=== PATIENT | female | born 1965 | race Hispanic/Latino ===

== ENCOUNTER 2018-03-26 11:58 | Emergency (ER) | payer MEDICARE, SELFPAY ==
[2018-03-26 11:59] VITALS: BP 129/84; PULSE 89; RESP 16; TEMP 36.3; BMI 30.1
[2018-03-26 12:04] VITALS: PULSE 87; RESP 16; O2SAT 97
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
[2018-03-26] MEDS: Ibuprofen 400 MG Tablet 800 MG PO (12:34)
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
[2018-03-26 13:32] VITALS: BP 108/78; PULSE 84; RESP 16; O2SAT 98
== END 2018-03-26 13:34 | disposition home or self-care (01) ==
PROVIDERS: Emergency Provider Emergency Medicine; Family Provider Family Medicine; PCP Family Medicine
DX: S16.1XXA Strain of muscle, fascia and tendon at neck level, initial encounter (principal); V53 Occupant of pick-up truck or van injured in collision with car, pick-up truck or van; Y93.9 Activity, unspecified; Y92.481 Parking lot as the place of occurrence of the external cause; Y99.9 Unspecified external cause status
CPT/HCPCS: 72040; 99282

== ENCOUNTER 2018-08-19 16:34 | Emergency (ER) | payer MEDICARE, SELFPAY ==
[2018-08-19 16:35] VITALS: BP 143/84; PULSE 91; RESP 16; TEMP 36.4; O2SAT 98; BMI 29.6
--- NOTE | 2018-08-19 19:27 | CT_ITS ---
STUDY: CT BRAIN WITHOUT CONTRAST REASON FOR EXAM: Female, 52 years old. Headache, dizziness RADIATION DOSAGE (If Supplied By Facility): CTDIvol = ( 44.99 ) mGy, DLP = ( 796.11 ) mGycm TECHNIQUE: Transaxial CT imaging of the brain was performed without administration of intravenous contrast material. Individualized dose optimization techniques were used for this CT. COMPARISON: None. FINDINGS: Normal soft tissue structures. Normal calvarium. Normal size ventricles and extra-axial spaces for the patient's age. Normal white matter tracts of the cerebral hemispheres. Normal basal ganglia and thalami. Normal brainstem. Normal cerebellum. There is no intracranial hemorrhage. There are no findings of an acute ischemic infarction. Normal visualized paranasal sinuses. CT/Brain/Head without Contrast IMPRESSION: Normal unenhanced CT scan of the brain. Electronically Signed: Jac Larose DO at 20:29 EDT Tel [phone], Service support ,
[2018-08-19] MEDS: Ondansetron ODT 4 MG Tablet PO (19:45)
[2018-08-19 21:01] VITALS: BP 136/78; PULSE 88; RESP 16; O2SAT 98
--- NOTE | 2018-08-19 21:02 | ED.VISSUMM ---
- ER Visit Summary Date of Service: 08/19/18 Chief Complaint: Headache History of Present Illness: The patient is a 52 F presenting with headache. She states this headache has been ongoing for several months. 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 She did not follow up following this diagnosis. She has had no recent trauma. She has nausea associated with vomiting. Denies numbness or weakness. Denies fever. Denies new complaints. Physical Examination: Vitals are stable. Patient is afebrile. Alert no acute distress. HEENT exam is unremarkable. Neck is supple. No meningismus Lungs are clear and equal bilaterally. Heart is regular rate and rhythm. Abdomen is soft nontender nondistended. Extremities are unremarkable. Skin is warm and dry. No focal neurologic deficit. Normal strength and sensation Remainder of exam is unremarkable. Emergency Department Course and Treatment: Patient drove herself to the emergency department. She was given Zofran p.o. with improvement of her nausea. CT head shows no acute process. Patient is resting comfortably on reevaluation. She is given Dr. Roldan for neurology follow-up. She is advised to return to ED for any worsening complaints. Disposition: Discharge home Impression: Chronic headaches This note was generated with [employer] dictation software. It may contain incorrect words, spelling, and punctuation that were not noted in review of the chart prior to signing ED Disposition - Plan for ED Patient: Chief Complaint: Headache Referrals: Daniel Stapleton MD [Primary Care Provider] -
--- NOTE | 2018-08-19 21:04 | ED.DEP ---
ED Disposition - Plan for ED Patient: Chief Complaint: Headache Instructions: ED Cephalgia Unspecified Referrals: Daniel Stapleton MD [Primary Care Provider] - Jeff Roldan MD [STAFF PHYSICIAN] -
== END 2018-08-19 21:10 | disposition home or self-care (01) ==
LOC: ED 19:09
PROVIDERS: Emergency Provider Emergency Medicine; Family Provider Family Medicine; PCP Family Medicine
DX: R51 Headache (principal); R11.2 Nausea with vomiting, unspecified; Z72.0 Tobacco use; M85.2 Hyperostosis of skull
CPT/HCPCS: 70450; 99282

== ENCOUNTER → 2018-08-20 10:21 | Outpatient (CLI) | payer MEDICARE, SELFPAY | PROVIDERS: Family Provider Family Medicine; PCP Family Medicine; Visit Provider Family Medicine | DX: Z00.00 Encounter for general adult medical examination without abnormal findings (principal) | CPT/HCPCS: 36415 ==

== ENCOUNTER 2018-09-10 13:43 | Emergency (ER) | payer MEDICARE, SELFPAY ==
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
[2018-09-10 13:45] VITALS: BP 112/64; PULSE 94; RESP 16; TEMP 36.7; O2SAT 97; BMI 27.5
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
--- NOTE | 2018-09-10 14:10 | CM.ED ---
Call placed to social sciences professor, Francine Carver. No response at this time. Will attempt to reach other available social workers.
[2018-09-10 14:52] VITALS: BP 135/108; PULSE 96; RESP 15; O2SAT 100
--- NOTE | 2018-09-10 14:58 | EKG12_ITS ---
Test Reason : DYSRHYTHMIA Blood Pressure : / mmHG Vent. Rate : 070 BPM Atrial Rate : 070 BPM P-R Int : 138 ms QRS Dur : 076 ms QT Int : 432 ms P-R-T Axes : 059 046 048 degrees QTc Int : 466 ms Normal sinus rhythm Normal ECG Confirmed by TOI SEN, SOPHIA ([id number]), web editor GOLD HARPER ([id number]) on 09/14/2018 3:22:19 PM Referred By: MARY ANNE Confirmed By:SOPHIA CM MD
--- NOTE | 2018-09-10 15:10 | NURSING ---
NO OLD EKGS
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
[2018-09-10] MEDS: Acetaminophen 500 MG Tablet 1000 MG PO (15:23)
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
[2018-09-10 16:09] LABS: Absolute Lymphocyte Count 2.33 X10^3/ul (0.83-4.51); Absolute Neutrophil Count 4.1 X10^3/uL (2.0-7.7); Basophil# 0.01 X10^3/uL; Basophil% 0.1 % (0-1); Eosinophil# 0.09 X10^3/uL; Eosinophils% 1.3 % (0-5); Hematocrit 41.3 % (37-47); Hemoglobin 13.6 g/dl (12.0-15.0); Lymphocyte # 2.33 X10^3/ul (4.0); Lymphocyte % 34.1 % (19-41); Mean Corp Hgb Conc 32.9 g/gl (32-36); Mean Corpuscular Hgb 29.9 pg (27.0-32.0); Mean Corpuscular Volume 90.8 fL (81-99); Mean Platelet Vol. 10.4 fl (6.2-12.0); Monocyte# 0.33 X10^3/uL; Monocyte% 4.8 % (0-10); Neutrophil # 4.06 X10^3/uL (2.7-7.7); Neutrophil % 59.6 % (47-70); Platelet Count 268 K/mm3 (150-450); RBC Distribution Width CV 15.6 % (11.6-14.6); RBC Distribution Width SD 51.8 fl (35.1-43.9); Red Blood Count 4.55 M/mm3 (4.2-5.4); White Blood Count 6.8 K/mm3 (4.4-11.0)
[2018-09-10 16:10] LABS: POSITIVE COUNT NO; POSITIVE DIFFERENTIAL NO; POSITIVE MORPHOLOGY NO
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
[2018-09-10 16:27] LABS: Anion Gap 8 (5-15); BUN 11 mg/dL (7-18); BUN/Creat Ratio 11.5 RATIO (10-20); Calcium,Total 8.7 mg/dL (8.5-10.1); Chloride 111 mmol/L (98-107); Creatinine, Serum 0.95 mg/dL (0.55-1.02); EST Glomerular Filtration Rate 66 mL/min (>60); Est Glom Filt Rate - Afr Amer 79 mL/min (>60); Estimated Creatinine Clearance 70.67 ml/min; Glucose 94 mg/dL (74-106); Potassium 3.2 mmol/L (3.5-5.1); Sodium Level 144 mmol/L (136-145)
[2018-09-10 16:29] LABS: Acetaminophen (Tylenol) Level < 2.0 ug/mL (10.0-30.0); Salicylate 2.7 mg/dL (2.8-20.0)
[2018-09-10 16:34] LABS: Pregnancy, Serum, hCG Quali. NEGATIVE Negative (0-9 Nonpreg)
[2018-09-10 16:42] VITALS: BP 120/99; PULSE 87; RESP 16; O2SAT 97
--- NOTE | 2018-09-10 16:54 | ED.RN ---
PRESCRIPTION BOTTLES GIVEN BACK TO SPOUSE.
[2018-09-10 18:08] VITALS: BP 136/80; PULSE 77; RESP 16; O2SAT 97
[2018-09-10 18:21] LABS: Mucous, Urine 0 SEEN /hpf (<or=2+); Red Blood Cells-Urine 0 SEEN /hpf (0-5); White Blood Cells 0 SEEN /hpf (0-5)
[2018-09-10 18:33] LABS: Color, Urine Yellow (Yellow); Glucose, Dipstick Normal (Normal); Ketone-Dipstick Negative (Negative); Leukocyte Esterase-Dipstick Negative /ul (Negative); Nitrite-Dipstick Negative (Negative); Occult Blood-Urine 10 /ul (Negative); Protein-Dipstick Negative (Negative); Urine Bilirubin Dipstick Negative (Negative); Urine Clarity Sl. Cloudy (Clear); Urine Urobilinogen 1 mg/dl (Normal)
[2018-09-10 18:52] LABS: Squamous Epithelial Cells - UA 0-5 SEEN /hpf (5-10)
[2018-09-10 18:53] LABS: Amorphous Sediment 1+; Bacteria RARE /hpf (None Seen)
[2018-09-10 19:01] LABS: Amphetamine Urine VISTA NEGATIVE (<1000 ng/mL); Barbiturate Urine VISTA NEGATIVE (< 200 ng/mL); Benzodiazepine Urine VISTA NEGATIVE (< 200 ng/mL); Cocaine Urine VISTA NEGATIVE (< 300 ng/mL); Ecstacy Urine VISTA NEGATIVE (< 500 ng/mL); Methadone Urine VISTA NEGATIVE (< 300 ng/mL); PCP Urine VISTA NEGATIVE (< 25 ng/mL); THC Urine VISTA NEGATIVE (< 50 ng/mL); Vista UDS pH Range 7
[2018-09-10 20:07] VITALS: PULSE 86; RESP 16; O2SAT 97
[2018-09-10 22:00] VITALS: RESP 16
[2018-09-11] VITALS (8 sets, daily range): BP systolic 110–128; BP diastolic 68–76; PULSE 70–85; RESP 13–20; O2SAT 95–99
[2018-09-11] MEDS: Gabapentin 600 MG Tablet PO (08:56)
[2018-09-11] MEDS: Divalproex Sodium 125 MG Tablet PO (08:56)
[2018-09-11] MEDS: FLUoxetine 20 MG Capsule 60 MG PO (08:57)
[2018-09-11] MEDS: Furosemide 40 MG Tablet PO (08:57)
[2018-09-11] MEDS: Topiramate 50 MG Tablet PO (08:57)
--- NOTE | 2018-09-11 10:43 | ED.RN ---
CALLED [facility] AT [phone] AND DISPATCHER STATED THAT THE SQUAD SHOULD BE HERE IN 30-45 MINUTES.
== END 2018-09-11 11:13 ==
LOC: ED 15:00
PROVIDERS: Emergency Provider Emergency Medicine; Family Provider Family Medicine; PCP Family Medicine
DX: T14.91XA Suicide attempt, initial encounter (principal); T43.592A Poisoning by other antipsychotics and neuroleptics, intentional self-harm, initial encounter; F41.9 Anxiety disorder, unspecified; Z72.0 Tobacco use; F31.9 Bipolar disorder, unspecified; Y92.9 Unspecified place or not applicable; Y93.9 Activity, unspecified; Y99.9 Unspecified external cause status
CPT/HCPCS: 70450; 80048; 80307; 80320; 80329; 81001; 84703; 85025; 93005; 99285; G0480

== ENCOUNTER → 2018-10-09 16:07 | Outpatient (CLI) | payer MEDICARE, SELFPAY ==
[2018-10-09 17:56] LABS: ALB/GLOB Ratio 0.9 RATIO (0.9-2.4); AST(SGOT) 17 U/L (15-37); Alanine Aminotransfer ALT/SGPT 27 U/L (13-56); Albumin, Serum 3.2 g/dL (3.2-5.0); Alkaline Phosphatase 101 U/L (45-117); Anion Gap 6 (5-15); BUN 7 mg/dL (7-18); BUN/Creat Ratio 8.3 RATIO (10-20); Calcium,Total 8.5 mg/dL (8.5-10.1); Chloride 108 mmol/L (98-107); Creatinine, Serum 0.84 mg/dL (0.55-1.02); EST Glomerular Filtration Rate 76 mL/min (>60); Est Glom Filt Rate - Afr Amer 92 mL/min (>60); Globulin 3.5 g/dL (2.2-4.2); Glucose 79 mg/dL (74-106); Potassium 3.3 mmol/L (3.5-5.1); Protein, Total 6.7 g/dL (6.4-8.2); Sodium Level 140 mmol/L (136-145)
[2018-10-09 18:42] LABS: HIV - WCH Non-Reactive (Nonreactive)
== END ==
PROVIDERS: Family Provider Family Medicine; PCP Family Medicine; Visit Provider Family Medicine
DX: Z20.6 Contact with and (suspected) exposure to human immunodeficiency virus [HIV] (principal)
CPT/HCPCS: 36415; 80053; 86703

== ENCOUNTER → 2018-12-08 16:10 | Outpatient (CLI) | payer MEDICARE, SELFPAY ==
[2018-12-11 12:45] LABS: HPV Reflexed? NOT INDICATED
== END ==
PROVIDERS: Family Provider Family Medicine; PCP Family Medicine; Referring Provider Nurse Practitioner Adult Health; Visit Provider Nurse Practitioner Adult Health
DX: Z01.419 Encounter for gynecological examination (general) (routine) without abnormal findings (principal)
CPT/HCPCS: 88175; G0145

== ENCOUNTER → 2018-12-14 13:16 | Outpatient (CLI) | payer MEDICARE, SELFPAY ==
--- NOTE | 2018-12-14 13:19 | BI_ITS ---
MAMMOGRAPHY - BILATERAL DIAGNOSTIC REASON FOR EXAM: Female, 53 years old. Left breast thickening/lump with pain and redness. PERTINENT HISTORY: Patient has a history of prior bilateral breast reduction surgery. TECHNIQUE: Digital bilateral breast dalila (3D mammographic acquisition) in the CC and MLO projections. 2-D mediolateral oblique (MLO) and craniocaudad (CC) views of both breasts were obtained. CAD: Full Field Digital Mammography with Computer Added Detection was performed. COMPARISON: No comparison mammograms available at this time. If any prior films become available, an addendum to this report can be generated. FINDINGS: Breast Composition: The breasts are heterogeneously dense, which may obscure small masses. Well-defined nodular density is seen in the upper outer quadrant of the right breast. This measures 2.3 cm x 1.3 cm. Asymmetrical nodular density seen in the upper slightly lateral aspect of the left breast. This corresponds to the palpable abnormality. This measures 3 cm x 4.4 cm. Correlation with ultrasound is recommended bilaterally. Small bilateral axillary lymph nodes. No other significant abnormalities are identified. BI/DIAG MAMM W/CAD, BILAT IMPRESSION: Nodular density in the upper outer quadrant of the right breast as well as asymmetrical density in the left breast corresponding to the palpable abnormality. Correlation with ultrasound of both breasts is recommended. ASSESSMENT CATEGORY: BIRADS Category 0: Incomplete. Need additional imaging evaluation. A letter regarding these results will be sent to the patient by the facility within 30 days. Approximately 10% of breast cancers are not detected by mammography. A normal mammogram should not delay biopsy of a clinically suspicious abnormality. Electronically Signed: Edilberto Farah MD at 8:42 EST Tel [phone], Service support ,
--- NOTE | 2018-12-14 13:19 | US_ITS ---
STUDY: ULTRASOUND BREAST - RIGHT REASON FOR EXAM: Female, 53 years old. TECHNIQUE: Axial and longitudinal images of the RIGHT breast were performed with a high resolution ultrasound transducer. COMPARISON: Comparison is made with prior mammogram done earlier in the day. FINDINGS: RIGHT Breast: There is a 3 mm x 4 mm x 2 mm benign appearing lymph node at the 9:00 position of the breast at 1 cm from the nipple. There is also evidence of a 1.5 cm x 1.4 cm x 0.6 cm hypoechoic irregular nodular density seen at the 10:00 position of the breast at 8 cm from the nipple. A biopsy is recommended for further evaluation. IMPRESSION: 1.5 cm x 1.4 cm x 0.6 cm hypoechoic slightly irregular nodule at the 10:00 position in the breast M is from nipple. A biopsy recommended for further evaluation. ASSESSMENT CATEGORY: BIRADS Category 4: Suspicious - Biopsy Should Be Considered. A letter regarding these results will be sent to the patient by the facility within 30 days. Electronically Signed: Edilberto Farah MD at 8:43 EST Tel [phone], Service support , STUDY: ULTRASOUND BREAST - LEFT REASON FOR EXAM: Female, 53 years old. Palpable lump left breast. TECHNIQUE: Axial and longitudinal images of the LEFT breast were performed with a high resolution ultrasound transducer. COMPARISON: Comparison is made with prior mammogram done earlier today. FINDINGS: LEFT Breast: The upper outer quadrant of the left breast was examined by ultrasound. The palpable abnormality corresponds to a focal area of dense fibroglandular tissue. Incidental note is made of a 6 mm x 6 mm x 4 mm cyst at the 1:00 position of the breast at 8 cm from the nipple. US/Breast Limited Unilateral IMPRESSION: The palpable abnormality corresponds to dense fibroglandular tissue. 6 mm x 6 mm x 4 mm cyst at the 1:00 position of the breast at 8 cm some the nipple. ASSESSMENT CATEGORY: BIRADS Category 2: Benign. A letter regarding these results will be sent to the patient by the facility within 30 days. Electronically Signed: Edilberto Farah MD at 8:45 EST Tel [phone], Service support ,
== END ==
PROVIDERS: Family Provider Family Medicine; PCP Family Medicine; Referring Provider Nurse Practitioner Adult Health; Visit Provider Nurse Practitioner Adult Health
DX: N63.23 Unspecified lump in the left breast, lower outer quadrant (principal)
CPT/HCPCS: 76642; 77062; 77066; G0279

== ENCOUNTER → 2018-12-22 08:07 | Outpatient (CLI) | payer MEDICARE, SELFPAY ==
[2018-12-16 13:20] VITALS: BMI 26.7
--- NOTE | 2018-12-22 08:23 | MRI_ITS ---
STUDY: BILATERAL BREAST MR WITHOUT AND WITH CONTRAST REASON FOR EXAM: Female, 53 years old. Left breast pain. Right breast mass. History of bilateral breast reduction surgery. TECHNIQUE: Multi-sequence multi-echo imaging of both breasts was performed with a dedicated breast coil. T1-weighted and T2-weighted images were performed before the administration of contrast. T1-weighted images were also performed after the administration of 9 mL of Gadavist contrast intravenously without complications. COMPARISON: Bilateral mammogram dated December 14, 2018 and right and left breast ultrasound examinations dated December 14, 2018. FINDINGS: RIGHT BREAST: The breast tissue is scattered fibroglandular densities with no background enhancement. There are no abnormal enhancing masses or areas of non-mass enhancement in the right breast. The hypoechoic mass at the 10:00 position of the right breast 8 cm from the nipple seen on the ultrasound shows no enhancement on the breast MRI study. However, it is still recommended that ultrasound-guided biopsy/excision of this mass be performed because of its ultrasonographic characteristics. LEFT BREAST: The breast tissue is scattered fibroglandular densities with no background enhancement. There are no abnormal enhancing masses or areas of non-mass enhancement in the left breast. There are no enlarged or abnormal lymph nodes. There is no abnormality in the visualized regions of the chest or liver. MRI/Breast Bilateral W/O and W IMPRESSION: No significant abnormality on the breast MRI study with contrast. Ultrasound-guided biopsy/excision of the right breast mass seen on ultrasound is recommended for histologic confirmation, as outlined above. CATEGORY: BIRADS Category 4: Suspicious - Biopsy Should Be Considered. A letter regarding these results will be sent to the patient by the facility within 30 days. Electronically Signed: Navneet Yoon MD at 14:25 EST , Service support ,
--- OUTSIDE RECORDS SUMMARY | 2019-02-23 08:47 | XMS RPT_ITS ---
:1965 Author Organization OHIP Support Name Relationship Address Phone PREETI BRYANT Unavailable [address] + [address] [place] [address] D Unavailable Unavailable Unavailable SIXTO HERRERA Unavailable Unavailable + [place] [address] PREETI BRYANT Unavailable [address] + [address] [place] [address] D Unavailable Unavailable Unavailable PREETI BRYANT Unavailable [address] [place] [address] D Unavailable Unavailable Unavailable PREETI BRYANT Unavailable [address] [place] [address] D Unavailable Unavailable Unavailable PREETI BRYANT Unavailable [address] + [address] [place] [address] D Unavailable Unavailable Unavailable PREETI BRYANT Unavailable [address] [place] [address] D Unavailable Unavailable Unavailable PREETI BRYANT Unavailable [address] [place] [address] D Unavailable Unavailable Unavailable PREETI BRYANT Unavailable [address] [place] [address] D Unavailable Unavailable Unavailable PREETI BRYANT Unavailable [address] + [place] [address] UNE Unavailable Unavailable Unavailable PREETI BRYANT Unavailable [address] [place] [address] D Unavailable Unavailable Unavailable Care Team Providers Name Role Phone Jen Mcdermott Attending Unavailable Jen Mcdermott Referring Unavailable Daniel Stapleton Primary Care Unavailable Jen Mcdermott Attending Unavailable Jen Mcdermott Referring Unavailable Stapleton, Daniel Primary Care Unavailable Stapleton, Daniel Primary Care Unavailable Clint Wells Attending Unavailable Stapleton, Daniel Primary Care Unavailable Mehreen Harvey Attending Unavailable Stapleton, Daniel Attending Unavailable Stapleton, Daniel Primary Care Unavailable Stapleton, Daniel Primary Care Unavailable Ciro John Attending Unavailable Stapleton, Daniel Attending Unavailable Stapleton, Daniel Primary Care Unavailable Robotham, Evita Attending Unavailable Tickton, Jen Referring Unavailable Robotham, Evita Attending Unavailable Robotham, Evita Referring Unavailable Stapleton, Daniel Primary Care Unavailable Leila Katz Attending Unavailable Stapleton, Daniel R Primary Care Unavailable JHONNY LENTZ Referring Unavailable AUSTIN, JODI Attending Unavailable AUSTIN, JODI Attending Unavailable QUANG PORTER Attending Unavailable QUANG PORTER Attending Unavailable ALICE UNDERWOOD, DR. DANIEL Keen Attending Unavailable ALICE UNDERWOOD, DR. DANIEL Keen Attending Unavailable PROBLEMS PROBLEMS DATE TYPE CONDITION / CODE ATTENDING STATUS SOURCE 12/16/2018 Unknown N64.4 - Robotham, Active [place] Mastodynia [facility] N64.4(ICD-10) Hospital Repository 12/16/2018 Unknown N63.10 - [place], Active [place] Unspecified lump [facility] in the right Hospital breast, Repository unspecified quadrant / N63.10(ICD-10) 12/14/2018 Unknown N63.23 - Tickton, Active [place] Unspecified lump [facility] in the left Hospital breast, lower Repository outer quadrant / N63.23(ICD-10) 08/31/2018 Unknown Z00.00 - Daniel Stapleton Active [place] Encounter for [facility] medical Repository examination without abnormal findings / Z00.00(ICD-10) 07/09/2018 Active Unknown / NA Active [facility] UNK(Unknown) Main [place] Repository 07/09/2018 Unknown M54.2 - Clint Wells Active [place] Cervicalgia / [facility] M54.2(ICD-10) Hospital Repository PROCEDURES PROCEDURES No Procedure Records FoundRESULTS RESULTS BREAST BILATERAL W/O Observed: 12/22/2018 Status: F Source: [place] 8:24 AM [facility] [place] REPOSITORY [facility] Imaging Services [address] [place] [address] Breast Bilateral W/O and W MR#: [id number] Acct: [id number] Name: SHIREEN BRYANT Rep #: [id number] : 1965 F 53 From: Navneet Yoon MD PCP: Daniel Stapleton MD Status: REG CLI Study: Breast Bilateral W/O and W Date of Exam: 12/22/18 Exam# [id number] Ordering Dr: Evita Davies MD STUDY: BILATERAL BREAST MR WITHOUT AND WITH CONTRAST REASON FOR EXAM: Female, 53 years old. Left breast pain. Right breast mass. History of bilateral breast reduction surgery. TECHNIQUE: Multi-sequence multi-echo imaging of both breasts was performed with a dedicated breast coil. T1-weighted and T2- weighted images were performed before the administration of contrast. T1- weighted images were also performed after the administration of 9 mL of Gadavist contrast intravenously without complications. COMPARISON: Bilateral mammogram dated December 14, 2018 and right and left breast ultrasound examinations dated December 14, 2018. FINDINGS: RIGHT BREAST: The breast tissue is scattered fibroglandular densities with no background enhancement. There are no abnormal enhancing masses or areas of non-mass enhancement in the right breast. The hypoechoic mass at the 10:00 position of the right breast 8 cm from the nipple seen on the ultrasound shows no enhancement on the breast MRI study. However, it is still recommended that ultrasound-guided biopsy/excision of this mass be performed because of its ultrasonographic characteristics. LEFT BREAST: The breast tissue is scattered fibroglandular densities with no background enhancement. There are no abnormal enhancing masses or areas of non-mass enhancement in the left breast. There are no enlarged or abnormal lymph nodes. There is no abnormality in the visualized regions of the chest or liver. MRI/Breast Bilateral W/O and W IMPRESSION: No significant abnormality on the breast MRI study with contrast. Ultrasound-guided biopsy/excision of the right breast mass seen on ultrasound is recommended for histologic confirmation, as outlined above. CATEGORY: BIRADS Category 4: Suspicious - Biopsy Should Be Considered. A letter regarding these results will be sent to the patient by the facility within 30 days. Electronically Signed: Navneet Yoon MD at 14:25 EST , Service support , CC: Daniel Stapleton MD; Evita Davies MD Shipboard Intelligence Analyst: Signed SURGERY VISIT REPORT Observed: 12/18/2018 Status: F Source: [place] 8:30 AM [facility] [place] REPOSITORY [facility] [address] [place] [address] OFFICE VISIT Date of Service: 12/16/18 MR#: [id number] Acct: [id number] Name: SHIREEN BRYANT Rep #: [id number] : 1965 Provider: Evita Davies MD Age/Sex: 53/F Location: [facility] Status: Signed Intake Vital Signs12/16/18 Height 5 ft 8 in 12/16/18 Weight: 176 lb Intake Visit Reasons: L Breast Birads 4 Stallion Manager Required: No Is patient in pain?: No Allergies No Known Allergies Allergy (Verified 12/16/18 13:21) Medications Fluoxetine HCl [Prozac] 60 mg PO DAILY 09/10/18 [History Confirmed 12/16/18] Gabapentin [Neurontin] 600 mg PO DAILY 09/10/18 [History Confirmed 12/16/18] Meclizine HCl [Travel Sickness] 25 mg PO 09/10/18 [History Confirmed 12/16/18] buspirone 5 mg tablet 5 mg PO .prn tab 12/16/18 [History Confirmed 12/16/18] lurasidone 20 mg tablet 20 mg PO DAILY 12/16/18 [History Confirmed 12/16/18] [facility] Medical History Abnormal mammogram (Acute) Arthritis (Acute) Back problem (Acute) Depression with anxiety (Acute) Occipital neuralgia (Acute) Seizures (Acute) Surgical History History of bilateral breast reduction surgery (Acute) History of shoulder surgery (Acute) Family History Mother Asthma Arthritis Diabetes Hypertension High cholesterol Uncle Colon cancer CVA (cerebral vascular accident) Aunt Cancer leukemia Heart disease Social History Smoking Status: Current every day smoker alcohol intake: never substance use type: does not use HPI HPI HPI: SHIREEN BRYANT, is a 53 F who presents to the office today for abnormal breast imaging. Patient states that back in the beginning of December she did have the flu with body aches chills but she also began having left-sided breast pain that started about at the 3:00 area of the left breast and could radiate up towards her chest or towards the axilla and then down the upper part of the arm. Patient states she did recover from her flulike symptoms. But since then she still had some nausea and vomiting x3 and she did still feel chills like this morning at 5 AM she had left pain in her lateral breast even just after she was putting out a cigarette. Patient states she gets the shooting sharp pains multiple times a day and they can last for seconds or occasionally they can last around 20 minutes and usually settling in the lateral aspect of the left breast. Prior to December she states she has had some burning sensation along her reduction scars but it was nothing like this current pain. Patient does admit to a lot of caffeine intake. Patient does have past medical history of bilateral breast reduction done in 2008 in [place]. She denies any trauma to her breast or any nipple discharge or changes to overlying skin. Patient did have a bilateral diagnostic mammogram and bilateral ultrasounds. The diagnostic mammogram on the right did see a well-defined nodular density in the upper outer quadrant and on the left side area that of asymmetrical nodular density in the upper slightly lateral aspect of the left breast. Given a BI-RADS 0. The ultrasound of the right breast did show a 1.5 cm x 1.4 cm x 0.6 cm hypoechoic slightly irregular nodule at 10:00 8 cm from the nipple. Given a BI-RADS 4. Patient's left breast ultrasound only showed focal area of dense fibroglandular tissue and a simple cyst at 1:00 8 cm from the nipple given a BI-RADS 2. Nellie model Age: 53 Age of menses: 13 Age at time of first child: 33 Family history of breast cancer: None Number of past breast biopsies: None Number breast biopsy showing atypical hyperplasia: N/A Race/ethnicity: 5 year risk 1.5 % (average of 1.2 %) Lifetime risk 10.6 % (average 8.7 %) ROS General General: Yes fatigue; no weight change, appetite, colon cancer, breast cancer or weakness HEENT HEENT: No difficulty swallowing, eye injury, eye surgery, swollen glands or hoarseness Endo Endocrine: No thyroid disease, diabetes mellitus, thyroid cancer, Hair loss, heat intolerance or cold intolerance Skin Skin: No rash or changing moles Breast Breast: Yes abnormal mammogram; no left breast lump, right breast lump, nipple discharge, breast pain, abnormal US or breast enlargement Musc Musculoskeletal: Yes back problems and arthritis; no rheumatoid arthritis, gout or joint pain Cardio Cardiovascular: No murmur, pacemaker, heart disease, atrial fibrillation, high blood pressure, heart attack, heart stent, palpitations, shortness of breat with exertion or chest pain Psych Psychiatric: Yes depression and anxiety; no hearing voices Resp Respiratory: No shortness of breath, Yes sleep apnea, Yes cough, No COPD, No asthma, No emphysema, No wheezing Gastro Gastrointestinal: No abdominal pain, Yes nausea or vomiting, No diarrhea, No constipation, No blood in stool, No acid reflux, No hemorrhoids, No ulcers, No gallbladder problem, No black,tarry stools Jack Hematologic: No blood thinners, No blood disorders, No bleeding, No anemia, No blood clots Neuro Neurologic: No system reviewed and no additional complaints, except as docu, No as per HPI, No abnormal walking, No abnormal hearing, No abnormal movements, No abnormal speech, No behavioral changes, No burning sensations, No confusion, No seizure-like activity, No unsteadiness, No dizziness, No localized weakness, No frequent falls, No headache(s), No lack of coordination, No loss of vision, No memory loss, Yes numbness, No other visual disturbances, No radiating pain, No restless legs, No sensory deficit, No fainting, Yes tingling, No tremor(s), No weakness, No other Exam Const General: cooperative, comfortable, no acute distress Chest Breast inspection: normal inspection of the breasts Breast Palpation: No nipple discharge Other: Inspection: Symmetric bilaterally, right breast: no masses or lumps appreciated, fibroglandular, no nipple discharge. Left breast: No lumps or masses appreciated, tenderness palpation about 9:00, fibroglandular, no nipple discharge, no supraclavicular or axillary adenopathy bilaterally Cardio Heart Sounds: no murmurs Assessment AND Plan Problems 1. Breast pain, left N64.4 2. Mass of right breast on mammogram N63.10 Plan Patient's main complaint is her left breast pain which does radiate to her chest as well as axilla but imaging does not show any obvious lesions at the site. Also on exam she does have fibroglandular breast tissue unable to feel any discrete masses on either breast. Ultrasound did show a hypoechoic lesion on her right breast at 10:00 8 cm from the nipple. Will plan to get breast MRI to better evaluate for the breast pain and prior to doing the breast biopsy. I have discussed above with the patient. I have recommended RIGHT ultrasound guided needle core breast biopsy with vacuum assistance. I have described the procedure to the patient. A marker clip will be placed to identify the location. Patient has been counseled to the risks/benefits of the procedure. I have explained the risks of the surgery, including but not limited to: infection, bleeding, injury to any blood vessels/nerves, scar tissue, missing the lesion, further surgery, etc. - the patient understands and agrees to proceed. I have answered all of the patient's questions to her satisfaction and she has no further questions. Evita Davies M.D. Pager: [phone] [facility] [address] [place] [address], [address] [place] [address] Office: [phone] Orders Orders: Plan Detail Follow Up schedule MRI then us guided bx of right Coding Level of Care Code Off vis,new,level 4 Diagnoses Breast pain, left N64.4 Mass of right breast on mammogram N63.10 Time Spent (min) 45 12/18/18 0830 <Electronically signed by Evita Davies MD> Date Evita Davies MD Cosigner Signature: Date (if applicable) CC: JESSICA Mcdermott; Daniel Stapleton MD DIAG MAMM W/CAD, Observed: 12/14/2018 Status: F Source: [place] 1:23 PM [facility] REPOSITORY [facility] Imaging Services [address] [place] [address] DIAG MAMM W/CAD, BILAT MR#: [id number] Acct: [id number] Name: SHIREEN BRYANT Rep #: [id number] : 1965 F 53 From: Edilberto Farah MD PCP: Daniel Stapleton MD Status: REG CLI Study: DIAG MAMM W/CAD, BILAT Date of Exam: 12/14/18 Exam# [id number] Ordering Dr: Jen Mcdermott CORPORATE BANKING OFFICER-C MAMMOGRAPHY - BILATERAL DIAGNOSTIC REASON FOR EXAM: Female, 53 years old. Left breast thickening/lump with pain and redness. PERTINENT HISTORY: Patient has a history of prior bilateral breast reduction surgery. TECHNIQUE: Digital bilateral breast dalila (3D mammographic acquisition) in the CC and MLO projections. 2-D mediolateral oblique (MLO) and craniocaudad (CC) views of both breasts were obtained. CAD: Full Field Digital Mammography with Computer Added Detection was performed. COMPARISON: No comparison mammograms available at this time. If any prior films become available, an addendum to this report can be generated. FINDINGS: Breast Composition: The breasts are heterogeneously dense, which may obscure small masses. Well-defined nodular density is seen in the upper outer quadrant of the right breast. This measures 2.3 cm x 1.3 cm. Asymmetrical nodular density seen in the upper slightly lateral aspect of the left breast. This corresponds to the palpable abnormality. This measures 3 cm x 4.4 cm. Correlation with ultrasound is recommended bilaterally. Small bilateral axillary lymph nodes. No other significant abnormalities are identified. BI/DIAG MAMM W/CAD, BILAT IMPRESSION: Nodular density in the upper outer quadrant of the right breast as well as asymmetrical density in the left breast corresponding to the palpable abnormality. Correlation with ultrasound of both breasts is recommended. ASSESSMENT CATEGORY: BIRADS Category 0: Incomplete. Need additional imaging evaluation. A letter regarding these results will be sent to the patient by the facility within 30 days. Approximately 10% of breast cancers are not detected by mammography. A normal mammogram should not delay biopsy of a clinically suspicious abnormality. Electronically Signed: Edilberto Farah MD at 8:42 EST Tel [phone], Service support , CC: JESSICA Mcdermott; Daniel Stapleton MD Shipboard Intelligence Analyst: Signed BREAST LIMITED Observed: 12/14/2018 Status: F Source: [place] UNILATERAL 1:23 PM [facility] [place] REPOSITORY [facility] Imaging Services [address] [place] [address] Breast Limited Unilateral MR#: [id number] Acct: [id number] Name: SHIREEN BRYATN Rep #: [id number] : 1965 F 53 From: Edilberto Farah MD PCP: Daniel Stapleton MD Status: REG CLI Study: Breast Limited Unilateral Date of Exam: 12/14/18 Exam# [id number] Ordering Dr: Jen Mcdermott CORPORATE BANKING OFFICER-C STUDY: ULTRASOUND BREAST - RIGHT REASON FOR EXAM: Female, 53 years old. TECHNIQUE: Axial and longitudinal images of the RIGHT breast were performed with a high resolution ultrasound transducer. COMPARISON: Comparison is made with prior mammogram done earlier in the day. FINDINGS: RIGHT Breast: There is a 3 mm x 4 mm x 2 mm benign appearing lymph node at the 9:00 position of the breast at 1 cm from the nipple. There is also evidence of a 1.5 cm x 1.4 cm x 0.6 cm hypoechoic irregular nodular density seen at the 10:00 position of the breast at 8 cm from the nipple. A biopsy is recommended for further evaluation. IMPRESSION: 1.5 cm x 1.4 cm x 0.6 cm hypoechoic slightly irregular nodule at the 10:00 position in the breast M is from nipple. A biopsy recommended for further evaluation. ASSESSMENT CATEGORY: BIRADS Category 4: Suspicious - Biopsy Should Be Considered. A letter regarding these results will be sent to the patient by the facility within 30 days. Electronically Signed: Edilberto Farah MD at 8:43 EST Tel [phone], Service support , STUDY: ULTRASOUND BREAST - LEFT REASON FOR EXAM: Female, 53 years old. Palpable lump left breast. TECHNIQUE: Axial and longitudinal images of the LEFT breast were performed with a high resolution ultrasound transducer. COMPARISON: Comparison is made with prior mammogram done earlier today. FINDINGS: LEFT Breast: The upper outer quadrant of the left breast was examined by ultrasound. The palpable abnormality corresponds to a focal area of dense fibroglandular tissue. Incidental note is made of a 6 mm x 6 mm x 4 mm cyst at the 1:00 position of the breast at 8 cm from the nipple. US/Breast Limited Unilateral IMPRESSION: The palpable abnormality corresponds to dense fibroglandular tissue. 6 mm x 6 mm x 4 mm cyst at the 1:00 position of the breast at 8 cm some the nipple. ASSESSMENT CATEGORY: BIRADS Category 2: Benign. A letter regarding these results will be sent to the patient by the facility within 30 days. Electronically Signed: Edilberto Farah MD at 8:45 EST Tel [phone], Service support , CC: JESSICA Mcdermott; Daniel Stapleton MD Shipboard Intelligence Analyst: Signed PAP I-G W/RFX HRHPV Collected: 12/08/2018 Status: F Source: [place] 4:10 PM [facility] REPOSITORY Order Comment: CYTOLOGY INFORMATION: - CLINICAL INFORMATION: - DATE LMP/MENOPAUSE: 11-16-18 LMP - COLLECTION VIAL: Thin Prep Vial - NETWORK INTELLIGENCE ANALYST SOURCE: CERVICAL/ENDOCERVICAL - COLLECTION TECHNIQUE: BRUSH/SPATULA Specimen Comment: [id number] Specimen Comment: Source.............Cervix;Endocervix Specimen Comment: LMP / Prev Treat...[id number] Specimen Comment: No. of containers..01 ThinPrep Vial TYPE CODE TESTS RESULT OUT OF RANGE REFERENCE UNITS LAB L7400.0800 . Normal DIAGN Comment Result Comment: NEGATIVE FOR INTRAEPITHELIAL LESION AND MALIGNANCY. FUNGAL ORGANISMS MORPHOLOGICALLY CONSISTENT WITH MARITZA SPECIES ARE PRESENT. LAB L7400.0900 . Normal ADEQ Comment Result Comment: Satisfactory for evaluation. No endocervical component is identified. LAB L7400.1400 . Normal PERFORM Comment Result Comment: Minoo Man, Pcb Designer (ASCP) LAB L7400.2575 . Normal TEST METHOD Comment Result Comment: This liquid based ThinPrep(R) pap test was screened with the use of an image guided system. LAB L7400.2600 . Normal . COMM LAB L7400.2700 . Normal PAPSMR Comment Result Comment: The Pap smear is a screening test designed to aid in the detection of premalignant and malignant conditions of the uterine cervix. It is not a diagnostic procedure and should not be used as the sole means of detecting cervical cancer. Both false-positive and false-negative reports do occur. LAB L7400.2800 . Normal HPV RFLX Comment Result Comment: The HPV DNA reflex criteria were not met with this specimen result therefore, no HPV testing was performed. Performed at: [address] [place] [id number] [employer] Facility Operator: Nisha Kramer MD, Phone: [phone] Performed By: #### L7400.0350 #### [facility] (refer to report for specific site) refer to report for address and phone number COMPREHENSIVE METABOLIC Collected: 10/09/2018 Status: F Source: [place] 4:08 PM [facility] REPOSITORY TYPE CODE TESTS RESULT OUT OF RANGE REFERENCE UNITS LAB L501.0100 74-106 mg/dL Normal GLU 79 Result Comment: Please note revised GLUCOSE reference range effective 2018. LAB L501.1000 7-18 mg/dL Normal BUN 7 LAB L501.1100 0.55-1.02 mg/dL Normal CREAT,SERUM 0.84 Result Comment: The validity of the calculated GFR AND GFRAA in patients over 70 years has not been determined. Clinical correlation is essential. LAB L501.1110 >60 mL/min Normal EST GFR 76 Result Comment: Non- GFR Calc LAB L501.1115 >60 mL/min Normal EST GFR - AA 92 Result Comment: GFR Calc LAB L501.1300 10-20 RATIO Low BUN/CRE 8.3 LAB L501.1500 6.4-8.2 g/dL Normal T PROT 6.7 LAB L501.1800 3.2-5.0 g/dL Normal ALB 3.2 LAB L501.1950 2.2-4.2 g/dL Normal GLOB 3.5 LAB L501.2000 0.9-2.4 RATIO Normal A/G 0.9 LAB L501.2200 8.5-10.1 mg/dL Normal CA 8.5 LAB L501.4100 15-37 U/L Normal AST 17 LAB L501.4305 45-117 U/L Normal ALK P 101 LAB L501.4405 13-56 U/L Normal ALT 27 LAB L501.4600 0.20-1.00 mg/dL Normal T BILI 0.20 LAB L501.5300 136-145 mmol/L Normal NA 140 LAB L501.5600 3.5-5.1 mmol/L Low K 3.3 LAB L501.5900 98-107 mmol/L High CL 108 LAB L501.6100 21.0-32.0 mmol/L Normal CO2 26.0 LAB L501.6200 5-15 Normal GAP 6 Performed By: #### L500.4050 #### [facility] [address] [place], [address] HIV - [facility] Collected: 10/09/2018 Status: F Source: [place] 4:08 PM [facility] REPOSITORY TYPE CODE TESTS RESULT OUT OF RANGE REFERENCE UNITS LAB L3890.6005 Nonreactive Normal HIV - [facility] Non-Reactive Performed By: #### L3890.6005 #### [facility] [address] [place], [address] PROGRESS Observed: 10/02/2018 Status: COMPLETED Source: [place] 6:08 PM [facility] REPOSITORY HNO ID: [id number] Author: Jessica Savage) Jakob Service: (none) Author Type: Nurse Practitioner Type: Progress Notes Filed: 10/02/2018 6:22 PM Note Text: Subjective Shireen Bryant is a 53 year old female who presents with a request to have a pimple in her right ear drained. She saw her PCP for this and he put her on Bactrim which she has been taking. She had an appointment yesterday to have the area drained but overslept and missed the appointment. Review of Systems Constitutional: Negative. Negative for fever. HENT: Positive for ear pain (right, external ). Skin: Negative. Negative for rash. BP 118/74 Pulse 89 Temp 37.1 ?C (98.7 ?F) (Left Tympanic) Resp 16 Wt 82.6 kg (182 lb) SpO2 99% No past medical history on file. No past surgical history on file. ALLERGIES Patient has no known allergies. MEDICATIONS lurasidone HCl (LATUDA ORAL) Take by mouth. meclizine HCl (MECLIZINE ORAL) Take by mouth. mupirocin (BACTROBAN) 2 % ointment Apply 1 application to affected area three times daily. Location: right ear naproxen (NAPROSYN) 250 mg tablet melatonin 5 mg/15 mL liqd busPIRone (BUSPAR) 10 mg tablet FLUoxetine (PROZAC) 20 mg capsule gabapentin (NEURONTIN) 300 mg capsule topiramate (TOPAMAX) 50 mg tablet No family history on file. Social History Substance Use Topics - Smoking status: Current Every Day Smoker - Smokeless tobacco: Never Used - Alcohol use Not on file Objective Physical Exam Constitutional: She is well-developed, well-nourished, and in no distress. HENT: Right Ear: There is tenderness. No drainage or swelling. Left Ear: External ear normal. Neurological: She is alert. Skin: Skin is warm and dry. No erythema. Nursing note and vitals reviewed. ASSESSMENT/PLAN: 1. Skin infection - ICD9: 686.9, ICD10: L08.9 - No fluctuant area to be drained. - Continue taking prescribed antibiotic. - warm compresses TID - MUPIROCIN 2 % TOPICAL OINTMENT - Follow-up with your PCP in 3-5 days if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
== END ==
PROVIDERS: Family Provider Family Medicine; PCP Family Medicine; Referring Provider Surgery; Visit Provider Surgery
DX: N64.4 Mastodynia (principal); N63.10 Unspecified lump in the right breast, unspecified quadrant
CPT/HCPCS: 77049; A9585; C8908

== ENCOUNTER → 2018-12-31 07:42 | Outpatient (CLI) | payer MEDICARE, SELFPAY ==
[2018-12-16 13:20] VITALS: BMI 26.7
--- NOTE | 2018-12-31 07:46 | US_ITS ---
STUDY: ULTRASOUND BREAST - RIGHT REASON FOR EXAM: Female, 53 years old. Ultrasound guided right breast biopsy. TECHNIQUE: Axial and longitudinal images of the RIGHT breast were performed with a high resolution ultrasound transducer. COMPARISON: None. FINDINGS: RIGHT Breast: Under direct sonographic guidance, the surgeon performed core biopsies of the 1.5 cm x 1.4 cm x 0.6 cm hypoechoic irregular nodular density at the 10:00 position of breast at 8 cm from nipple. US/US Breast Biopsy 1st Lesion IMPRESSION: Ultrasound guided breast biopsy. ASSESSMENT CATEGORY: BIRADS Category 4: Suspicious - Biopsy Should Be Considered. A letter regarding these results will be sent to the patient by the facility within 30 days. Electronically Signed: Edilberto Farah MD at 10:20 EST , Service support ,
--- NOTE | 2018-12-31 08:15 | BRBX_PTH ---
PATIENT: SHIREEN EDGAR LOC: U#:[id number] AGE/SX: 60/F ROOM: RE12/31/[address]: Dr. Evita Davies MD : 1965 BED: DIS: SPEC #: [id number] RECD: 12/31/18 09:22 STATUS: DONNA CHEN #: [id number] ELINA: 12/31/18 08:[address]: Evita Davies DEPT: SURGICAL PATHOLOGY RECD BY: Darrell Gates ENTERED: 12/31/18 10:06 SP TYPE: BREAST BX OTHR DR: Dr. Daniel Stapleton MD Tissues: Right breast, NOS Procedures: Surgery Specimen Level IV HEADER OPERATION: Right breast biopsy PRE-OP DIAGNOSIS: Right breast mass 10 o'clock TISSUE SUBMITTED: Right breast core tissue ISCHEMIC TIME: 1 minute FIXATION TIME: 11.5 hours MICROSCOPIC DIAGNOSIS Right breast at 10 o'clock, core biopsy: Benign breast tissue. AM:coby 01/01/19 MICROSCOPIC DESCRIPTION Slides are reviewed. GROSS DESCRIPTION Received in fixative is one container labeled with the patient's name and designated right breast. The specimen consists of multiple irregular and elongated fragments of yellow fatty tissue measuring 1 x 0.5 x 0.1 cm. The specimen is totally submitted in one cassette. / AM:coby 12/31/18 TC:5 CPT: 48491
--- NOTE | 2018-12-31 08:41 | PCM.OP.BLANK ---
Operative Report Date of Procedure: 12/31/18 Procedure: RIGHT ultrasound-guided core biopsy Indications: 53 year-old female with hypoechoic nodule at 10:00 in the right breast 8 centimeters from the nipple. Risk benefits were discussed the patient and she elected to proceed with ultrasound guided core biopsy with clip placement Description of procedure: Patient was brought into the ultrasound room in the right breast was marked. A timeout was completed verifying correct patient, procedure, site, specially, prior to beginning procedure. The right breast was prepped and draped in usual sterile fashion and using local anesthesia was obtained with 1% lidocaine with epi. The lesion was located with the ultrasound. Small incision was made with 11 blade to introduced the mammotome through the skin. Under ultrasound guidance multiple core samples were obtained using then 13-gauge mammotome and sent in formalin for pathology. The mammotome mammostar clip was then deployed into the biopsy cavity under ultrasound guidance and a picture was taken. Upon completion procedure hemostasis was obtained and a Steri-Strip and OpSite were placed. Patient was then taken to the mammography suite for clip verification. The clip was verified. The patient tolerated the procedure well and was discharged from the breast imaging department good condition. complications: none
== END ==
PROVIDERS: Family Provider Family Medicine; PCP Family Medicine; Referring Provider Surgery; Visit Provider Surgery
DX: N63.10 Unspecified lump in the right breast, unspecified quadrant (principal); N64.4 Mastodynia
CPT/HCPCS: 19083; 88305

== ENCOUNTER → 2019-01-06 08:22 | Outpatient (CLI) | payer MEDICARE, SELFPAY ==
[2018-12-16 13:20] VITALS: BMI 26.7
--- NOTE | 2019-01-06 08:25 | US_ITS ---
STUDY: ULTRASOUND BREAST - RIGHT REASON FOR EXAM: Female, 53 years old. Ultrasound guided right breast biopsy. TECHNIQUE: Axial and longitudinal images of the RIGHT breast were performed with a high resolution ultrasound transducer. COMPARISON: Comparison is made with prior examination dated June 30, 2019. FINDINGS: RIGHT Breast: Under direct sonographic guidance, the surgeon performed 3 core biopsies of the 1.6 cm x 1.6 cm x 0.7 cm mixed echogenic nodule at the 10:00 position breast at 8 cm from the nipple. US/US Breast Biopsy 1st Lesion IMPRESSION: Ultrasound guided breast biopsy. ASSESSMENT CATEGORY: BIRADS Category 4: Suspicious - Biopsy Should Be Considered. A letter regarding these results will be sent to the patient by the facility within 30 days. Electronically Signed: Edilberto Farah MD at 14:25 EST , Service support ,
--- NOTE | 2019-01-06 09:20 | BRBX_PTH ---
PATIENT: SHIREEN EDGAR LOC: OPUS U#:[id number] AGE/SX: 60/F ROOM: RE01/06/[address]: Dr. Evita Davies MD : 1965 BED: DIS: SPEC #: [id number] RECD: 01/06/19 09:34 STATUS: DONNA CHEN #: [id number] ELINA: 01/06/19 09:[address]: Evita Davies DEPT: SURGICAL PATHOLOGY RECD BY: Darrell Gates ENTERED: 01/06/19 11:15 SP TYPE: BREAST BX OTHR DR: Dr. Daniel Stapleton MD Tissues: Right breast, NOS Procedures: Surgery Specimen Level IV HEADER OPERATION: Ultrasound-guided right breast biopsy PRE-OP DIAGNOSIS: Right breast lesion TISSUE SUBMITTED: Right breast 10 o'clock, 8 cm from nipple, breast nodule ISCHEMIC TIME: 1 minute FIXATION TIME: 10 hours MICROSCOPIC DIAGNOSIS Right breast nodule, 10 o'clock, 8 cm from nipple, ultrasound-guided core biopsy: Fragments of benign breast tissue with focal fat necrosis, acute and chronic inflammation. Negative for atypia or malignancy. LILIANE:coby 01/07/19 COMMENT Correlation with clinical, radiologic findings and appropriate follow up are necessary. Please make reference to previous specimen ([id number]) right breast at 10 o'clock, core biopsy, with diagnosis of benign breast tissue. Case has been reviewed in consultation with Dr. Griffiths who concurs with the above diagnosis. IDC:AM MICROSCOPIC DESCRIPTION Slides are reviewed. GROSS DESCRIPTION Received in fixative is one container labeled with the patient's name and designated right breast. The specimen consists of multiple elongated fragments of garcia-yellow fibroadipose tissue that in aggregate measure 1.5 x 0.3 x 0.1 cm. The entire specimen is submitted in one cassette. / LILIANE:coby 01/06/19 TC:5 CPT: 49749
--- NOTE | 2019-01-06 10:10 | OP.PCM_ITS ---
Operative Report Date of Procedure: 01/06/19 Procedure: Right ultrasound-guided core biopsy Indications: 53 year-old female with hypoechoic nodule at 10:00 in the right breast 8 centimeters from the nipple. Patient's initial biopsy of the site only showed normal breast tissue discussed with patient need for repeat biopsy. Risk benefits were discussed the patient and she elected to proceed with ultrasound guided core biopsy. Description of procedure: Patient was brought into the ultrasound room in the right breast was marked. A timeout was completed verifying correct patient, procedure, site, specially, prior to beginning procedure. The right breast was prepped and draped in usual sterile fashion and using local anesthesia was obta ined with 1% lidocaine with epi. The lesion was located with the ultrasound. Previous incision was re-incised with 11 blade to introduced the 14-gauge BARD MaxCore through the skin. Under ultrasound guidance multiple core samples were obtained using then 14-gauge BARD MaxCore and sent in formalin for pathology. Upon completion procedure hemostasis was obtained and a Steri-Strip and OpSite were placed. The patient tolerated the procedure well and was discharged from the breast imaging department good condition. complications: none
== END ==
PROVIDERS: Family Provider Family Medicine; PCP Family Medicine; Referring Provider Surgery; Visit Provider Surgery
DX: N63.10 Unspecified lump in the right breast, unspecified quadrant (principal); N64.4 Mastodynia; N64.1 Fat necrosis of breast
CPT/HCPCS: 19083; 88305

== ENCOUNTER 2019-05-04 07:52 | Emergency (ER) | payer MEDICARE, SELFPAY ==
[2018-12-16 13:20] VITALS: BMI 26.7
[2019-05-04 07:55] VITALS: BP 154/94; PULSE 90; RESP 16; TEMP 36.6; O2SAT 100; BMI 28.8
--- NOTE | 2019-05-04 08:11 | ED.VIS.BACK ---
History of Present Illness Chief Complaint: Back Informant: Patient Onset: Month(s) Injury: - - No history of injury Timing: Continuous Quality: Dull, Aching Location: Lumbar, Buttock, Right Leg - At times to the popliteal fossa Current Severity: Moderate Maximum Severity: Severe Worsened by: improves with: Movement, Ambulation, Bending. worse with: Night time pain Relieved by: Nothing Associated Symptoms: - - Only associated symptom is radiation to the buttocks and posterior thigh and at times popliteal fossa. Please read narrative Narrative: Patient is a 53-year-old woman who apparently has multiple herniated lumbar disks on MRI at outside facility. She recently had an epidural injection by Dr. Laird. She reports no improvement. She denies bowel or bladder dysfunction. She denies saddle paresthesia or anesthesia. She states her knee driss occasionally going down steps. This is been a issue for months. She denies foot drop. She prefers to sit versus standing. She denies fever, chills night sweats. She denies urologic symptoms. She denies nausea or vomiting. Prior similar symptoms: Yes Recent Illness/Hospitalization: Yes - Recent epidural injection - Past Medical History (1) Chronic back pain greater than 3 months duration Status: Chronic (2) Herniated intervertebral disc of lumbar spine Status: Acute Past Medical History - Allergies and Home Meds Allergies/Adverse Reactions: Allergies haloperidol [From Haldol] Allergy (Verified 05/04/19 07:52) Angioedema Primary Care Physician: Daniel Stapleton MD [Primary Care Provider] - Prior records reviewed: Yes Lives: Spouse/ Significant Other Smoking Status: Current every day smoker Alcohol: Rare Review of Systems General: Denies: Chills, Fever, Malaise, Sweats, Weight loss Cardiovascular: Denies: Chest pain, Palpitations Respiratory: Denies: Dyspnea, Cough, Dyspnea on exertion Gastrointestinal: Denies: Abdominal pain, Nausea, Vomiting, Diarrhea, Melena, Hematochezia Genitourinary: Denies: Dysuria, Hematuria, Frequency Musculoskeletal: Reports: Back pain, Extremity Pain. Denies: Myalgias, Arthralgias, Neck pain, Swelling, -, - Skin: Denies: Rash, Wounds Neurological: Denies: Headache, Weakness, Parasthesia, Numbness Hematologic: Denies: Easy bruising, Easy bleeding Allergy: Reports: Swelling of the mouth, Swelling of the tongue, - - Secondary to Haldol. Denies: Uticaria Physical Exam Vital Signs/Narrative: Vital Signs Temp Pulse Resp BP Pulse Ox 05/04/19 07:55 97.9 F 90 16 154/94 H 100 Inital Vital Signs reviewed: Yes General: Well nourished, Well developed Head: Normocephalic, Atraumatic Eyes: Perrl, EOMI. Negative for: Pale conjunctiva, Scleral icterus, - ENT: Moist mucous membranes, No rhinorrhea Neck: Supple, Nontender Cardiovascular: Regular rate, Regular rhythm, No murmurs, Normal S1, Normal S2 Respiratory: No distress, CTA bilaterally, Chest nontender Abdomen: Soft, Nontender, Nondistended, Normal bowel sounds, No masses. Negative for: Hepatomegaly, Splenomegaly, Mass, Pulsatile mass Rectal: Deferred Back: Normal Inspection, Nontender, Paraspinal Tenderness - Right side, Negative SLR - Right, Negative SLR - Left, - - Bowstring sign negative.. Negative for: Surgical Scar, Spinal tenderness, CVA tenderness, Positive SLR - Right, Positive SLR - Left Extremeties: Nontender, No edema Skin: Normal color, No rash, No Trauma. Negative for: Cyanosis, Diaphoresis, Jaundice Neuro: Alert, Oriented, Normal Strength, Normal Sensation, Normal DTR, Normal Reflexes - Patella and ankle reflex are 2+ and symmetric., - - Is able to perform 1 legged squat right and left side.. Negative for: Normal Gait - Slight limp with walking. She is able to walk on her heels and toes. Reflexes: Right Patellar, Right Achilles, Left Patellar, Left Achilles, - - DTR 2+ as previously documented. Negative for: Right Clonus, Right Babinski, Left Clonus, Left Babinski Psychological: Normal affect Diagnostic/Tx/Re-eval - Medical Decision Making Patient with history of herniated disc multiple levels lumbar spine. Symptoms are consistent with muscular pain. She does not have radicular pain. She has no neurovascular findings. With negative straight leg test normal neuro exam will treat with IV Zofran, Toradol and morphine and reassess. Imaging is not indicated at this time. Patient was reassessed at 0845. Pain has improved markedly. She is sitting upright smiling using her smart phone. Dr. Laird was paged. They asked if they should go to his office after being discharged in the emergency department. I informed her that I would contact him and discuss short course of opiate analgesia. I did speak with Dr. Kumar at 0195. Will discharge with prescription for 3 days supply of [place]. ED Disposition - Plan for ED Patient: Disposition: Home or Assisted Living Diagnosis: Acute exacerbation of chronic low back pain Instructions: ED Sprain Strain Lumbar, ED Neck Back Pain General Prescriptions: Hydrocodone Bitart/Apap 5-325 [[place] 5MG-325MG] 1 tablet PO Q6H PRN PRN 3 Days #10 tablet PRN Reason: Pain Referrals: Daniel Stapleton MD [Primary Care Provider] - Additional Instructions: Your prescription was electronically transmitted to [facility] pharmacy located on [facility].
[2019-05-04] MEDS: Morphine 4 MG/ML Syringe IV (08:22)
[2019-05-04] MEDS: Ondansetron 4 MG/2 ML Vial IV (08:22)
[2019-05-04] MEDS: Ketorolac 15 MG/ML Vial IV (08:23)
[2019-05-04 09:31] VITALS: BP 141/84; PULSE 81; RESP 16; O2SAT 99
== END 2019-05-04 09:32 | disposition home or self-care (01) ==
PROVIDERS: Emergency Provider Emergency Medicine; Family Provider Family Medicine; PCP Family Medicine
DX: M51.26 Other intervertebral disc displacement, lumbar region (principal); G89.29 Other chronic pain; F17.200 Nicotine dependence, unspecified, uncomplicated; Z79.899 Other long term (current) drug therapy; Z88.8 Allergy status to other drugs, medicaments and biological substances
CPT/HCPCS: 96374; 96375; 99283; A4216; J2405

== ENCOUNTER → 2019-05-17 11:58 | Outpatient (CLI) | payer MEDICARE, SELFPAY ==
[2019-05-04 07:55] VITALS: BMI 28.8
--- NOTE | 2019-05-17 12:16 | MRI_ITS ---
STUDY: MRI LUMBAR SPINE WITHOUT CONTRAST REASON FOR EXAM: Female, 53 years old. Back pain, right hip pain, right leg pain. TECHNIQUE: Standardized fat and water weighted pulse sequences were obtained in the sagittal and axial planes. COMPARISON: None FINDINGS: T12-L1: Normal endplates. Normal disc height, hydration and morphology. Normal bilateral facet joints. Normal central canal and bilateral lateral recesses. Normal bilateral intervertebral neural foramina. Normal lumbar lordosis. There is no substantial scoliosis. Normal conus medullaris that terminates at the T12/L1. L1-2: Normal endplates. Normal disc height, hydration and morphology. Normal bilateral facet joints. Normal central canal and bilateral lateral recesses. Normal bilateral intervertebral neural foramina. L2-3: Mild bilateral facet hypertrophy and moderate ligament flavum hypertrophy. Mild bilobed disc protrusion asymmetric to the left with a left foraminal protrusion produces mild spinal stenosis, mild left lateral recess stenosis, mild right neural foraminal stenosis, and moderate left neural foraminal stenosis with abutment of the exiting left L2 nerve root laterally. L3-4: Mild bilateral facet hypertrophy and moderate ligament flavum hypertrophy. Moderate broad disc protrusion produces moderate spinal stenosis with moderate bilateral lateral recess stenosis with abutment of the L4 nerve roots bilaterally and moderate bilateral neural foraminal stenosis with abutment of exiting L3 nerve roots bilaterally. L4-5: Moderate bilateral facet hypertrophy and ligament flavum hypertrophy. Moderate broad disc protrusion with an inferiorly extending right paracentral extrusion produces moderate spinal stenosis, severe right lateral recess stenosis with effacement of the right L5 nerve root and mild bilateral neural foraminal stenosis. L5-S1: Mild bilateral facet hypertrophy. Mild broad disc protrusion with a small central disc protrusion produces mild spinal stenosis with mild bilateral lateral recess stenosis and mild bilateral neural foraminal stenosis. Normal visualized sacral ala. Mild friction related edema of the posterior subcutaneous fat. MRI/Spine Lumbar (Routine) IMPRESSION: Multilevel degenerative changes, as described above. Electronically Signed: Emile Bella MD at 9:06 EDT Tel , Service support ,
[2019-05-17 16:07] LABS: Anion Gap 7 (5-15); BUN 11 mg/dL (7-18); BUN/Creat Ratio 11.1 RATIO (10-20); Calcium,Total 8.7 mg/dL (8.5-10.1); Chloride 108 mmol/L (98-107); Cholesterol 211 mg/dL (200); Creatinine, Serum 0.99 mg/dL (0.55-1.02); EST Glomerular Filtration Rate 63 mL/min (>60); Est Glom Filt Rate - Afr Amer 76 mL/min (>60); Glucose 82 mg/dL (74-106); High Density Lipoprotein 54 mg/dL; Potassium 4.2 mmol/L (3.5-5.1); Sodium Level 144 mmol/L (136-145); Thyroid Stim Hormone (TSH) 2.07 uIU/mL (0.358-3.74); Triglycerides 263 mg/dL; Very Low Density Lipoprotein 53 mg/dL (5-40)
== END ==
PROVIDERS: Family Provider Family Medicine; PCP Family Medicine; Referring Provider Anesthesiology Pain Medicine; Visit Provider Anesthesiology Pain Medicine
DX: M54.9 Dorsalgia, unspecified (principal); M79.606 Pain in leg, unspecified; E66.9 Obesity, unspecified
CPT/HCPCS: 36415; 72148; 80048; 80061; 84443

== ENCOUNTER 2019-05-26 09:01 | Outpatient (RCR) | payer MEDICARE, SELFPAY ==
--- NOTE | 2019-05-26 10:28 | HP.PTEVAL ---
Patient's Visit Information SHIREEN EDGAR is a 53 year old F referred to Physical Therapy by Daniel Stapleton MD with a diagnosis of Right Hip Pain. Date of Evaluation: 05/26/19 Physical Therapist: Leila Boyd DPT - Visit Plan Frequency: 2x /Week Duration: 4 Weeks Plan: Aquatic Therapy- 2x a week for 4 weeks- Focus on LE and core strength/stabilization. Patient plans to see Dr. Vela on Friday for hip- PT recommends strengthening in aquatic setting MISSY. - Subjective Findings: 2012 she was running on the TM- started getting nerve pain in both LE- went to [facility] had x-ray done on her hips and was told she had OA. Had another x-ray done at urgent care 2 weeks ago on the right side- she is bone on bone. Has an MRI with Dr. Kumar who reports her pain is from her back and her hip. Has an apt on Friday with an ortho for her hip (Dr. Vela) and is sending her to a spine surgeon but does not have an apt. Tomorrow she has an apt with Dr. Kumar for an injection in her hip. This episode of hip pain was about 3 months ago when she started gardening. Pain is located in her right hip- groin- low back- radiates to the front of the hip and down the back of the leg to the ankle. Reports its nerve pain- describes pain as sharp and jumping. Worst: 10/10 Agg: sitting in a certain position, standing for long periods of time, ambulation Best: 7.5/10 Eases: takes [place]. Does have Numbness on the right calf all the time. Sleep: distrubed- hard to get comfortable and wakes her up when she rolls onto the right hip. Does have knee buckling- has not had any falls. Work: does not work is disabled. Tries to be active but its hard with pain. Has not had PT for her back or hip. Has had injections in her spine for years- they have helped in the past. PMHx: depression, vertigo, hip/knee pain, occipital neuralgia Meds: antidepressant, [place], Gabapentin, meclozine. - Objective Posture:Standing: slumped to the left- picked up her right leg when possible to avoid WB. Sitting: FH, RS, Increased kyphosis-could correct with verbal cues. Observation: patient vey verbal with grunting and groining and reported pain throughout session with any movement of bilateral LE. Gait: uses straight cane in the right hand (corrected when given verbal cues)- cane was to high- correct. Severely antalgic- decreased stance on the right LE with poor heel/toe pattern. Stairs: asc/desc 8 stairs- recip with 1 handrail and cane- at end of 5 stairs patient was tearful and reported significant pain. HR/TR: able to perform with UE A and reported pain with both in bilateral hips and back. SLS: WS fully but unable to move UE from plinth- increased pain. ROM: Lumbar: Flexion: WNL with pain, Extn: decreased by 50% reports pain, SB: left: WNL with pain, SB right: decreased by 25% with pain. Hip: right: WFL- reported pain with all motions bilateral hips, Knee: WFL, Ankle: WNL. Sensation: reported increased sensation Left>right to gross touch bilaterally. Reflexes: WNL at patella. Flex: HS: moderate restriction, Gastroc: moderate restriction. Special Test: Dural signs: positive bilaterally, CHRISTINA: positive on the right. Mobility: sit to supine and supine to sit- able to do I but it was slow and reported significant pain. Rolling to the left: able reports pain and was slow. Strength: Ankle: 4+/5, Knee: 4/5, Hip: 4-/5, core: poor- did not put forth full effort reported to painful. - Goals Goal 1:: Patient will be I with HEP and progression Goal Time Frame: 4-6 Weeks Goal 2:: Patient will ambulate >300 feet with LRD with a normalized gait pattern Goal Time Frame: 4-6 Weeks Goal 3:: Patient will asc/desc 8 stairs recip with 1 HR with good techinque Goal Time Frame: 4-6 Weeks Goal 4:: Patient will report 4/10 pain scale for 1 week with ADL's, Goal Time Frame: 4-6 Weeks Goal 5:: Patient will report no radiating symptoms in right LE. Goal Time Frame: 4-6 Weeks - Rehabilitation Potential Physical Therapy Diagnosis: Patient presents with hypomobility- she demonstrates decreased painfree ROM, strength, flexibility, and muscular endurance leading to abnormal gait pattern and increased pain with ADL's. Rehabilitation Potential: Poor - Anticipated Interventions Patient/Client Instruction: Educate patient on: Plan of Care, Risk Factors, Benefits of Fitness Program For the Purpose of:: To improve performance and independence with ADL's Therapeutic Exercise to Include: Strength training, Endurance training, Balance training, Body mechanics, Postural training, Flexibilty training, Gait and locomotor training, In an aquatic setting, Dynamic Lumbar Stabilization For the Purpose of:: To improve muscle performance and motor function Thank you for the opportunity to evaluate your patient. For Medicare and Medicare HMO plans, please review the plan of care and approve it. It will need to be FAXED BACK to us at [phone] for Medicare purposes. For Medicare only, by signing this I certify the plan of care. Please let me know if there are questions or concerns regarding this plan of care. Physician Signature: Date:
--- NOTE | 2019-08-03 14:41 | HP.PT.NRP ---
HP - Discharge Summary (1) - Patient Information SHIREEN EDGAR was seen in my office for initial evaluation on 05/26/19. The following Plan of Care was established for this patient: Initial Frequency: 2x /Week Initial Duration: 4 Weeks - Anticipated Interventions Patient/Client Instruction: Educate patient on: Plan of Care, Risk Factors, Benefits of Fitness Program For the Purpose of:: To improve performance and independence with ADL's Therapeutic Exercise to Include: Strength training, Endurance training, Balance training, Body mechanics, Postural training, Flexibilty training, Gait and locomotor training, In an aquatic setting, Dynamic Lumbar Stabilization For the Purpose of:: To improve muscle performance and motor function This patient was last seen in our office . Pertinent comments regarding their Physical therapy will appear below: Patient has not attended PT in over 6 weeks and is appropriate for d/c and to return to [facility] for further evaluation as needed. At this point I will be discontinuing this patient from physical therapy. I would be happy to see this patient again in the future if found appropriate by the physician. Thank you! ARIEL TorresT
== END 2019-05-26 19:00 | disposition home or self-care (01) ==
LOC: PT 09:01
PROVIDERS: Family Provider Family Medicine; PCP Family Medicine; Referring Provider Family Medicine; Visit Provider Family Medicine
DX: M25.551 Pain in right hip (principal)
CPT/HCPCS: 97162

== ENCOUNTER → 2019-05-31 13:50 | Outpatient (CLI) | payer MEDICARE, SELFPAY ==
[2019-05-04 07:55] VITALS: BMI 28.8
--- NOTE | 2019-05-31 13:51 | RAD_ITS ---
HISTORY: RIGHT HIP PAIN. HX OF OSTEO EXAM: AP pelvis and 2 views of the right hip. Previous imaging is from September 16, 2017 Findings: Bilateral femoral acetabular osteoarthritis greater on the right than left. On the right is greater joint space narrowing, larger osteophytes, and increased sclerosis. Findings are similar to the previous study. RAD/HIP, UNI W/ Pelvis 2-3 Views IMPRESSION: Bilateral hip arthritis right greater than left a similar degree severities the previous study of September 06, 2017. at 0052 Reported and signed by: Juan Deleon MD Electronically Signed: Juan Deleon MD at 0:51 EDT Tel , Service support ,
== END ==
PROVIDERS: Family Provider Family Medicine; PCP Family Medicine; Referring Provider Orthopaedic Surgery; Visit Provider Orthopaedic Surgery
DX: M19.90 Unspecified osteoarthritis, unspecified site (principal); M25.551 Pain in right hip
CPT/HCPCS: 73502

== ENCOUNTER → 2019-09-13 13:36 | Outpatient (CLI) | payer MEDICARE, SELFPAY ==
[2019-05-31 14:08] VITALS: BMI 28.8
--- NOTE | 2019-09-13 13:39 | US_ITS ---
STUDY: ULTRASOUND BREAST - RIGHT REASON FOR EXAM: Female, 54 years old. Recent ultrasound-guided right breast biopsy. TECHNIQUE: Axial and longitudinal images of the RIGHT breast were performed with a high resolution ultrasound transducer. COMPARISON: Comparison is made with prior ultrasound of the right breast dated January 06, 2019. FINDINGS: RIGHT Breast: There is a 1.7 cm x 1.4 cm x 1.1 cm well-defined solid nodule of mixed echogenicity at the 10:00 position of the breast at 8 cm from the nipple. A tissue clip marker is seen within it from a prior ultrasound-guided biopsy. This is unchanged. IMPRESSION: Stable appearance of the nodular density at the 10:00 position of the breast at 8 cm from the nipple. A tissue clip marker is seen within it. ASSESSMENT CATEGORY: BIRADS Category 2: Benign. A letter regarding these results will be sent to the patient by the facility within 30 days. Electronically Signed: Edilberto Farah, at 16:01 EDT , Service support , STUDY: ULTRASOUND BREAST - LEFT REASON FOR EXAM: Female, 54 years old. Left breast lump. TECHNIQUE: Axial and longitudinal images of the LEFT breast were performed with a high resolution ultrasound transducer. COMPARISON: Comparison is made with prior mammogram done earlier today. FINDINGS: LEFT Breast: The lateral half of the left breast was examined by ultrasound. At the 5:00 position of the breast at 20 cm from nipple, there is a 5 mm x 4 mm x 3 mm well-defined hypoechoic nodule. A similar appearing nodule measuring 5 mm x 5 mm x 4 mm is seen at the 2:00 position of the breast at 20 cm from the nipple. These most likely represent fibroadenomas of the biopsy is recommended for further evaluation. US/Breast Limited Unilateral IMPRESSION: 2 subcentimeter hypoechoic nodules are seen at the 5:00 and 2:00 position of the breast at 20; some nipple as described. A biopsy is recommended. ASSESSMENT CATEGORY: BIRADS Category 4: Suspicious - Biopsy Should Be Considered. A letter regarding these results will be sent to the patient by the facility within 30 days. Electronically Signed: Edilberto Farah, at 16:03 EDT , Service support ,
--- NOTE | 2019-09-13 14:33 | BI_ITS ---
MAMMOGRAPHY - BILATERAL DIAGNOSTIC REASON FOR EXAM: Female, 54 years old. Two-week history of the left breast lump. Prior right breast biopsy. Area of bilateral breast reduction surgery. PERTINENT HISTORY: Non-contributory. TECHNIQUE: Digital bilateral breast dalila (3D mammographic acquisition) in the CC and MLO projections. 2-D mediolateral oblique (MLO) and craniocaudad (CC) views of both breasts were obtained. CAD: Full Field Digital Mammography with Computer Added Detection was performed. COMPARISON: Comparison is made with prior mammogram dated June 13, 2019. FINDINGS: Breast Composition: The breasts are heterogeneously dense, which may obscure small masses. Since prior study, the patient underwent an ultrasound-guided biopsy of the nodular density in the upper lateral deep portion of the left breast. Stable appearance of the small bilateral axillary lymph nodes. No other significant abnormalities are identified. There has been no significant change since the prior study. BI/DIAG MAMM W/CAD, BILAT IMPRESSION: Stable bilateral diagnostic mammogram. With the patient's history of a palpable lump in the left breast, correlation with ultrasound is recommended. ASSESSMENT CATEGORY: BIRADS Category 0: Incomplete. Need additional imaging evaluation. A letter regarding these results will be sent to the patient by the facility within 30 days. Approximately 10% of breast cancers are not detected by mammography. A normal mammogram should not delay biopsy of a clinically suspicious abnormality. Electronically Signed: Edilberto Farah, at 15:59 EDT , Service support ,
== END ==
PROVIDERS: Family Provider Family Medicine; PCP Family Medicine; Referring Provider Surgery; Visit Provider Surgery
DX: N63.20 Unspecified lump in the left breast, unspecified quadrant (principal); R92.8 Other abnormal and inconclusive findings on diagnostic imaging of breast
CPT/HCPCS: 76642; 77062; 77066; G0279

== ENCOUNTER → 2019-09-21 13:23 | Outpatient (CLI) | payer MEDICARE, SELFPAY ==
[2019-05-31 14:08] VITALS: BMI 28.8
--- NOTE | 2019-09-21 | BRBX_PTH ---
PATIENT: SHIREEN EDGAR LOC: OPUS U#:[id number] AGE/SX: 60/F ROOM: RE09/21/[address]: Dr. Evita Davies MD : 1965 BED: DIS: SPEC #: [id number] RECD: 09/21/19 15:33 STATUS: DONNA CHEN #: [id number] ELINA: 09/21/19 00:[address]: Evita Davies DEPT: SURGICAL PATHOLOGY RECD BY: Darrell Gates ENTERED: 09/22/19 08:46 SP TYPE: BREAST BX OTHR DR: Dr. Daniel Stapleton MD Tissues: A - Left breast, NOS B - Left breast, NOS Procedures: Surgery Specimen Level IV HEADER OPERATION: Ultrasound-guided left breast biopsy PRE-OP DIAGNOSIS: Fibroadenomas? TISSUE SUBMITTED: A - Left breast biopsy 2 o'clock +20, B - Left breast biopsy 4 o'clock +20 ISCHEMIC TIME: 2 minutes FIXATION TIME: 28 hours MICROSCOPIC DIAGNOSIS A. Left breast, 2 o'clock +20, ultrasound-guided core biopsy: A fragment of benign lymph node tissue. Negative for atypia or malignancy. See comment. B. Left breast, 4 o'clock +20, ultrasound-guided core biopsy: A fragment of benign lymph node tissue. Negative for atypia or malignancy. See comment. SJ:rg 09/23/19 COMMENT A & B. The specimen consists of adipose tissue and benign lymph node tissue. Breast tissue is not identified. Correlation with clinical, radiologic findings and appropriate follow up are necessary. Please make reference to previous specimen ([id number]) right breast at 10 o'clock, core biopsy with diagnosis of benign breast tissue and ([id number]) right breast nodule,10 o'clock, 8 cm from nipple, ultrasound core biopsy with diagnosis of fragments of benign breast tissue with focal fat necrosis, acute and chronic inflammation. MICROSCOPIC DESCRIPTION Slides are reviewed. GROSS DESCRIPTION A - Received in fixative is one container labeled with the patient's name and designated left breast biopsy 2 o'clock +20. The specimen consists of multiple elongated fragments of garcia-yellow fibroadipose tissue that in aggregate measure 1 x 0.2 x 0.1 cm. The entire specimen is submitted in one cassette. B - Received in fixative is one container labeled with the patient's name and designated left breast biopsy 4 o'clock +20. The specimen consists of multiple elongated fragments of garcia-yellow fibroadipose tissue that in aggregate measure 1.5 x 0.3 x 0.1 cm. The entire specimen is submitted in one cassette. / LILIANE:coby 09/22/19 TC:5 CPT: 20674 x2
--- NOTE | 2019-09-21 13:26 | US_ITS ---
ULTRASOUND GUIDED CORE BIOPSY REASON FOR EXAM: Female, 54 years old. 2 suspicious nodules in the left breast. PERTINENT HISTORY: Left breast lump. COMPARISON: Comparison is made with prior sonogram dated September 13, 2019. TECHNIQUE: (All elements of maximal sterile barrier technique followed, including US elements as applicable) Under direct sonographic guidance, the surgeon performed multiple core biopsies of the abnormality at the 5:00 position of the breast at 20 cm from nipple as well as at the 2:00 position of the breast at 20 cm from the nipple. US/US Breast Biopsy 1st Lesion IMPRESSION: Ultrasound guided core biopsy of a mass in the LEFT breast without complication. Electronically Signed: Edilberto Farah, at 15:46 EDT , Service support ,
--- NOTE | 2019-09-21 14:02 | HP.PCM_ITS ---
History of Present Illness Date of Admission: 09/21/19 The patient is a 54 year old F Presents for ultrasound-guided left breast biopsy. Patient had a repeat ultrasound of the right breast due to a previous biopsy for follow-up which was a BI-RADS 2. Patient did inform them that she had a new mass she could fill on the lateral left breast near her axilla. An ultrasound was done of this area did find 2 small nodules about 5 mm each 1 at 2:00 and one at 5:00 likely fibroadenomas but given a BI-RADS 4.Patient states that the lateral breast and axilla have been sore for about the last month she points to an area about 3:00 20 cm from the nipple however neither of these lesions are in that area and there is no noted lesion at that area on ultrasound. Past Medical History Past Medical History (Chronic Problems): Chronic Problems (Last Reviewed 05/31/19 @ 13:49 by Benita Wright) Chronic back pain greater than 3 months duration (Chronic) Medical History: Medical History (Last Reviewed 05/31/19 @ 13:49 by Benita Wright) Abnormal mammogram R92.8 Arthritis M19.90 Back problem M53.9 Depression with anxiety F41.8 Occipital neuralgia M54.81 Seizures R56.9 Allergies haloperidol [From Haldol] Allergy (Verified 05/31/19 13:55) Angioedema Home Medications: Ambulatory Orders Medication Instructions Recorded Fluoxetine HCl [Prozac] 60 mg PO DAILY 09/10/18 Gabapentin [Neurontin] 600 mg PO BID 09/10/18 Meclizine HCl [Travel Sickness] 25 mg PO PRN PRN 09/10/18 lurasidone 20 mg tablet 20 mg PO DAILY 12/16/18 Meloxicam [Mobic] 7.5 mg PO DAILY 05/04/19 Topiramate [Topamax] 25 mg PO DAILY 05/04/19 cycloBENZAPRine HCl [Flexeril] 10 mg PO TID PRN PRN 05/04/19 Surgical History: Surgical History (Last Reviewed 05/31/19 @ 13:49 by Benita Wright) History of bilateral breast reduction surgery Z98.890 History of shoulder surgery Z98.890 Smoking Status: Current every day smoker VTE Information - Inpt Only VTE Present on Admission: No Reason prophylaxis not ordered:: Treatment Not Indicated - Physical Exam Vitals/I&O's: Body Mass Index (BMI) 28.8 General: Alert, Oriented x3, Cooperative, No apparent distress HEENT: Atraumatic Abdomen: Soft, Non Tender, Non-Distended Skin: - - Breast symmetric bilaterally, no masses appreciated bilaterally, no axillary lymphadenopathy bilaterally, patient is tender in the lateral left breast about 20 cm from the nipple and in the lower axilla, no nipple discharge, bilateral fibroglandular breast tissue Assessment/Plan All Active Problems (Last Reviewed 05/31/19 @ 13:49 by Benita Wright) Herniated intervertebral disc of lumbar spine (Acute) 54-year-old female with left breast mass x2. I have discussed above with the patient. I have recommended ultrasound guided needle core breast biopsy . I have described the procedure to the patient. A marker clip will be placed to identify the location. Patient has been counseled to the risks/benefits of the procedure. I have explained the risks of the surgery, including but not limited to: infection, bleeding, injury to any blood vessels/nerves, scar tissue, missing the lesion, further surgery, etc. - the patient understands and agrees to proceed. I have answered all of the patient's questions to her satisfaction and she has no further questions. Evita Davies M.D. Pager: [phone] [facility] [address] [place] [address], [address] [place] [address] Office: [phone]
--- NOTE | 2019-09-21 14:43 | OP.PCM_ITS ---
Report of Operation Date of Procedure: 09/21/19 Pre-Operative Diagnosis: Left breast nodules likely fibroadenomasAt 2:00 20 cm from the nipple and 4:00 20 cm from the nipple Post-Operative Diagnosis: Same Surgery/Procedure Performed:: Ultrasound-guided left breast biopsy x2 Type of Anesthesia:: Local Specimen's removed: 1. 2:00 20 cm FTN left breast. 2. 4:00 20 cm FTN left breast Estimated Blood Loss (mL): Minimal Description of Procedure: Reviewed the ultrasound and mammography with patient [and her ] and discussed the need for biopsy. Reviewed the procedure of biopsy with the mammotome vacuum assisted device. A marker clip will be placed to identify the location. Patient has been counseled to the risks/benefits of the procedure. I have explained the risks of the surgery, including but not limited to: infection, bleeding, injury to any blood vessels/nerves, scar tissue, missing the lesion, further surgery, etc. - the patient understands and agrees to proceed. I have answered all of the patient's questions to her satisfaction and she has no further questions. Signed consent is completed. Indications: 54 year-old female with Hypoechoic nodules at 2:00 and 4:00 in the Left breast 20 centimeters from the nipple. Risk benefits were discussed the patient and she elected to proceed with ultrasound guided core biopsy with clip placement Description of procedure: Patient was brought into the ultrasound room in the Left breast was marked. A timeout was completed verifying correct patient, procedure, site, specially, prior to beginning procedure. The left breast was prepped and draped in usual sterile fashion and using local anesthesia was obtained with 1% lidocaine with epi. Both biopsies of 2:00 and 4:00 were done similarly as follows. The lesion was located with the ultrasound. Small incision was made with 11 blade to introduced the mammotome through the skin. Under ultrasound guidance multiple core samples were obtained using then 14- gauge BARD MaxCore and sent in formalin for pathology. The Bard ultraclip (Ribbon was used for the 2:00 nodule and the coil was used for the 4:00 nodule) was then deployed into the biopsy cavity under ultrasound guidance and a picture was taken. Upon completion procedure hemostasis was obtained and a Steri-Strip and OpSite were placed. Patient was then taken to the mammography suite for clip verification. The clip was verified. The patient tolerated the procedure well and was discharged from the breast imaging department good condition. complications: none - Complications none
== END ==
PROVIDERS: Family Provider Family Medicine; PCP Family Medicine; Referring Provider Surgery; Visit Provider Surgery
DX: N63.20 Unspecified lump in the left breast, unspecified quadrant (principal)
CPT/HCPCS: 19083; 19084; 88305

== ENCOUNTER → 2019-12-29 09:01 | Outpatient (CLI) | payer MEDICARE, SELFPAY ==
[2019-05-31 14:08] VITALS: BMI 28.8
--- NOTE | 2019-12-29 09:07 | MRI_ITS ---
STUDY: MRI BRAIN WITHOUT CONTRAST REASON FOR EXAM: Female, 54 years old patient with extremity weakness, bilateral arm numbness, right leg numbness, and skull pain. TECHNIQUE: Standardized multiplanar fat and water weighted pulse sequences were obtained. COMPARISON: CT of the head dated September 10, 2018. FINDINGS: Normal size of the ventricles and extra-axial spaces for the patient''s age. Normal white matter tracts of the supratentorial brain. There is no evidence for recent intracranial ischemia or other cause of cytotoxic edema on diffusion weighted imaging (DWI). Normal T2* images of the brain without demonstrated susceptibility artifact. There is no demonstrated hemosiderin stain. Normal bilateral basal ganglia. Normal thalami. There is no extra-axial fluid accumulation. Normal flow voids within the major intracranial circulation suggesting patency by spin echo criteria. Normal sella turcica, pituitary gland, infundibular stalk, optic chiasm and hypothalamus. Normal tectal plate and pineal gland. Normal midbrain, trevin and medulla. Normal cerebellum. Normal basal cisterns. There is mild chronic otomastoiditis of the bilateral temporal bones. Normal bilateral internal auditory canals. No demonstrated orbital abnormality, within the constraints of a routine brain study. Normal visualized paranasal sinuses. Normal calvarium and skull base. Normal visualized soft tissue structures. Normal visualized upper cervical spine. MRI/Brain without Contrast IMPRESSION: Normal unenhanced MRI of the brain. Electronically Signed: Kristan Burk MD at 11:55 EST , Service support ,
== END ==
PROVIDERS: PCP Family Medicine; Referring Provider Family Medicine; Visit Provider Family Medicine
DX: R29.898 Other symptoms and signs involving the musculoskeletal system (principal)
CPT/HCPCS: 70551

== ENCOUNTER → 2020-01-21 11:22 | Outpatient (CLI) | payer MEDICARE, SELFPAY ==
[2019-05-31 14:08] VITALS: BMI 28.8
[2020-01-21 14:35] LABS: Anion Gap 4 (5-15); BUN 7 mg/dL (7-18); BUN/Creat Ratio 6.4 RATIO (10-20); Calcium,Total 8.8 mg/dL (8.5-10.1); Chloride 111 mmol/L (98-107); Cholesterol 217 mg/dL (200); Creatinine, Serum 1.09 mg/dL (0.55-1.02); EST Glomerular Filtration Rate 56 mL/min (>60); Est Glom Filt Rate - Afr Amer 68 mL/min (>60); Glucose 80 mg/dL (74-106); High Density Lipoprotein 48 mg/dL; Potassium 4.1 mmol/L (3.5-5.1); Sodium Level 140 mmol/L (136-145); Triglycerides 181 mg/dL; Very Low Density Lipoprotein 36 mg/dL (5-40)
== END ==
PROVIDERS: PCP Family Medicine; Referring Provider Family Medicine; Visit Provider Family Medicine
DX: Z00.00 Encounter for general adult medical examination without abnormal findings (principal); E66.9 Obesity, unspecified
CPT/HCPCS: 36415; 80048; 80061

== ENCOUNTER → 2020-02-25 12:38 | Outpatient (CLI) | payer MEDICARE, SELFPAY ==
[2019-05-31 14:08] VITALS: BMI 28.8
[2020-02-25 15:51] LABS: Absolute Lymphocyte Count 2.55 X10^3/uL (0.83-4.51); Absolute Neutrophil Count 4.4 X10^3/uL (2.0-7.7); Basophil# 0.02 X10^3/uL; Basophil% 0.3 % (0-1); Eosinophil# 0.27 X10^3/uL; Eosinophils% 3.5 % (0-5); Hemoglobin 12.8 g/dL (12.0-15.0); Lymphocyte # 2.55 X10^3/ul (4.0); Mean Corp Hgb Conc 31.2 g/dL (32-36); Mean Corpuscular Hgb 29.3 pg (27.0-32.0); Mean Corpuscular Volume 93.8 fL (81-99); Mean Platelet Vol. 11.5 fl (6.2-12.0); Monocyte# 0.44 X10^3/uL; Monocyte% 5.7 % (0-10); NRBC Flagged by Analyzer 0 % (0-5); Neutrophil # 4.42 X10^3/uL (2.7-7.7); Neutrophil % 57.2 % (47-70); Platelet Count 333 K/mm3 (150-450); RBC Distribution Width CV 16.2 % (11.6-14.6); RBC Distribution Width SD 55.8 fl (35.1-43.9); Red Blood Count 4.37 M/mm3 (4.2-5.4); White Blood Count 7.7 K/mm3 (4.4-11.0)
[2020-02-25 15:55] LABS: AST(SGOT) 17 U/L (15-37); Alanine Aminotransfer ALT/SGPT 32 U/L (13-56); Albumin, Serum 3.5 g/dL (3.2-5.0); Alkaline Phosphatase 91 U/L (45-117); Anion Gap 7 (5-15); BUN 8 mg/dL (7-18); BUN/Creat Ratio 8.1 RATIO (10-20); Calcium,Total 8.5 mg/dL (8.5-10.1); Chloride 109 mmol/L (98-107); Creatinine, Serum 0.99 mg/dL (0.55-1.02); EST Glomerular Filtration Rate 62 mL/min (>60); Est Glom Filt Rate - Afr Amer 76 mL/min (>60); Globulin 3.5 g/dL (2.2-4.2); Glucose 100 mg/dL (74-106); Potassium 3.3 mmol/L (3.5-5.1); Sodium Level 141 mmol/L (136-145)
== END ==
PROVIDERS: PCP Family Medicine; Visit Provider Family Medicine
DX: K52.9 Noninfective gastroenteritis and colitis, unspecified (principal)
CPT/HCPCS: 36415; 80053; 85025

== ENCOUNTER → 2020-03-31 09:59 | Outpatient (CLI) | payer MEDICARE, SELFPAY ==
[2019-05-31 14:08] VITALS: BMI 28.8
[2020-03-31 13:03] LABS: Vitamin D,25 Hydroxy 27.8 ng/mL
[2020-03-31 13:08] LABS: Anion Gap 5 (5-15); BUN 7 mg/dL (7-18); BUN/Creat Ratio 6.9 RATIO (10-20); Calcium,Total 8.8 mg/dL (8.5-10.1); Chloride 111 mmol/L (98-107); Cholesterol 174 mg/dL (200); Creatinine, Serum 1.02 mg/dL (0.55-1.02); EST Glomerular Filtration Rate 60 mL/min (>60); Est Glom Filt Rate - Afr Amer 73 mL/min (>60); Glucose 64 mg/dL (74-106); High Density Lipoprotein 45 mg/dL; Sodium Level 140 mmol/L (136-145); Thyroid Stim Hormone (TSH) 2.32 uIU/mL (0.358-3.74); Triglycerides 172 mg/dL; Very Low Density Lipoprotein 34 mg/dL (5-40)
== END ==
PROVIDERS: PCP Family Medicine; Visit Provider Family Medicine
DX: Z00.00 Encounter for general adult medical examination without abnormal findings (principal); E55.9 Vitamin D deficiency, unspecified; E66.9 Obesity, unspecified
CPT/HCPCS: 36415; 80048; 80061; 82306; 84443

== ENCOUNTER → 2020-07-17 15:19 | Outpatient (CLI) | payer MEDICARE, SELFPAY ==
[2019-05-31 14:08] VITALS: BMI 28.8
--- NOTE | 2020-07-17 15:23 | RAD_ITS ---
STUDY: X-RAY - ABDOMEN/PELVIS REASON FOR EXAM: Female, 54 years old. Abdominal pain from on/off constipation for several months -- also some acid reflux TECHNIQUE: 4 AP views COMPARISON: None. FINDINGS: Normal visualized lung bases. There is a moderate amount of colonic fecal material. There is no demonstrated free abdominal air. The visualized liver, spleen and kidneys are grossly normal in size and morphology. Normal soft tissue structures. Significant arthritic changes in the right hip with subchondral changes in the acetabulum and femoral head. RAD/Abd Inc Decub and/or Erect IMPRESSION: No acute findings, retained stool Significant right hip arthrosis Electronically Signed: Corbin Connell MD at 10:47 EDT , Service support ,
== END ==
PROVIDERS: PCP Family Medicine; Referring Provider Family Medicine; Visit Provider Family Medicine
DX: R10.9 Unspecified abdominal pain (principal)
CPT/HCPCS: 74019

== ENCOUNTER → 2020-08-18 14:25 | Outpatient (CLI) | payer MEDICARE, SELFPAY ==
[2019-05-31 14:08] VITALS: BMI 28.8
[2020-08-18 17:50] LABS: Absolute Lymphocyte Count 2.01 X10^3/uL (0.83-4.51); Absolute Neutrophil Count 3.6 X10^3/uL (2.0-7.7); Basophil# 0.01 X10^3/uL; Basophil% 0.2 % (0-1); Eosinophil# 0.14 X10^3/uL; Eosinophils% 2.3 % (0-5); Hematocrit 41.3 % (37-47); Hemoglobin 13.3 g/dL (12.0-15.0); Lymphocyte # 2.01 X10^3/ul (4.0); Lymphocyte % 32.7 % (19-41); Mean Corp Hgb Conc 32.2 g/dL (32-36); Mean Corpuscular Hgb 29.9 pg (27.0-32.0); Mean Corpuscular Volume 92.8 fL (81-99); Mean Platelet Vol. 10.9 fl (6.2-12.0); Monocyte% 6.5 % (0-10); NRBC Flagged by Analyzer 0 % (0-5); Neutrophil # 3.56 X10^3/uL (2.7-7.7); Platelet Count 319 K/mm3 (150-450); RBC Distribution Width CV 14.7 % (11.6-14.6); RBC Distribution Width SD 50.8 fl (35.1-43.9); Red Blood Count 4.45 M/mm3 (4.2-5.4); White Blood Count 6.1 K/mm3 (4.4-11.0)
[2020-08-18 17:59] LABS: Anion Gap 7 (5-15); BUN 8 mg/dL (7-18); BUN/Creat Ratio 7.3 RATIO (10-20); Chloride 110 mmol/L (98-107); EST Glomerular Filtration Rate 55 mL/min (>60); Est Glom Filt Rate - Afr Amer 67 mL/min (>60); Glucose 89 mg/dL (74-106); Potassium 3.6 mmol/L (3.5-5.1); Sodium Level 140 mmol/L (136-145)
== END ==
PROVIDERS: PCP Family Medicine; Referring Provider Family Medicine; Visit Provider Family Medicine
DX: E66.9 Obesity, unspecified (principal)
CPT/HCPCS: 36415; 80048; 85025

== ENCOUNTER → 2020-12-05 15:38 | Outpatient (CLI) | payer MEDICARE, SELFPAY ==
[2019-05-31 14:08] VITALS: BMI 28.8
--- NOTE | 2020-12-05 15:43 | RAD_ITS ---
STUDY: X-RAY - LUMBAR SPINE REASON FOR EXAM: Female, 55 years old. low back pain, back spasm, Hx back surgery in the past TECHNIQUE: 2 view(s) of the lumbar spine were obtained. COMPARISON: None FINDINGS: Normal lumbar lordosis. Mild dextroscoliosis. There is a normal alignment of the vertebrae. There is multilevel endplate spondylosis of the lumbar vertebrae. There is multi-level degenerative disc disease with multi-level disc space narrowing. The soft tissue structures are unremarkable. RAD/Lumbar Spine 2 or 3 Views IMPRESSION: Mild dextroscoliosis and moderate diffuse degenerative disc disease. Electronically Signed: Emile Bella MD at 16:10 EST Tel , Service support ,
== END ==
PROVIDERS: PCP Family Medicine; Visit Provider Anesthesiology Pain Medicine
DX: M54.9 Dorsalgia, unspecified (principal)
CPT/HCPCS: 72100

== ENCOUNTER → 2020-12-26 17:14 | Outpatient (CLI) | payer MEDICARE, SELFPAY ==
[2019-05-31 14:08] VITALS: BMI 28.8
--- NOTE | 2020-12-26 18:15 | MRI_ITS ---
HISTORY: Low back pain extending into right groin. Prior lumbar surgery in 2019. Comparison x-ray is from December 05, 2020. Previous MRI of the lumbar spine is from May 17, 2019. Additional lumbar spine x-rays are from September 06, 2017. Technique: Sagittal T1-T2 and STIR, axial T1 and T2-weighted images were obtained through the lumbar spine. 128 images. The axial images extend from L2 into the sacrum and do not traverse through the T12-L1 or L1-L2 interspaces. Between May 2019, and December 05, 2020, surgery has been performed at the L3, L4, and L5 levels. Findings: Bony alignment is normal. Vertebral body height is normal. Marrow signal within the vertebral bodies is normal. There is increased T2-weighted signal consistent with edema and/or scarring within the soft tissues at the operative levels posterior to the L3-L4, L4, L5, and S1-S2 levels. The surgical changes, and the increased T2-weighted signal within the posterior soft tissues is new since the May study. The conus medullaris remains posterior to T12. At the L1-L2 level facet arthropathy ligamental thickening are mild. No disc disease is present. At the L2-L3 level there is loss of disc height, disc desiccation, facet arthropathy, ligamentum thickening, and left lateral disc protrusion. This is identical in appearance to the previous study. The left lateral disc protrusion does extend medially to the lateral recess, and may affect the left L3 nerve in the lateral recess. This is similar to the previous study. At the L3-L4 level facet arthropathy is mild. Ligamentum flavum I believe has been resected. Minimal disc bulge. The spinous processes been resected. At the L4-L5 level facet arthropathy is less. Ligamentum flavum has been resected. A central disc protrusion is present. The protruded disc extends down inferiorly behind the L5 vertebral body. The disc measures 15 x 14 x 7 mm, and may be an extruded disc fragment. It is not any larger than on the preoperative study. At the L5-S1 level there is fairly good preservation of disc height and disc signal. The spinal canal is widely patent. Some facet arthropathy. MRI/Spine Lumbar (Routine) IMPRESSION: Postop surgical changes new since May 17, 2019 at the L3, L4, and L5 levels. Laminectomy at L4 and L5. Disc disc bulge at L3-L4. Left lateral disc protrusion at L2-L3 is unchanged. Disc protrusion at the L4-L5 level. The protruded disc extends down posteriorly to the L5 vertebral body, and measures 15 x 14 x 7 mm with in the spinal canal. It is not increased in size since the previous study of May 17, 2019. At the L2-L3 level there is a left lateral disc protrusion. This may affect the left L3 nerve in the lateral recess. Due to the laminectomies and resection of posterior elements, spinal canal is patent posterior to the disc disease at the L3-L4 and L4-L5 levels. There is scarring within the posterior paraspinal soft tissues, but without abscesses. at 2343 Reported and signed by: Juan Deleon MD Electronically Signed: Juan Deleon MD at 23:41 EST Tel , Service support ,
== END ==
PROVIDERS: PCP Family Medicine; Referring Provider Anesthesiology Pain Medicine; Visit Provider Anesthesiology Pain Medicine
DX: M54.2 Cervicalgia (principal); M54.5 Low back pain; M54.16 Radiculopathy, lumbar region
CPT/HCPCS: 72148

== ENCOUNTER 2021-01-14 12:29 | Emergency (ER) | payer MEDICARE, SELFPAY ==
[2019-05-31 14:08] VITALS: BMI 28.8
[2021-01-14 12:30] VITALS: BP 130/83; PULSE 81; RESP 18; TEMP 35.7; O2SAT 98; BMI 30.1
--- NOTE | 2021-01-14 13:00 | CT_ITS ---
STUDY: CT ABDOMEN AND PELVIS WITHOUT CONTRAST REASON FOR EXAM: Female, 55 years old. SEVERE RLQ PAIN AND RT ABD WALL PAIN, ?HERNIA, SUDDEN ONSET OF PAIN, BILAT BREAST REDUCTION RADIATION DOSAGE (If Supplied By Facility): CTDIvol = ( 14.56 ) mGy, DLP = ( 705.82 ) mGycm TECHNIQUE: Transaxial images were obtained from the dome of the diaphragm to the symphysis pubis without oral contrast, and without intravenous contrast. Sagittal and coronal images were reconstructed. Individualized dose optimization techniques were used for this CT. COMPARISON: None. FINDINGS: The visualized lung bases are unremarkable. The visualized portions of the heart are within normal limits. Normal liver. Normal gallbladder and extrahepatic biliary system. Normal spleen. Normal pancreas. Normal bilateral adrenal glands. Normal right kidney. Normal left kidney. Normal visualized stomach. Normal small intestine. Normal colon. The appendix is visualized and appears normal. Normal abdominal aorta. Normal inferior vena cava. Normal retroperitoneum. Normal urinary bladder. Normal abdominal wall. Mild dextroscoliosis of the lumbar spine with degenerative disc disease. CT/Abdomen/Pelvis without Cont IMPRESSION: Normal unenhanced CT of the abdomen and pelvis. Electronically Signed: Emile Bella MD at 14:11 EST Tel , Service support ,
[2021-01-14] MEDS: morphine 8 MG/ML Syringe IM (13:17)
[2021-01-14] MEDS: Ondansetron ODT 4 MG Tablet PO (13:17)
--- NOTE | 2021-01-14 14:01 | ED.VISSUMM ---
- ER Visit Summary Date of Service: 01/14/21 Chief Complaint: Abdominal pain History of Present Illness: The patient is a [address] Stephenson. She reports approximate hour ago she was putting her stockings. She bent her right leg and had the abrupt onset of a sharp stabbing pain in the right lower abdomen. States pain was 10 of 10 at worst and is 3 out of 10 currently. She also describes this pain is burning. Nothing makes this better or worse. She has any nausea, vomiting, or diarrhea. Her last bowel was today. She had normal hematochezia. No dysuria or frequency. Patient reports that she was not in any pain prior to the onset of this. Physical Examination: Vitals: Stable. Afebrile. General: Well-nourished and well-developed. Head: Normocephalic atraumatic. Neck: Supple, no lymphadenopathy. No JVD. Nontender. Cardiovascular: Regular rate and rhythm. No murmurs. Respiratory: No respiratory distress. Clear to auscultation bilaterally. Abdominal: Soft, mild tenderness palpation over the right rectus abdominis muscle, nondistended, normal bowel sounds. No guarding, rebound, or peritoneal signs. No appreciable ventral hernia. Back: Nontender. Extremities: Nontender, no edema. Skin: Normal color, no rash. Neurologic: Alert and oriented ?3. Cranial nerves II through XII are intact. Normal strength and sensation. Psych: Normal affect. Test Results: Clinical Impression(s) from Imaging Studies Abdomen/Pelvis CT 01/14/21 13:00 IMPRESSION: Normal unenhanced CT of the abdomen and pelvis. Electronically Signed: Emile Bella MD at 14:11 EST Tel , Service support , Emergency Department Course and Treatment: Patient was given a shot of morphine IM and Zofran p.o. She is resting more comfortably. Treatment Plan: Patient will be discharged with symptomatic care. Instructed use Tylenol and/or ibuprofen as needed for pain. Follow-up with her primary care physician in 3 to 5 days if not improving. Return to the emergency department for any worsening symptoms. Disposition: To home in improved and stable condition. Impression: 1. Abdominal pain, uncertain cause. This note was generated with [employer] dictation software. It may contain incorrect words, spelling, and punctuation that were not noted in review of the chart prior to signing ED Disposition - Plan for ED Patient: Instructions: ED Abdominal Pain Unkn Cause Fem Referrals: Daniel Stapleton MD [Primary Care Provider] - 3-5 Days if not improving
== END 2021-01-14 14:57 | disposition home or self-care (01) ==
LOC: ED 13:23
PROVIDERS: Emergency Provider Emergency Medicine; PCP Family Medicine
DX: R10.31 Right lower quadrant pain (principal); F32.9 Major depressive disorder, single episode, unspecified; Z72.0 Tobacco use; Z79.899 Other long term (current) drug therapy
CPT/HCPCS: 74176; 96372; 99282

== ENCOUNTER → 2021-02-01 | Outpatient (CLI) | payer MEDICARE, SELFPAY ==
[2021-01-14 12:30] VITALS: BMI 30.1
== END | disposition home or self-care (01) ==
LOC: LABSPEC 15:25
PROVIDERS: PCP Family Medicine; Referring Provider Family Medicine; Visit Provider Family Medicine
DX: Z20.822 Contact with and (suspected) exposure to COVID-19 (principal)
CPT/HCPCS: 87635; U0005; U0003

== ENCOUNTER → 2021-02-09 10:41 | Outpatient (CLI) | payer MEDICARE, SELFPAY ==
[2021-01-14 12:30] VITALS: BMI 30.1
--- NOTE | 2021-02-09 10:46 | VDLE_ITS ---
Reason For Study: Edema RIGHT LEFT GSV is normal. GSV is normal. CFV is compressible, spontaneous, phasic, CFV is compressible, spontaneous, phasic, competent and demonstrates normal competent, and demonstrates normal augmentation. augmentation. FV is compressible, spontaneous, phasic, FV is compressible, spontaneous, phasic, competent and demonstrates normal competent and demonstrates normal augmentation. augmentation. POP V is compressible, spontaneous, phasic, POP V is compressible, spontaneous, phasic, competent and demonstrates normal competent and demonstrates normal augmentation. augmentation. T/P Trunk is compressible. T/P Trunk is compressible. PTV is compressible. PTV is compressible. RT PerV is compressible. LT PerV is compressible. Procedure Exam performed in department. A preliminary report was called and/or faxed to Vidhya Mcmahon NP. Interpretation Summary Deep veins of the lower extremities are bilaterally patent and compressible segmentally. There is no evidence of deep vein thrombosis on either side. Valvular competence appears intact within the proximal deep venous systems bilaterally. The great saphenous veins appear bilaterally patent and compressible segmentally. Ordering Physician: Vidhya Mcmahon Referring Physician: Daniel Stapleton Performed By: Abbie Rodriguez, IOANA, RVT
== END ==
PROVIDERS: PCP Family Medicine; Referring Provider Nurse Practitioner Acute Care; Visit Provider Nurse Practitioner Acute Care
DX: R60.0 Localized edema (principal)
CPT/HCPCS: 93970

== ENCOUNTER → 2021-04-02 15:06 | Outpatient (CLI) | payer MEDICARE, SELFPAY ==
[2021-04-02 18:00] LABS: Anion Gap 7 (5-15); BUN 11 mg/dL (7-18); BUN/Creat Ratio 9.4 RATIO (10-20); Chloride 107 mmol/L (98-107); Creatinine, Serum 1.17 mg/dL (0.55-1.02); EST Glomerular Filtration Rate 51 mL/min (>60); Est Glom Filt Rate - Afr Amer 62 mL/min (>60); Glucose 142 mg/dL (74-106); Potassium 3.5 mmol/L (3.5-5.1); Sodium Level 140 mmol/L (136-145)
== END ==
PROVIDERS: PCP Family Medicine; Visit Provider Family Medicine
DX: R63.1 Polydipsia (principal)
CPT/HCPCS: 36415; 80048

== ENCOUNTER → 2021-07-19 10:32 | Outpatient (CLI) | payer MEDICARE, SELFPAY ==
[2021-07-19 12:13] LABS: Absolute Lymphocyte Count 2.19 X10^3/uL (0.83-4.51); Absolute Neutrophil Count 3.4 X10^3/uL (2.0-7.7); Basophil# 0.02 X10^3/uL; Basophil% 0.3 % (0-1); Eosinophil# 0.46 X10^3/uL; Lymphocyte # 2.19 X10^3/ul (0.83-4.51); Lymphocyte % 33.2 % (19-41); Mean Corp Hgb Conc 32.5 g/dL (32-36); Mean Corpuscular Hgb 30.2 pg (27.0-32.0); Mean Platelet Vol. 10.9 fl (6.2-12.0); Monocyte# 0.47 X10^3/uL; Monocyte% 7.1 % (0-10); NRBC Flagged by Analyzer 0 % (0-5); Neutrophil # 3.44 X10^3/uL (2.7-7.7); Neutrophil % 52.2 % (47-70); Platelet Count 366 K/mm3 (150-450); RBC Distribution Width CV 15.7 % (11.6-14.6); RBC Distribution Width SD 53.4 fl (35.1-43.9); White Blood Count 6.6 K/mm3 (4.4-11.0)
[2021-07-19 12:34] LABS: ALB/GLOB Ratio 0.9 RATIO (0.9-2.4); AST(SGOT) 35 U/L (15-37); Alanine Aminotransfer ALT/SGPT 60 U/L (13-56); Albumin, Serum 3.4 g/dL (3.2-5.0); Alkaline Phosphatase 117 U/L (45-117); Anion Gap 7 (5-15); BUN 9 mg/dL (7-18); BUN/Creat Ratio 7.6 RATIO (10-20); Calcium,Total 8.9 mg/dL (8.5-10.1); Chloride 111 mmol/L (98-107); Creatinine, Serum 1.18 mg/dL (0.55-1.02); EST Glomerular Filtration Rate 51 mL/min (>60); Est Glom Filt Rate - Afr Amer 61 mL/min (>60); Globulin 3.8 g/dL (2.2-4.2); Glucose 109 mg/dL (74-106); Potassium 3.4 mmol/L (3.5-5.1); Protein, Total 7.2 g/dL (6.4-8.2); Sodium Level 140 mmol/L (136-145); Thyroid Stim Hormone (TSH) 2.42 uIU/mL (0.358-3.74)
== END ==
PROVIDERS: PCP Family Medicine; Referring Provider Family Medicine; Visit Provider Family Medicine
DX: K92.0 Hematemesis (principal); K59.00 Constipation, unspecified
CPT/HCPCS: 36415; 80053; 84443; 85025

== ENCOUNTER → 2021-07-31 14:15 | Outpatient (CLI) | payer MEDICARE, SELFPAY ==
--- NOTE | 2021-07-31 14:20 | MRI_ITS ---
STUDY: MRI CERVICAL SPINE WITHOUT CONTRAST REASON FOR EXAM: Female, 55 years old. DDD, cervical and scapula pain TECHNIQUE: Standardized fat and water weighted pulse sequences were obtained in the sagittal and axial planes. COMPARISON: 03/26/2018 FINDINGS: Normal foramen magnum and brainstem-cervical cord junction. Normal craniovertebral junction. Normal anterior atlantoaxial articulation. Normal odontoid process. Decreased cervical lordosis. Normal vertebral bodies and posterior osseous elements. C2-3: Normal endplates. Normal disc height, signal and morphology. Normal central canal and intervertebral neural foramina. C3-4: Normal endplates. Narrowed disc height, signal and mild bulging disc osteophyte complex with prominent right posterolateral/foraminal disc/osteophyte protrusion. Normal central canal. Severe right neuroforaminal stenosis and moderate to severe narrowing on the left. C4-5: Narrowed disc space with endplate spurring and moderate bulging disc osteophyte complex with right lateral/foraminal disc/osteophyte protrusion. There is narrowing of the central canal and mild cord compression. There is severe right neural foraminal stenosis and moderate narrowing on the left secondary to disc and bony hypertrophy C5-6: Narrowed disc space and mild bulging disc osteophyte complex with posterolateral/foraminal disc/osteophyte protrusion. There is mild narrowing the central canal and impingement upon the cord to the right of midline. There is moderate right neuroforaminal stenosis and severe left neuroforaminal stenosis secondary to disc and bony hypertrophy. C6-7: Normal endplates. Normal disc height, signal and moderate bulging of the disc.. Narrowing the central canal and mild cord compression. Moderate right neuroforaminal stenosis and mild narrowing on the left. C7-T1: Normal endplates. Normal disc height, signal and small right paracentral disc protrusion. Mild narrowing of the central canal and impingement upon ventral surface of the cord. Normal Intervertebral neural foramina. Normal cervical cord. Normal visualized soft tissue structures. MRI/Spine Cervical (Routine) IMPRESSION: No evidence for acute fracture or other significant bony pathology. Severe spondylosis. Multilevel spinal stenosis secondary to disc and bony hypertrophy. Findings as above Electronically Signed: Fredy Starkey MD at 16:40 EDT , Service support ,
--- NOTE | 2021-07-31 14:22 | RAD_ITS ---
INDICATION: FALL EXAMINATION/TECHNIQUE: X-RAY - XR Spine Thoracic 3 Views COMPARISON: None. FINDINGS: Mild levoscoliosis of the thoracolumbar spine is visualized. No evidence of spondylolisthesis is seen. The thoracic vertebral bodies demonstrate unremarkable contours with no evidence of compression deformity. Multilevel degenerative endplate changes visualized with anterior osteophyte formation. Decreased intervertebral disc height with degenerative changes in the intervertebral disc space suggestive of multiple levels. No evidence of lytic or sclerotic bone lesion is seen. Limited evaluation of the cardiomediastinal silhouette, paravertebral soft tissues and adjacent lung callahan is unremarkable. RAD/Thoracic Spine 3 Views IMPRESSION: Degenerative changes, no acute osseous abnormality of the thoracic spine. Electronically Signed: Schuyler Lock MD at 15:50 EDT Tel , Service support ,
== END ==
PROVIDERS: PCP Family Medicine; Referring Provider Anesthesiology Pain Medicine; Visit Provider Anesthesiology Pain Medicine
DX: M54.12 Radiculopathy, cervical region (principal)
CPT/HCPCS: 72072; 72141

== ENCOUNTER 2021-11-18 03:52 | Emergency (ER) | payer MEDICARE, SELFPAY ==
[2021-11-18 03:52] VITALS: BP 138/66; PULSE 91; RESP 16; TEMP 36.6; O2SAT 97; BMI 35.3
--- NOTE | 2021-11-18 04:14 | EKG12_ITS ---
Test Reason : CP Blood Pressure : / mmHG Vent. Rate : 091 BPM Atrial Rate : 091 BPM P-R Int : 136 ms QRS Dur : 074 ms QT Int : 402 ms P-R-T Axes : 064 042 060 degrees QTc Int : 494 ms Normal sinus rhythm Prolonged QT Abnormal ECG Confirmed by MALACHI SEN, JEAN-PAUL ([id number]), editor managing newspaper STEVEN JARRETT ([id number]) on 11/19/2021 9:42:03 AM Referred By: MARLIN Confirmed By:JEAN-PAUL LY MD
--- NOTE | 2021-11-18 04:20 | RAD_ITS ---
STUDY: X-RAY CHEST REASON FOR EXAM: Female, 56 years old. Chest pain TECHNIQUE: Single AP portable view of the chest. COMPARISON: None. FINDINGS: There is a hazy appearance of the right lower lobe. There is no demonstrated pleural abnormality. Normal size heart. Normal mediastinum and josé miguel. Normal visualized pulmonary arteries. Normal visualized aortic arch and descending thoracic aorta. There are diffuse degenerative changes of the visualized thoracic spine. Normal visualized ribs, clavicles, and shoulders. There is no demonstrated abnormality of the visualized soft tissue structures of the upper abdomen. RAD/Chest 1 View (Portable) IMPRESSION: Right lower lobe atelectasis or possible subtle infiltrate/pneumonia. Electronically Signed: Clementine Ayala MD at 4:43 EST Tel , Service support ,
--- NOTE | 2021-11-18 04:23 | EDS_ITS ---
HPI History of Present Illness Chief Complaint: Chest Pain Informant: patient and spouse/S.O. Narrative Narrative: Patient presents with chest pain and tightness. She has been having episodes of this for about 3 or 4 months. It occurs in the left chest area. It does not radiate but today she did get a slight headache at the same time. She states the headache was mild. She does not feel short of breath but she states she breathes heavily when this happens. She does not get nauseated. She vomited once earlier today but that is the only time this is happened and she was not having pain at the time. She has never gotten diaphoretic. She has no history recent travel surgery immobilization personal or family history of DVT or PE. The symptoms are episodic. They usually last for about 5 minutes or so. They most commonly occur at night. They only have occurred during the day once or twice. Patient is not diabetic, high cholesterol, or hypertensive by history. She is a smoker and was counseled to quit. There is a questionable family history of heart disease. She states her mother might of had stents about 30 years ago. I think this is unlikely. But she may have had angioplasty or may not have been quite that long. Nothing specifically brings the symptoms on. They tend to occur at night though. Activity does not seem to initiate them. Nothing makes them better other than aspirin and time. [facility] Medical History Abnormal mammogram Arthritis Back problem Depression with anxiety Occipital neuralgia Seizures Home Medications fluoxetine 40 mg PO TID 09/10/18 [History Last Taken Unknown] gabapentin 900 mg PO BID 09/10/18 [History Last Taken Unknown] meclizine 25 mg PO PRN PRN 09/10/18 [History Last Taken Unknown] lurasidone 20 mg tablet 20 mg PO DAILY 12/16/18 [History Last Taken Unknown] cyclobenzaprine 10 mg PO TID PRN PRN 05/04/19 [History Last Taken Unknown] meloxicam 7.5 mg PO DAILY 05/04/19 [History Last Taken Unknown] topiramate 200 mg PO DAILY 05/04/19 [History Last Taken Unknown] Allergy/AdvReac Type Severity Reaction Status Date / Time haloperidol [From Haldol] Allergy Angioedema Verified 11/18/21 03:56 Family History Mother Asthma Arthritis Diabetes Hypertension High cholesterol Uncle Colon cancer CVA (cerebral vascular accident) Aunt Cancer leukemia Heart disease Surgical History History of bilateral breast reduction surgery History of shoulder surgery Previous back surgery Social History Smoking Status: Current every day smoker tobacco type: cigarettes alcohol intake: never substance use type: does not use ROS ROS ED Constitutional Constitutional ED: Denies chills or fever(s) Eyes Eyes: Denies blurry vision ENT ENT ED: Denies ear pain, rhinorrhea or sore throat Cardiovascular Cardiovascular: Reports chest pain; Denies palpitations Respiratory/Chest Respiratory/Chest: Denies cough or dyspnea Gastrointestinal Gastrointestinal: Denies abdominal pain or nausea Genitourinary Genitourinary ED: Denies dysuria or hematuria Musculoskeletal Musculoskeletal: Denies myalgias or neck pain Integumentary Denies rash Neurologic Neurologic: Reports headache(s); Denies paresthesias or weakness Psychiatric Psychiatric: Denies depression Endocrine Endocrinology: Denies polydipsia or polyuria Allergic/Immunologic Allergic/Immunologic ED: Denies mouth swelling or urticaria EXAM Physical Exam Const Vital Signs: 11/18/21 03:52 11/18/21 03:58 11/18/21 04:48 Temperature 97.9 F Temperature Source Temporal Pulse Rate 91 Respiratory Rate 16 Respiratory Pattern Normal Blood Pressure 138/66 H Blood Pressure Mean 90 Pulse Ox 97 Oxygen Delivery Method Room Air 11/18/21 05:14 11/18/21 06:05 11/18/21 07:16 Temperature Temperature Source Pulse Rate 85 82 80 Respiratory Rate 14 18 16 Respiratory Pattern Blood Pressure 115/72 123/80 H 107/94 H Blood Pressure Mean 86 94 98 Pulse Ox 97 97 99 Oxygen Delivery Method Room Air Room Air Positive well nourished, well developed and obese General Appearance ED: well developed and NAD; Negative for cyanotic or diaphoretic Nutritional Appearance: obese HEENT Reports moist mucous membranes Eyes General Eye ED: Negative for pale conjunctiva or scleral icterus Neck no JVD Chest Wall inspection of chest normal and palpation of chest normal Resp normal respiratory effort and clear to auscultation bilaterally Effort and Inspection: Negative for pain with movement Auscultation: Negative for rales, rhonchi or wheezes Cardio regular rate and regular rhythm GI normal to inspection, nondistended, normoactive bowel sounds and non-tender Palpation: soft Back/Spine no CVA tenderness Extremity normal to inspection General Extremety ED: Negative for edema or tenderness General Extremity: Negative for edema Neuro Sensorium / Orientation: alert Psych mental status grossly normal Skin no rashes or lesions noted and no wounds MDM MDM MDM Narrative Medical decision making narrative: Patient CBC shows no marked abnormalities. Electrolytes show minimally decreased potassium. Creatinine is minimally high at 1.04. Troponin is negative. Chest x-ray had some right lower lobe atele ctasis or possible subtle infiltrate pneumonia. When I look at this this could also be breast tissue. She is not having continual pulmonary symptoms. She has a heart score of 3 because of her history, age and obesity. She has had months of symptoms. We will repeat a troponin. Patient's repeat troponin is unchanged. Her repeat EKG shows no marked interval change. I talked more with the patient. We talked about reflux as well as hiatal hernia. She now states that when she eats or swallows she does feel as though the food gets stuck in her lower chest and sometimes has a similar symptom to this. She states she will have to drink water several times to make that go down and then she feels better. The plan is to get her on Nexium or Prilosec. She will get this [id number]. I explained she should take this on a daily basis even if not having symptoms. Even if this helps, she still needs to see her private physician as soon as possible. She may warrant outpatient testing o r stress testing also. However, with her symptoms resolved and heart score of 3 with 2 - troponins and unchanged EKG I think she is safe for close follow-up. We did discuss returning if she is having worsening symptoms, vomiting, diaphoresis, dyspnea or any other concerns. Lab Data Attestation: I reviewed the patient's lab results. Labs: Laboratory Results - last 24 hr 11/18/21 11/18/21 11/18/21 04:00 04:00 06:09 WBC 9.5 RBC 4.15 L Hgb 12.5 Hct 38.7 MCV 93.3 MCH 30.1 MCHC 32.3 RDW Std Deviation 54.3 H RDW Coeff of Renate 15.9 H Plt Count 344 MPV 10.3 Immature Gran % (Auto) 0.400 Neut % (Auto) 55.9 Lymph % (Auto) 30.1 [place] % (Auto) 5.9 Eos % (Auto) 7.5 H Baso % (Auto) 0.2 Absolute Neuts (auto) 5.3 Absolute Lymphs (auto) 2.85 Nucleated RBC % 0 Sodium 141 Potassium 3.4 L Chloride 110 H Carbon Dioxide 24.0 Anion Gap 7 BUN 14 Creatinine 1.04 H Estim Creat Clear Calc 62.38 Est GFR (MDRD) Af Amer 71 Est GFR (MDRD) Non-Af 59 L BUN/Creatinine Ratio 13.5 Glucose 113 H Calcium 8.8 Troponin I High Sens 10 10 Radiography Diagnostic Testing: Clinical Impression(s) from Imaging Studies Chest X-Ray 11/18/21 04:20 IMPRESSION: Right lower lobe atelectasis or possible subtle infiltrate/pneumonia. Electronically Signed: Clementine Ayala MD at 4:43 EST Tel , Service support , EKG Initial EKG: Comments: EKG done for chest pain read by me shows a normal sinus rhythm with a rate of 91. No acute ST elevation or depression. No ectopy. CA interval, QRS duration are normal. QTc is slightly long. Of note, EKG was done while the patient was still having some symptoms. Symptoms resolved when I saw her. Discharge Plan Triage Chief Complaint: Chest Pain ED Provider: Salvador Payton Dx/Rx/DC Orders Clinical Impression: Acute epigastric pain, Chest pain Instructions: ED Chest Pain, Uncertain Cause Prescriptions: No Action Latuda 20 mg tablet 20 mg PO DAILY RF: 0 gabapentin 600 MG tablet 900 mg PO BID RF: 0 fluoxetine 20 mg capsule 40 mg PO TID RF: 0 meclizine 25 MG tablet,chewable 25 mg PO PRN PRN (Reason: Dizziness) RF: 0 cyclobenzaprine 10 MG tablet 10 mg PO TID PRN PRN (Reason: Muscle Spasm) RF: 0 meloxicam 7.5 MG tablet 7.5 mg PO DAILY RF: 0 topiramate 25 MG tablet 200 mg PO DAILY RF: 0 Primary Care Provider: Daniel Stapleton Referrals: Daniel Stapleton MD [Primary Care Provider] - As soon as possible Disposition Disposition: Home, Self Care
[2021-11-18 04:25] LABS: Absolute Lymphocyte Count 2.85 X10^3/uL (0.83-4.51); Absolute Neutrophil Count 5.3 X10^3/uL (2.0-7.7); Basophil# 0.02 X10^3/uL; Basophil% 0.2 % (0-1); Eosinophil# 0.71 X10^3/uL; Eosinophils% 7.5 % (0-5); Hematocrit 38.7 % (37-47); Hemoglobin 12.5 g/dL (12.0-15.0); Lymphocyte # 2.85 X10^3/ul (0.83-4.51); Lymphocyte % 30.1 % (19-41); Mean Corp Hgb Conc 32.3 g/dL (32-36); Mean Corpuscular Hgb 30.1 pg (27.0-32.0); Mean Corpuscular Volume 93.3 fL (81-99); Mean Platelet Vol. 10.3 fl (6.2-12.0); Monocyte# 0.56 X10^3/uL; Monocyte% 5.9 % (0-10); NRBC Flagged by Analyzer 0 % (0-5); Neutrophil # 5.28 X10^3/uL (2.7-7.7); Neutrophil % 55.9 % (47-70); Platelet Count 344 K/mm3 (150-450); RBC Distribution Width CV 15.9 % (11.6-14.6); RBC Distribution Width SD 54.3 fl (35.1-43.9); Red Blood Count 4.15 M/mm3 (4.2-5.4); White Blood Count 9.5 K/mm3 (4.4-11.0)
[2021-11-18 04:39] LABS: Anion Gap 7 (5-15); BUN 14 mg/dL (7-18); BUN/Creat Ratio 13.5 RATIO (10-20); Calcium,Total 8.8 mg/dL (8.5-10.1); Chloride 110 mmol/L (98-107); Creatinine, Serum 1.04 mg/dL (0.55-1.02); EST Glomerular Filtration Rate 59 mL/min (>60); Est Glom Filt Rate - Afr Amer 71 mL/min (>60); Estimated Creatinine Clearance 62.38 ml/min; Glucose 113 mg/dL (74-106); Potassium 3.4 mmol/L (3.5-5.1); Sodium Level 141 mmol/L (136-145); Troponin-I HS 10 pg/mL (3.0-54.0)
[2021-11-18] MEDS: Aspirin 81 MG TAB.CHEW 324 MG PO (04:46)
[2021-11-18 05:14] VITALS: BP 115/72; PULSE 85; RESP 14; O2SAT 97
--- NOTE | 2021-11-18 06:00 | EKG12_ITS ---
Test Reason : REPEAT Blood Pressure : / mmHG Vent. Rate : 081 BPM Atrial Rate : 081 BPM P-R Int : 142 ms QRS Dur : 072 ms QT Int : 420 ms P-R-T Axes : 056 034 052 degrees QTc Int : 487 ms Normal sinus rhythm Prolonged QT Abnormal ECG Confirmed by MALACHI SEN, JEAN-PAUL ([id number]), photo editor STEVEN JARRETT ([id number]) on 11/19/2021 9:42:27 AM Referred By: CLARISSA Confirmed By:JEAN-PAUL LY MD
[2021-11-18 06:05] VITALS: BP 123/80; PULSE 82; RESP 18; O2SAT 97
[2021-11-18 06:40] LABS: Troponin-I HS 10 pg/mL (3.0-54.0)
[2021-11-18 07:16] VITALS: BP 107/94; PULSE 80; RESP 16; O2SAT 99
== END 2021-11-18 07:39 | disposition home or self-care (01) ==
PROVIDERS: Emergency Provider Emergency Medicine; PCP Family Medicine
DX: R10.13 Epigastric pain (principal); R07.9 Chest pain, unspecified; E66.9 Obesity, unspecified; F17.210 Nicotine dependence, cigarettes, uncomplicated; M19.90 Unspecified osteoarthritis, unspecified site; M54.81 Occipital neuralgia; Z79.1 Long term (current) use of non-steroidal anti-inflammatories (NSAID)
CPT/HCPCS: 71045; 80048; 84484; 85025; 93005; 99284; A4216

== ENCOUNTER 2022-01-31 13:33 | Outpatient (CLI) | payer MEDICARE, SELFPAY ==
--- NOTE | 2022-01-31 13:52 | BD_ITS ---
STUDY: DUAL ENERGY X-RAY ABSORPTIOMETRY / DXA REASON FOR EXAM: Female, 56 years old. Z00.00. The patient is postmenopausal. TECHNIQUE: Bone Mineral Density (BMD) measurements of lumbar spine and bilateral hips were obtained. COMPARISON: None. FINDINGS: Lumbar Spine (L1-L4): g/cm2 (1.144) / T-score (1.0) / Z-score (2.0) Findings are suggestive of normal bone density with a low fracture risk. Left Femur Total: g/cm2 (1.075) / T-score (1.1) / Z-score (1.7) Left Femoral Neck: g/cm2 (0.824) / T-score (-0.2) / Z-score (0.8) Right Femur Total: g/cm2 (1.081) / T-score (1.1) / Z-score (1.8) Right Femoral Neck: g/cm2 (0.997) / T-score (1.3) / Z-score (2.3) BD/Dexa Bone Density Study IMPRESSION: The patient is considered normal as outlined below according to World Sreekanth Organization (WHO) criteria with a low fracture risk. Reference Information: The T-score is the number of standard deviations above or below the standard which is normal for young adults at their peak bone mineral density. The World Health Organization (WHO) interprets the T-scores as follows: Above -1 Normal bone density Between -1 and -2.5 Osteopenia Equal to / or below -2.5 Osteoporosis As a practical clinical guideline, osteopenia may be graded as follows: Mild -1 through -1.5 Moderate -1.6 through -2.0 Severe -2.1 through -2.4 The Z-score is the number of standard deviations above or below age-matched controls. A Z-score of less than -1.5 would be considered abnormal. References: 1. NIH Osteoporosis and Related Bone Diseases www osteo.org 2. International Society for Clinical Densitometry www iscd.org 3. National Osteoporosis Foundation www nof.org Electronically Signed: Edilberto Farah MD at 13:47 EST ,
== END 2022-01-31 23:59 | disposition home or self-care (01) ==
PROVIDERS: PCP Family Medicine; Visit Provider Family Medicine
DX: Z00.00 Encounter for general adult medical examination without abnormal findings (principal); Z78.0 Asymptomatic menopausal state
CPT/HCPCS: 77080

== ENCOUNTER 2022-02-04 14:06 | Outpatient (CLI) | payer MEDICARE, SELFPAY ==
--- NOTE | 2022-02-04 14:25 | RAD_ITS ---
STUDY: X-RAY - RIGHT WRIST REASON FOR EXAM: Female, 56 years old. Right Wrist Pain TECHNIQUE: 3 view(s) of the wrist were obtained. COMPARISON: None. FINDINGS: No acute fracture or dislocation. 0.9 cm well-corticated lucent lesion in the head of the scaphoid bone consistent with bone cyst. Negative ulnar variance with shortening of the ulna relative to the distal radius. Joint spaces are well-maintained. Normal alignment. Soft tissues are unremarkable. No radiopaque foreign body or soft tissue gas. RAD/Wrist min 3 Views IMPRESSION: No acute findings. Lucent lesion in the head of the scaphoid consistent with bone cyst. Negative ulnar variance. Electronically Signed: Yamilet Page MD at 23:59 EST Reading Location ID and State: [id number] / Tel , Service support ,
== END 2022-02-04 23:59 | disposition home or self-care (01) ==
PROVIDERS: PCP Family Medicine; Referring Provider Family Medicine; Visit Provider Family Medicine
DX: M25.539 Pain in unspecified wrist (principal)
CPT/HCPCS: 73110

== ENCOUNTER 2022-02-13 16:24 | Outpatient (CLI) | payer MEDICARE, SELFPAY ==
--- NOTE | 2022-02-13 16:31 | MRI_ITS ---
STUDY: MRI BRAIN WITH AND WITHOUT CONTRAST REASON FOR EXAM: Female, 56 years old. TREMOR TECHNIQUE: Standardized multiplanar fat and water weighted pulse sequences were obtained. IV dotarem 20ml was administered for the contrast portion of the examination. MRI examination brain obtained with standard protocol including multiplanar multiecho pre and postcontrast imaging. COMPARISON: None. FINDINGS: Normal size of the ventricles and extra-axial spaces for the patient''s age. Normal white matter tracts of the supratentorial brain. Normal bilateral basal ganglia. Normal thalami. There is no extra-axial fluid accumulation. Normal flow voids within the major intracranial circulation suggesting patency by spin echo criteria. Normal venous enhancement. There is no enhancing intra-axial or extra-axial abnormality. Normal sella turcica, pituitary gland, infundibular stalk, optic chiasm and hypothalamus. Normal tectal plate and pineal gland. Normal midbrain, trevin and medulla. Normal cerebellum. Normal basal cisterns. Normal bilateral temporal bones. Normal bilateral internal auditory canals. No areas of abnormal contrast enhancement. Normal flow voids noted within the vessels at the skull base. No filling defects identified within the visualized dural sinuses.. No demonstrated orbital abnormality, within the constraints of a routine brain study. Normal visualized paranasal sinuses. Normal calvarium and skull base. Normal visualized soft tissue structures. Normal visualized upper cervical spine. Mild to moderate LEFT mastoid air cell disease noted. MRI/Brain W/WO Contrast IMPRESSION: 1. Normal unenhanced and enhanced MRI of the brain. 2. No intraparenchymal mass, hemorrhage, or acute territorial infarct. No areas of abnormal contrast enhancement. 3. Mild to moderate LEFT mastoid air cell disease. Electronically Signed: Emile Dempsey MD at 1:37 EDT ,
== END 2022-02-13 23:59 | disposition home or self-care (01) ==
PROVIDERS: PCP Family Medicine; Visit Provider Family Medicine
DX: R25.1 Tremor, unspecified (principal)
CPT/HCPCS: 70553; A9575

== ENCOUNTER 2022-02-27 16:08 | Outpatient (CLI) | payer MEDICARE, SELFPAY ==
--- NOTE | 2022-02-27 16:11 | RAD_ITS ---
EXAM: XR SKULL, 4 OR MORE VIEWS CLINICAL INDICATION: OCCIPITAL NEURALGIA TECHNIQUE: Frontal, lateral and Robins views of the skull. This report was created using [employer] report generation technology. COMPARISON: None. FINDINGS: BONES/JOINTS: Unremarkable. No depressed skull fracture. No destructive or sclerotic abnormality observed. SINUSES: No acute abnormality. SOFT TISSUES: Unremarkable. No soft tissue swelling or gas. RAD/Skull min 4 Views IMPRESSION: Unremarkable radiographs of the skull. Electronically Signed: Ciro Rodriguez MD at 3:40 EDT ,
== END 2022-02-27 23:59 | disposition home or self-care (01) ==
LOC: MTRAD 16:09
PROVIDERS: PCP Family Medicine; Referring Provider Family Medicine; Visit Provider Family Medicine
DX: M54.81 Occipital neuralgia (principal)
CPT/HCPCS: 70260

== ENCOUNTER 2022-03-08 16:32 | Outpatient (CLI) | payer MEDICARE, SELFPAY ==
[2022-03-08 17:24] LABS: Absolute Lymphocyte Count 1.77 X10^3/uL (0.83-4.51); Absolute Neutrophil Count 4.8 X10^3/uL (2.0-7.7); Basophil# 0.02 X10^3/uL; Basophil% 0.3 % (0-1); Eosinophil# 0.32 X10^3/uL; Eosinophils% 4.3 % (0-5); Hematocrit 34.2 % (37-47); Hemoglobin 11.2 g/dL (12.0-15.0); Lymphocyte # 1.77 X10^3/ul (0.83-4.51); Lymphocyte % 23.8 % (19-41); Mean Corp Hgb Conc 32.7 g/dL (32-36); Mean Corpuscular Hgb 29.7 pg (27.0-32.0); Mean Corpuscular Volume 90.7 fL (81-99); Mean Platelet Vol. 10.8 fl (6.2-12.0); Monocyte# 0.49 X10^3/uL; Monocyte% 6.6 % (0-10); NRBC Flagged by Analyzer 0 % (0-5); Neutrophil # 4.83 X10^3/uL (2.7-7.7); Neutrophil % 64.7 % (47-70); Platelet Count 309 K/mm3 (150-450); RBC Distribution Width CV 15.7 % (11.6-14.6); RBC Distribution Width SD 51.8 fl (35.1-43.9); Red Blood Count 3.77 M/mm3 (4.2-5.4); White Blood Count 7.5 K/mm3 (4.4-11.0)
[2022-03-08 17:58] LABS: Anion Gap 3 (5-15); BUN 13 mg/dL (7-18); BUN/Creat Ratio 11.8 RATIO (10-20); Calcium,Total 8.6 mg/dL (8.5-10.1); Chloride 114 mmol/L (98-107); EST Glomerular Filtration Rate 55 mL/min (>60); Est Glom Filt Rate - Afr Amer 66 mL/min (>60); Glucose 97 mg/dL (74-106); Potassium 3.6 mmol/L (3.5-5.1); Sodium Level 140 mmol/L (136-145)
== END 2022-03-08 23:59 | disposition home or self-care (01) ==
LOC: MFPLAB 16:34
PROVIDERS: PCP Family Medicine; Referring Provider Family Medicine; Visit Provider Family Medicine
DX: R53.83 Other fatigue (principal)
CPT/HCPCS: 36415; 80048; 82306; 85025

== ENCOUNTER 2022-03-11 16:12 | Outpatient (CLI) | payer MEDICARE, SELFPAY ==
--- NOTE | 2022-03-11 16:25 | RAD_ITS ---
STUDY: X-RAY CHEST REASON FOR EXAM: Female, 56 years old. Exertional shortness of breath TECHNIQUE: PA and lateral views of the chest. COMPARISON: None. FINDINGS: The lungs are clear and expanded. There is no demonstrated pleural abnormality. Normal size heart. Normal mediastinum and josé miguel. Normal visualized pulmonary arteries. Normal visualized aortic arch and descending thoracic aorta. Normal visualized thoracic spine. Normal visualized ribs, clavicles, and shoulders. There is no demonstrated abnormality of the visualized soft tissue structures of the upper abdomen. RAD/Chest PA and Lateral IMPRESSION: Normal x-ray examination of the chest. Electronically Signed: Corbin Connell MD at 10:37 EDT ,
[2022-03-11 18:19] LABS: Anion Gap 6 (5-15); BUN 12 mg/dL (7-18); BUN/Creat Ratio 11.3 RATIO (10-20); Calcium,Total 8.9 mg/dL (8.5-10.1); Chloride 112 mmol/L (98-107); Creatinine, Serum 1.06 mg/dL (0.55-1.02); EST Glomerular Filtration Rate 57 mL/min (>60); Est Glom Filt Rate - Afr Amer 69 mL/min (>60); Ferritin 21 ng/mL (8-252); Glucose 101 mg/dL (74-106); Iron 41 ug/dL (50-170); Iron Binding Capacity,Total 442 ug/dL (250-450); Potassium 3.3 mmol/L (3.5-5.1); Sodium Level 140 mmol/L (136-145)
[2022-03-11 18:21] LABS: Vitamin B12 437 pg/mL (211-911)
== END 2022-03-11 23:59 | disposition home or self-care (01) ==
LOC: MTLAB 16:13
PROVIDERS: PCP Family Medicine; Referring Provider Family Medicine; Visit Provider Family Medicine
DX: R06.02 Shortness of breath (principal); D64.9 Anemia, unspecified; R94.4 Abnormal results of kidney function studies
CPT/HCPCS: 36415; 71046; 80048; 82607; 82728; 83540; 83550

== ENCOUNTER 2022-03-12 19:38 | Emergency (ER) | payer MEDICARE, SELFPAY ==
[2022-03-12 19:39] VITALS: BP 162/78; PULSE 98; RESP 16; TEMP 36.5; O2SAT 99; BMI 36.1
[2022-03-12 20:29] VITALS: BP 91/71; PULSE 85; RESP 15; O2SAT 96
--- NOTE | 2022-03-12 20:51 | EKG12_ITS ---
Test Reason : SOB,CP Blood Pressure : / mmHG Vent. Rate : 088 BPM Atrial Rate : 088 BPM P-R Int : 152 ms QRS Dur : 076 ms QT Int : 414 ms P-R-T Axes : 056 017 051 degrees QTc Int : 500 ms Normal sinus rhythm Prolonged QT Abnormal ECG Confirmed by MALACHI SEN, JEAN-PAUL ([id number]), online editor STEVEN JARRETT ([id number]) on 03/14/2022 1:41:07 PM Referred By: MARLIN Confirmed By:JEAN-PAUL LY MD
--- NOTE | 2022-03-12 20:52 | EDS_ITS ---
HPI History of Present Illness Chief Complaint: Lower Extremity Injury Informant: patient Narrative Narrative: Patient's reason for coming to the ED today is bilateral lower extremity swelling. Patient has multiple issues and complaints. Most of these been going on for months to years. She sometimes has short-term memory loss. Yet she is able to recall all her events with me. She also gets occasional chest pain. She gets episodes where she suddenly cannot breathe that lasts for seconds to minutes. They then resolved. These have been going on for quite some time. She has lower extremity swelling. This has been going on more for about 4 5 days. It i s much worse when she stands up. She was standing up at work 8 hours today so they got worse. She just saw her private physician for this it sounds like on Friday. She was started on Lasix. She took 1 dose yesterday and then took another one shortly before coming in. She states even though she took it before coming in the swelling is not down. I discussed that it does not work quite that fast. She denies any heart history or history congestive heart failure. She has not had any recent travel surgery immobilization personal or family history of DVT or PE. [facility] Medical History Abnormal mammogram Arthritis Back problem Depression with anxiety Occipital neuralgia Seizures Home Medications fluoxetine 40 mg PO DAILY 09/10/18 [History Last Taken Unknown] meclizine 25 mg PO PRN PRN 09/10/18 [History Last Taken Unknown] lurasidone 20 mg tablet 60 mg PO DAILY 12/16/18 [History Last Taken Unknown] cyclobenzaprine 10 mg PO DAILY 05/04/19 [History Last Taken Unknown] meloxicam 7.5 mg PO DAILY 05/04/19 [History Last Taken Unknown] topiramate 200 mg PO DAILY 05/04/19 [History Last Taken Unknown] buprenorphine 5 mcg TRANSDERMAL Q7D 03/12/22 [History Last Taken Unknown] duloxetine 30 mg PO DAILY 03/12/22 [History Last Taken Unknown] furosemide 20 mg PO DAILY 03/12/22 [History Last Taken Unknown] zolpidem 5 mg PO QHS 03/12/22 [History Last Taken Unknown] Allergy/AdvReac Type Severity Reaction Status Date / Time haloperidol [From Haldol] Allergy Angioedema Verified 03/12/22 19:39 Family History Mother Asthma Arthritis Diabetes Hypertension High cholesterol Uncle Colon cancer CVA (cerebral vascular accident) Aunt Cancer leukemia Heart disease Surgical History History of bilateral breast reduction surgery History of shoulder surgery Previous back surgery Social History Smoking Status: Current every day smoker tobacco type: cigarettes alcohol intake: never substance use type: does not use ROS ROS ED Constitutional Constitutional ED: Denies chills or fever(s) Eyes Eyes: Denies blurry vision ENT ENT ED: Denies rhinorrhea Cardiovascular Cardiovascular: Reports chest pain and other Details: Intermittent chest pain going on for months to years. Not going on today. Respiratory/Chest Respiratory/Chest: Reports dyspnea and other Details: Intermittent episodes of dyspnea that come on sporadically and last for seconds to minutes. Gastrointestinal Gastrointestinal: Denies nausea or vomiting Genitourinary Genitourinary ED: Denies dysuria Musculoskeletal Musculoskeletal: Reports other Details: Bilateral lower feet pain Integumentary Denies rash Neurologic Neurologic: Reports other Details: Occasional short-term memory loss. ; Denies weakness Psychiatric Psychiatric: Reports anxiety and depression Endocrine Endocrinology: Denies polydipsia or polyuria Allergic/Immunologic Allergic/Immunologic ED: Denies urticaria EXAM Physical Exam Const Vital Signs: 03/12/22 19:39 03/12/22 20:29 03/12/22 21:08 Temperature 97.7 F L Temperature Source Temporal Pulse Rate 98 85 86 Respiratory Rate 16 15 Blood Pressure 162/78 H 91/71 98/64 Blood Pressure Mean 106 77 75 Pulse Ox 99 96 95 Oxygen Delivery Method Room Air Room Air Room Air Positive well nourished, well developed and obese General Appearance ED: well developed and NAD; Negative for cyanotic or diaphoretic Nutritional Appearance: obese HEENT Reports moist mucous membranes Eyes General Eye ED: Negative for pale conjunctiva or scleral icterus Neck no JVD Chest Wall inspection of chest normal and palpation of chest normal Resp normal respiratory effort and clear to auscultation bilaterally Effort and Inspection: Negative for pain with movement Auscultation: Negative for rales, rhonchi or wheezes Cardio regular rate, regular rhythm and no murmurs GI normal to inspection, nondistended, normoactive bowel sounds and non-tender Palpation: soft Back/Spine no CVA tenderness Extremity Extremity Narrative: Patient does have some bilateral nonpitting edema of both feet and ankles/lower third of shins. Pulses are normal. No cord. No distended veins. No asymmetry. Neuro oriented x3 Sensorium / Orientation: alert Psych mental status grossly normal Skin no rashes or lesions noted MDM MDM MDM Narrative Medical decision making narrative: Patient CBC is normal other than minimal anemia. Electrolytes show no marked abnormalities. Potassium is slightly low. This might be from her Lasix. Creatinine is at her baseline. Troponin is negative and only 3. BNP is 11.6. Ultrasound shows no DVT. X-ray shows no cardiomegaly congestive heart failure or other acute process. I think the patient likely has lymphedema. She does admit that she gained a fair amount of weight recently. This can contribute. She has seen her doctor for this. She just took 1 Lasix yesterday. She will follow up with her physician. We discussed reasons to return. Lab Data Attestation: I reviewed the patient's lab results. Labs: Laboratory Results - last 24 hr 03/12/22 03/12/22 03/12/22 21:00 21:00 21:00 WBC 6.3 RBC 4.01 L Hgb 11.6 L Hct 36.3 L MCV 90.5 MCH 28.9 MCHC 32.0 RDW Std Deviation 50.8 H RDW Coeff of Renate 15.3 H Plt Count 344 MPV 10.6 Immature Gran % (Auto) 0.300 Neut % (Auto) 65.2 Lymph % (Auto) 21.8 [place] % (Auto) 6.8 Eos % (Auto) 5.7 H Baso % (Auto) 0.2 Absolute Neuts (auto) 4.1 Absolute Lymphs (auto) 1.38 Nucleated RBC % 0 Sodium 142 Potassium 3.3 L Chloride 111 H Carbon Dioxide 25.0 Anion Gap 6 BUN 12 Creatinine 1.08 H Estim Creat Clear Calc 60.07 Est GFR (MDRD) Af Amer 68 Est GFR (MDRD) Non-Af 56 L BUN/Creatinine Ratio 11.1 Glucose 119 H Calcium 8.4 L Troponin I High Sens 3 B-Natriuretic Peptide 11.6 Radiography Diagnostic Testing: Clinical Impression(s) from Imaging Studies Venous Duplex 03/12/22 20:54 IMPRESSION: No sonographic evidence of deep venous thrombosis. Electronically Signed: Iván Pollard MD at 22:11 EDT , Chest X-Ray 03/12/22 21:10 IMPRESSION: No acute radiographic abnormalities. Electronically Signed: Iván Pollard MD at 21:30 EDT , EKG Initial EKG: Comments: EKG was done due to a history of intermittent dyspnea and chest pain for months or years. EKG read by me shows a normal sinus rhythm with a rate of 88. No ventricular ectopy. No acute ST elevation or depression. OR interval and QRS duration are normal. QTc is a bit long at 500 ms. Discharge Plan Triage Chief Complaint: Lower Extremity Injury ED Provider: Salvador Payton Dx/Rx/DC Orders Clinical Impression: Lymphedema of both lower extremities Instructions: ED Lymphedema Prescriptions: No Action Latuda 20 mg tablet 60 mg PO DAILY RF: 0 fluoxetine 20 mg capsule 40 mg PO DAILY RF: 0 meclizine 25 MG tablet,chewable 25 mg PO PRN PRN (Reason: Dizziness) RF: 0 cyclobenzaprine 10 MG tablet 10 mg PO DAILY RF: 0 meloxicam 7.5 MG tablet 7.5 mg PO DAILY RF: 0 topiramate 25 MG tablet 200 mg PO DAILY RF: 0 zolpidem 5 mg tablet 5 mg PO QHS RF: 0 furosemide 20 mg tablet 20 mg PO DAILY RF: 0 duloxetine 30 mg capsule,delayed release(DR/EC) 30 mg PO DAILY RF: 0 buprenorphine 5 mcg/hour patch weekly 5 mcg transdermal Q7D RF: 0 Primary Care Provider: Daniel Stapleton Referrals: Daniel Stapleton MD [Primary Care Provider] - As soon as possible Disposition Disposition: Home, Self Care
--- NOTE | 2022-03-12 20:54 | US_ITS ---
INDICATION: BILATERAL LEG SWELLING EXAMINATION: US Venous Duplex LE Bilat Complete TECHNIQUE: Sykes scale, pulse wave, and color flow Doppler imaging was performed of the lower extremity venous system. The bilateral greater saphenous, common femoral, femoral, and popliteal veins were interrogated. COMPARISON: None. FINDINGS: There is normal compression, augmentation, and signal throughout the visualized deep lower extremity veins. No mass or fluid collection. US/Venous Duplex Imag/Brandyn Extrem IMPRESSION: No sonographic evidence of deep venous thrombosis. Electronically Signed: Iván Pollard MD at 22:11 EDT ,
[2022-03-12 21:08] VITALS: BP 98/64; PULSE 86; O2SAT 95
--- NOTE | 2022-03-12 21:10 | RAD_ITS ---
INDICATION: SOB EXAMINATION/TECHNIQUE: X-RAY - XR Chest 1 View COMPARISON: 03/11/2022. FINDINGS: The lungs are clear. The cardiomediastinal silhouette is unremarkable. No pleural effusion or pneumothorax. Degenerative changes of the thoracic spine. RAD/Chest 1 View (Portable) IMPRESSION: No acute radiographic abnormalities. Electronically Signed: Iván Pollard MD at 21:30 EDT ,
[2022-03-12 21:29] LABS: Absolute Lymphocyte Count 1.38 X10^3/uL (0.83-4.51); Absolute Neutrophil Count 4.1 X10^3/uL (2.0-7.7); Basophil# 0.01 X10^3/uL; Basophil% 0.2 % (0-1); Eosinophil# 0.36 X10^3/uL; Eosinophils% 5.7 % (0-5); Hematocrit 36.3 % (37-47); Hemoglobin 11.6 g/dL (12.0-15.0); Lymphocyte # 1.38 X10^3/ul (0.83-4.51); Lymphocyte % 21.8 % (19-41); Mean Corpuscular Hgb 28.9 pg (27.0-32.0); Mean Corpuscular Volume 90.5 fL (81-99); Mean Platelet Vol. 10.6 fl (6.2-12.0); Monocyte# 0.43 X10^3/uL; Monocyte% 6.8 % (0-10); NRBC Flagged by Analyzer 0 % (0-5); Neutrophil # 4.14 X10^3/uL (2.7-7.7); Neutrophil % 65.2 % (47-70); Platelet Count 344 K/mm3 (150-450); RBC Distribution Width CV 15.3 % (11.6-14.6); RBC Distribution Width SD 50.8 fl (35.1-43.9); Red Blood Count 4.01 M/mm3 (4.2-5.4); White Blood Count 6.3 K/mm3 (4.4-11.0)
[2022-03-12 21:46] LABS: Anion Gap 6 (5-15); BUN 12 mg/dL (7-18); BUN/Creat Ratio 11.1 RATIO (10-20); Calcium,Total 8.4 mg/dL (8.5-10.1); Chloride 111 mmol/L (98-107); Creatinine, Serum 1.08 mg/dL (0.55-1.02); EST Glomerular Filtration Rate 56 mL/min (>60); Est Glom Filt Rate - Afr Amer 68 mL/min (>60); Estimated Creatinine Clearance 60.07 ml/min; Glucose 119 mg/dL (74-106); Potassium 3.3 mmol/L (3.5-5.1); Sodium Level 142 mmol/L (136-145); Troponin-I HS 3 pg/mL (3.0-54.0)
[2022-03-12 21:52] LABS: BNP,B-Type NATRIURETIC PEPTIDE 11.6 pg/mL (0-100)
== END 2022-03-12 23:04 | disposition home or self-care (01) ==
PROVIDERS: Emergency Provider Emergency Medicine; PCP Family Medicine; Visit Provider Emergency Medicine
DX: I89.0 Lymphedema, not elsewhere classified (principal); F17.210 Nicotine dependence, cigarettes, uncomplicated; F41.9 Anxiety disorder, unspecified; F32.A Depression, unspecified; R06.00 Dyspnea, unspecified; R07.9 Chest pain, unspecified
CPT/HCPCS: 71045; 80048; 83880; 84484; 85025; 93005; 93970; 99284; A4216

== ENCOUNTER 2022-03-20 11:49 | Outpatient (CLI) | payer MEDICARE, SELFPAY ==
[2022-03-20 15:33] LABS: Anion Gap 8 (5-15); BUN 11 mg/dL (7-18); BUN/Creat Ratio 11.9 RATIO (10-20); Chloride 111 mmol/L (98-107); Creatinine, Serum 0.92 mg/dL (0.55-1.02); EST Glomerular Filtration Rate 67 mL/min (>60); Est Glom Filt Rate - Afr Amer 81 mL/min (>60); Glucose 133 mg/dL (74-106); Potassium 3.7 mmol/L (3.5-5.1); Sodium Level 142 mmol/L (136-145)
== END 2022-03-20 23:59 | disposition home or self-care (01) ==
LOC: MTLAB 11:49
PROVIDERS: PCP Family Medicine; Referring Provider Family Medicine; Visit Provider Family Medicine
DX: E87.6 Hypokalemia (principal)
CPT/HCPCS: 36415; 80048

== ENCOUNTER → 2022-03-25 | Outpatient (CLI) | payer MEDICARE, SELFPAY ==
[2022-03-25 18:51] LABS: Anion Gap 6 (5-15); BUN 11 mg/dL (7-18); BUN/Creat Ratio 9.6 RATIO (10-20); Calcium,Total 8.8 mg/dL (8.5-10.1); Chloride 107 mmol/L (98-107); Creatinine, Serum 1.15 mg/dL (0.55-1.02); EST Glomerular Filtration Rate 52 mL/min (>60); Est Glom Filt Rate - Afr Amer 63 mL/min (>60); Glucose 178 mg/dL (74-106); Potassium 3.3 mmol/L (3.5-5.1); Sodium Level 138 mmol/L (136-145)
== END | disposition home or self-care (01) ==
LOC: MFPLAB 16:42
PROVIDERS: PCP Family Medicine; Visit Provider Family Medicine
DX: I89.0 Lymphedema, not elsewhere classified (principal)
CPT/HCPCS: 36415; 80048

== ENCOUNTER → 2022-04-26 | Outpatient (CLI) | payer MEDICARE, SELFPAY ==
[2022-04-26 18:04] LABS: Anion Gap 6 (5-15); BUN 12 mg/dL (7-18); BUN/Creat Ratio 9.1 RATIO (10-20); Calcium,Total 9.4 mg/dL (8.5-10.1); Chloride 109 mmol/L (98-107); Creatinine, Serum 1.32 mg/dL (0.55-1.02); EST Glomerular Filtration Rate 45 mL/min (>60); Est Glom Filt Rate - Afr Amer 54 mL/min (>60); Glucose 154 mg/dL (74-106); Potassium 3.5 mmol/L (3.5-5.1); Sodium Level 140 mmol/L (136-145)
== END | disposition home or self-care (01) ==
LOC: MFPLAB 15:21
PROVIDERS: PCP Family Medicine; Referring Provider Family Medicine; Visit Provider Family Medicine
DX: I89.0 Lymphedema, not elsewhere classified (principal)
CPT/HCPCS: 36415; 80048

== ENCOUNTER → 2022-05-06 | Outpatient (CLI) | payer MEDICARE, SELFPAY ==
[2022-05-06 17:41] LABS: Absolute Lymphocyte Count 2.08 X10^3/uL (0.83-4.51); Absolute Neutrophil Count 3.3 X10^3/uL (2.0-7.7); Basophil# 0.01 X10^3/uL; Basophil% 0.2 % (0-1); Eosinophil# 0.23 X10^3/uL; Eosinophils% 3.8 % (0-5); Hematocrit 42.5 % (37-47); Hemoglobin 13.4 g/dL (12.0-15.0); Lymphocyte # 2.08 X10^3/ul (0.83-4.51); Lymphocyte % 34.4 % (19-41); Mean Corp Hgb Conc 31.5 g/dL (32-36); Mean Corpuscular Hgb 29.7 pg (27.0-32.0); Mean Corpuscular Volume 94.2 fL (81-99); Mean Platelet Vol. 11.4 fl (6.2-12.0); Monocyte# 0.39 X10^3/uL; Monocyte% 6.4 % (0-10); NRBC Flagged by Analyzer 0 % (0-5); Neutrophil # 3.33 X10^3/uL (2.7-7.7); Platelet Count 336 K/mm3 (150-450); RBC Distribution Width CV 16.9 % (11.6-14.6); RBC Distribution Width SD 59.1 fl (35.1-43.9); Red Blood Count 4.51 M/mm3 (4.2-5.4); White Blood Count 6.1 K/mm3 (4.4-11.0)
[2022-05-06 18:07] LABS: Anion Gap 6 (5-15); BUN 13 mg/dL (7-18); BUN/Creat Ratio 13.1 RATIO (10-20); Calcium,Total 9.2 mg/dL (8.5-10.1); Chloride 112 mmol/L (98-107); Creatinine, Serum 0.99 mg/dL (0.55-1.02); EST Glomerular Filtration Rate 62 mL/min (>60); Est Glom Filt Rate - Afr Amer 75 mL/min (>60); Glucose 159 mg/dL (74-106); Potassium 3.6 mmol/L (3.5-5.1); Sodium Level 141 mmol/L (136-145)
== END | disposition home or self-care (01) ==
LOC: MFPLAB 15:26
PROVIDERS: PCP Family Medicine; Visit Provider Family Medicine
DX: I89.0 Lymphedema, not elsewhere classified (principal)
CPT/HCPCS: 36415; 80048; 85025

== ENCOUNTER 2022-07-19 23:22 | Emergency (ER) | payer MEDICARE, SELFPAY ==
[2022-07-19 23:23] VITALS: BP 143/98; PULSE 77; RESP 15; TEMP 36.3; O2SAT 99; BMI 34.3
--- NOTE | 2022-07-20 01:25 | EDS_ITS ---
HPI History of Present Illness Chief Complaint: Other, Pain/Inj Narrative Narrative: 56-year-old female with history of occipital neuralgia presenting for increasing pain. She states she was previously on Cymbalta and sees Dr. Kumar who prescribed this for her. She states that it did help her pain. Patient states that her pain has been increasing for the last 2 weeks because she does not run out of these. She states she has been taking gabapentin which she had leftover in her prescription because she was out. She has not made an appointment with Dr. Kumar for a refill. She denies any trauma. No systemic signs or symptoms. [facility] Medical History Abnormal mammogram Arthritis Back problem Depression with anxiety Occipital neuralgia Seizures Home Medications fluoxetine 20 mg capsule 40 mg PO DAILY 09/10/18 [History Last Taken Unknown] meclizine 25 mg chewable tablet 25 mg PO PRN PRN Dizziness 09/10/18 [History Last Taken Unknown] lurasidone 20 mg tablet (Latuda) 60 mg PO DAILY 12/16/18 [History Last Taken Unknown] cyclobenzaprine 10 mg tablet 10 mg PO DAILY 05/04/19 [History Last Taken Unknown] meloxicam 7.5 mg tablet 7.5 mg PO DAILY 05/04/19 [History Last Taken Unknown] topiramate 25 mg tablet 200 mg PO DAILY 05/04/19 [History Last Taken Unknown] buprenorphine 5 mcg/hour weekly transdermal patch 5 mcg transdermal Q7D 03/12/22 [History Last Taken Unknown] duloxetine 30 mg capsule,delayed release 30 mg PO DAILY 03/12/22 [History Last Taken Unknown] furosemide 20 mg tablet 20 mg PO DAILY 03/12/22 [History Last Taken Unknown] zolpidem 5 mg tablet 5 mg PO QHS 03/12/22 [History Last Taken Unknown] Allergy/AdvReac Type Severity Reaction Status Date / Time haloperidol [From Haldol] Allergy Angioedema Verified 07/19/22 23:27 Family History Mother Asthma Arthritis Diabetes Hypertension High cholesterol Uncle Colon cancer CVA (cerebral vascular accident) Aunt Cancer leukemia Heart disease Surgical History History of bilateral breast reduction surgery History of shoulder surgery Previous back surgery Social History Smoking Status: Current every day smoker tobacco type: cigarettes alcohol intake: never substance use type: does not use ROS ROS ED Constitutional Constitutional ED: Denies chills or fever(s) Eyes Eyes: Denies change in vision ENT ENT ED: Reports other Details: Pain behind right ear ; Denies rhinorrhea or sore throat Cardiovascular Cardiovascular: Denies chest pain or palpitations Respiratory/Chest Respiratory/Chest: Denies cough or dyspnea Gastrointestinal Gastrointestinal: Denies abdominal pain or constipation Genitourinary Genitourinary ED: Denies dysuria or hematuria Integumentary Denies abscess, Abrasions or rash Neurologic Neurologic: Reports headache(s) Psychiatric Psychiatric: Denies anxiety or depression EXAM Physical Exam Const Vital Signs: 07/19/22 23:23 Temperature 97.3 F L Temperature Source Temporal Pulse Rate 77 Respiratory Rate 15 Blood Pressure 143/98 H Blood Pressure Mean 113 Pulse Ox 99 Oxygen Delivery Method Room Air Positive well nourished General Appearance ED: NAD HEENT HEENT Narrative: There is tenderness behind the right ear above the level of the mastoid. Right TM is normal. Right external auditory canal normal. No rashes. atraumatic Eyes PERRL and EOMs intact bilaterally Chest Wall inspection of chest normal and palpation of chest normal Resp normal respiratory effort and clear to auscultation bilaterally Cardio regular rhythm Rate: regular rate Back/Spine normal to inspection and no thoracic nor lumbar tenderness Neuro oriented x3, CN's II-XII intact bilaterally, moves all extremities, no focal motor deficits and no sensory deficits noted Sensorium / Orientation: alert Motor Exam: strength 5/5 throughout Psych mental status grossly normal and thought process normal Skin no rashes or lesions noted MDM MDM MDM Narrative Medical decision making narrative: Patient states that she was on duloxetine previously. This helped with her pain. Her pain is increased over 2 weeks and she has yet to make an appointment for refill. I think is reasonable to refill her duloxetine here today. She is counseled to follow-up with her pain management physician. Impression: 1. Occipital neuralgia Discharge Plan Triage Chief Complaint: Other, Pain/Inj ED Provider: Scott Shafer Dx/Rx/DC Orders Prescriptions: No Action Latuda 20 mg tablet 60 mg PO DAILY fluoxetine 20 mg capsule 40 mg PO DAILY Label Comments: Take 3 capsule every morning meclizine 25 MG tablet,chewable 25 mg PO PRN PRN (Reason: Dizziness) cyclobenzaprine 10 MG tablet 10 mg PO DAILY meloxicam 7.5 MG tablet 7.5 mg PO DAILY topiramate 25 MG tablet 200 mg PO DAILY zolpidem 5 mg tablet 5 mg PO QHS Label Comments: TAKE 1 TABLET BY MOUTH ONCE DAILY AT BEDTIME furosemide 20 mg tablet 20 mg PO DAILY Label Comments: TAKE 1 TABLET BY MOUTH ONCE DAILY duloxetine 30 mg capsule,delayed release(DR/EC) 30 mg PO DAILY Label Comments: TAKE 1 CAPSULE BY MOUTH ONCE DAILY FOR 28 DAYS buprenorphine 5 mcg/hour patch weekly 5 mcg transdermal Q7D Label Comments: APPLY 1 PATCH EVERY 7 DAYS FOR 28 DAYS Primary Care Provider: Daniel Stapleton Referrals: Daniel Stapleton MD [Primary Care Provider] -
[2022-07-20 01:34] VITALS: BP 138/80; PULSE 74; RESP 15; TEMP 36.8; O2SAT 99
[2022-07-20] MEDS: DULoxetine Hcl 30 MG Capsule PO (01:37)
== END 2022-07-20 01:41 | disposition home or self-care (01) ==
LOC: ED 07-20 01:40
PROVIDERS: Emergency Provider Student in an Organized Health Care Education/Training Program; PCP Family Medicine; Visit Provider Student in an Organized Health Care Education/Training Program
DX: M54.81 Occipital neuralgia (principal); F17.210 Nicotine dependence, cigarettes, uncomplicated
CPT/HCPCS: 99282

== ENCOUNTER → 2022-08-09 | Outpatient (CLI) | payer MEDICARE, SELFPAY ==
--- NOTE | 2022-08-09 15:30 | RAD_ITS ---
STUDY: X-RAY - SKULL REASON FOR EXAM: Female, 56 years old. Cephalgia. TECHNIQUE: 5 view(s) of the skull were obtained. COMPARISON: None. FINDINGS: There is no demonstrated soft tissue swelling. Normal osseous calvarium. No fracture. No lytic or sclerotic foci. Normal visualized facial bones. Normal visualized paranasal sinuses. RAD/Skull min 4 Views IMPRESSION: Normal x-ray examination of the skull. Electronically Signed: Aashish Machuca DO at 22:58 EDT ,
== END | disposition home or self-care (01) ==
LOC: MTRAD 15:27
PROVIDERS: PCP Family Medicine; Referring Provider Family Medicine; Visit Provider Family Medicine
DX: R51.9 Headache, unspecified (principal)
CPT/HCPCS: 36415; 70260; 80048

== ENCOUNTER → 2022-08-09 | Outpatient (CLI) | payer MEDICARE, SELFPAY ==
[2022-08-09 17:35] LABS: Anion Gap 8 (5-15); BUN 10 mg/dL (7-18); BUN/Creat Ratio 10.9 RATIO (10-20); Calcium,Total 9.2 mg/dL (8.5-10.1); Chloride 105 mmol/L (98-107); Creatinine, Serum 0.92 mg/dL (0.55-1.02); EST Glomerular Filtration Rate 68 mL/min (>60); Est Glom Filt Rate - Afr Amer 82 mL/min (>60); Glucose 97 mg/dL (74-106); Potassium 4.1 mmol/L (3.5-5.1); Sodium Level 137 mmol/L (136-145)
== END | disposition home or self-care (01) ==
LOC: MFPLAB 15:26
PROVIDERS: PCP Family Medicine; Referring Provider Family Medicine; Visit Provider Family Medicine
DX: E87.6 Hypokalemia (principal)
CPT/HCPCS: 36415; 80048

== ENCOUNTER → 2022-09-16 | Outpatient (CLI) | payer MEDICARE, SELFPAY ==
[2022-09-16 18:41] LABS: Anion Gap 8 (5-15); BUN 10 mg/dL (7-18); BUN/Creat Ratio 9.9 RATIO (10-20); Calcium,Total 9.1 mg/dL (8.5-10.1); Chloride 108 mmol/L (98-107); Cholesterol 255 mg/dL (200); Creatinine, Serum 1.01 mg/dL (0.55-1.02); EST Glomerular Filtration Rate 61 mL/min (>60); Est Glom Filt Rate - Afr Amer 73 mL/min (>60); Glucose 93 mg/dL (74-106); High Density Lipoprotein 45 mg/dL; Potassium 3.4 mmol/L (3.5-5.1); Sodium Level 142 mmol/L (136-145); Triglycerides 175 mg/dL; Very Low Density Lipoprotein 35 mg/dL (5-40)
== END | disposition home or self-care (01) ==
LOC: MFPLAB 14:40
PROVIDERS: PCP Family Medicine; Referring Provider Family Medicine; Visit Provider Family Medicine
DX: Z00.00 Encounter for general adult medical examination without abnormal findings (principal); E66.9 Obesity, unspecified
CPT/HCPCS: 36415; 80048; 80061

== ENCOUNTER → 2022-10-17 | Outpatient (CLI) | payer MEDICARE, SELFPAY ==
--- NOTE | 2022-10-17 17:10 | RAD_ITS ---
EXAM: XR ABDOMEN, 2 VIEWS CLINICAL INDICATION: ABDOMINAL PAIN TECHNIQUE: Frontal view of the abdomen/pelvis with upright view of the abdomen. This report was created using [employer] report generation technology. COMPARISON: July 17, 2020 FINDINGS: LOWER THORAX: No acute pathology. INTRAPERITONEAL SPACE: No free air. GASTROINTESTINAL TRACT: Unremarkable. Non-obstructive. No bowel or stomach distention. ORGANS: Unremarkable as visualized. No organomegaly. No abnormal calcifications. BONES/JOINTS: Moderate osteoarthrosis involving the right hip. No acute or healing fracture or malalignment. No unusual lytic or sclerotic lesions of bone. SOFT TISSUES: No acute pathology. VASCULATURE: Multiple phleboliths in the pelvis. RAD/Abd Inc Decub and/or Erect IMPRESSION: No acute or obstructive disease involving the abdomen/pelvis. Moderate osteoarthrosis involving the right hip. Electronically Signed: Lb Ang MD at 17:54 EST Reading Location ID and State: [facility] / [place] Tel , Service support ,
[2022-10-17 17:58] LABS: Bacteria 0 SEEN /hpf (None Seen); Mucous, Urine 0 SEEN /hpf (<or=2+); Red Blood Cells-Urine 0 SEEN /hpf (0-5); White Blood Cells 0 SEEN /hpf (0-5)
[2022-10-17 18:04] LABS: Absolute Lymphocyte Count 2.71 X10^3/uL (0.83-4.51); Absolute Neutrophil Count 3.8 X10^3/uL (2.0-7.7); Basophil# 0.02 X10^3/uL; Basophil% 0.3 % (0-1); Eosinophils% 4.1 % (0-5); Hematocrit 45.3 % (37-47); Hemoglobin 14.6 g/dL (12.0-15.0); Lymphocyte # 2.71 X10^3/ul (0.83-4.51); Lymphocyte % 37.2 % (19-41); Mean Corp Hgb Conc 32.2 g/dL (32-36); Mean Corpuscular Hgb 31.4 pg (27.0-32.0); Mean Corpuscular Volume 97.4 fL (81-99); Mean Platelet Vol. 10.9 fl (6.2-12.0); Monocyte# 0.42 X10^3/uL; Monocyte% 5.8 % (0-10); NRBC Flagged by Analyzer 0 % (0-5); Neutrophil # 3.81 X10^3/uL (2.7-7.7); Neutrophil % 52.2 % (47-70); Platelet Count 339 K/mm3 (150-450); RBC Distribution Width CV 14.7 % (11.6-14.6); RBC Distribution Width SD 52.9 fl (35.1-43.9); Red Blood Count 4.65 M/mm3 (4.2-5.4); White Blood Count 7.3 K/mm3 (4.4-11.0)
[2022-10-17 18:22] LABS: ALB/GLOB Ratio 0.9 RATIO (0.9-2.4); AST(SGOT) 40 U/L (15-37); Alanine Aminotransfer ALT/SGPT 92 U/L (13-56); Albumin, Serum 3.5 g/dL (3.2-5.0); Alkaline Phosphatase 160 U/L (45-117); Anion Gap 6 (5-15); BUN 14 mg/dL (7-18); Calcium,Total 9.2 mg/dL (8.5-10.1); Chloride 106 mmol/L (98-107); Creatinine, Serum 0.88 mg/dL (0.55-1.02); EST Glomerular Filtration Rate 71 mL/min (>60); Est Glom Filt Rate - Afr Amer 86 mL/min (>60); Globulin 3.9 g/dL (2.2-4.2); Glucose 90 mg/dL (74-106); Potassium 4.2 mmol/L (3.5-5.1); Protein, Total 7.4 g/dL (6.4-8.2); Sodium Level 140 mmol/L (136-145)
[2022-10-17 18:24] LABS: Erythrocyte Sedimentation Rate 19 mm/hr (0-30)
[2022-10-17 18:31] LABS: Color, Urine Yellow (Yellow); Glucose, Dipstick 50 mg/dl (Normal); Ketone-Dipstick Negative (Negative); Leukocyte Esterase-Dipstick Negative /ul (Negative); Nitrite-Dipstick Negative (Negative); Occult Blood-Urine Negative /ul (Negative); Protein-Dipstick Negative (Negative); Urine Bilirubin Dipstick Negative (Negative); Urine Clarity Clear (Clear); Urine Urobilinogen Normal (Normal)
[2022-10-17 18:42] LABS: Squamous Epithelial Cells - UA 0-5 SEEN /hpf (5-10)
== END | disposition home or self-care (01) ==
LOC: MTLAB 16:58
PROVIDERS: PCP Family Medicine; Referring Provider Family Medicine; Visit Provider Family Medicine
DX: R10.9 Unspecified abdominal pain (principal)
CPT/HCPCS: 36415; 74019; 80053; 81001; 85025; 85652; 87086

== ENCOUNTER → 2023-01-10 | Outpatient (CLI) | payer MEDICARE, SELFPAY ==
--- NOTE | 2023-01-10 16:51 | RAD_ITS ---
INDICATION: ABDOMINAL PAIN EXAMINATION/TECHNIQUE: X-RAY - XR Abdomen W/ Decub and/or Erect Views COMPARISON: 10/17/2022 FINDINGS: BOWEL GAS PATTERN: Non-obstructive. No bowel or stomach distention. FREE AIR: Not assessed on a single supine view. ORGANOMEGALY: Not seen. CALCIFICATIONS: No abnormal calcifications observed. A few pelvic phleboliths redemonstrated. LOWER CHEST: No acute abnormal finding. RAD/Abd Inc Decub and/or Erect IMPRESSION: Non-obstructive bowel gas pattern. Electronically Signed: Daniel Gamez MD at 18:58 EST ,
[2023-01-10 17:45] LABS: Absolute Lymphocyte Count 2.42 X10^3/uL (0.83-4.51); Absolute Neutrophil Count 4.3 X10^3/uL (2.0-7.7); Basophil# 0.03 X10^3/uL; Basophil% 0.4 % (0-1); Eosinophil# 0.31 X10^3/uL; Eosinophils% 4.1 % (0-5); Hematocrit 47.1 % (37-47); Hemoglobin 15.1 g/dL (12.0-15.0); Lymphocyte # 2.42 X10^3/ul (0.83-4.51); Lymphocyte % 32.2 % (19-41); Mean Corp Hgb Conc 32.1 g/dL (32-36); Mean Corpuscular Hgb 30.9 pg (27.0-32.0); Mean Corpuscular Volume 96.5 fL (81-99); Monocyte# 0.42 X10^3/uL; Monocyte% 5.6 % (0-10); NRBC Flagged by Analyzer 0 % (0-5); Neutrophil # 4.31 X10^3/uL (2.7-7.7); Neutrophil % 57.3 % (47-70); Platelet Count 352 K/mm3 (150-450); RBC Distribution Width CV 13.2 % (11.6-14.6); RBC Distribution Width SD 47.7 fl (35.1-43.9); Red Blood Count 4.88 M/mm3 (4.2-5.4); White Blood Count 7.5 K/mm3 (4.4-11.0)
[2023-01-10 18:39] LABS: ALB/GLOB Ratio 1.2 RATIO (0.9-2.4); AST(SGOT) 40 U/L (15-37); Alanine Aminotransfer ALT/SGPT 63 U/L (13-56); Albumin, Serum 4.1 g/dL (3.2-5.0); Alkaline Phosphatase 109 U/L (45-117); Anion Gap 6 (5-15); BUN 7 mg/dL (7-18); BUN/Creat Ratio 6.4 RATIO (10-20); Calcium,Total 9.4 mg/dL (8.5-10.1); Chloride 107 mmol/L (98-107); Creatinine, Serum 1.09 mg/dL (0.55-1.02); EST Glomerular Filtration Rate 55 mL/min (>60); Est Glom Filt Rate - Afr Amer 67 mL/min (>60); Globulin 3.5 g/dL (2.2-4.2); Glucose 90 mg/dL (74-106); Protein, Total 7.6 g/dL (6.4-8.2); Sodium Level 140 mmol/L (136-145)
== END | disposition home or self-care (01) ==
LOC: MTLAB 16:49
PROVIDERS: PCP Family Medicine; Referring Provider Family Medicine; Visit Provider Family Medicine
DX: K92.1 Melena (principal); R10.9 Unspecified abdominal pain
CPT/HCPCS: 36415; 74019; 80053; 85025

== ENCOUNTER 2023-01-14 09:11 | Emergency (ER) | payer MEDICARE, SELFPAY ==
[2023-01-14 09:12] VITALS: BP 130/83; PULSE 75; RESP 14; TEMP 36.3; O2SAT 100; BMI 32.6
--- NOTE | 2023-01-14 09:18 | EKG12_ITS ---
Test Reason : RECHECK Blood Pressure : / mmHG Vent. Rate : 065 BPM Atrial Rate : 065 BPM P-R Int : 156 ms QRS Dur : 074 ms QT Int : 416 ms P-R-T Axes : 043 014 047 degrees QTc Int : 432 ms Normal sinus rhythm Normal ECG Confirmed by TOI SEN, SOPHIA ([id number]), legal editor STEVEN JARRETT ([id number]) on 01/16/2023 11:21:00 AM Referred By: Confirmed By:SOPHIA CM MD
--- NOTE | 2023-01-14 09:18 | RAD_ITS ---
STUDY: X-RAY CHEST REASON FOR EXAM: Female, 57 years old. Chest pain TECHNIQUE: Single AP portable view of the chest. COMPARISON: Comparison is made with prior study dated 03/12/2022. FINDINGS: EKG electrodes are seen. The lungs are clear and expanded. There is no demonstrated pleural abnormality. Normal size heart. Normal mediastinum and josé miguel. Normal visualized pulmonary arteries. Normal visualized aortic arch and descending thoracic aorta. There are diffuse degenerative changes of the visualized thoracic spine. Normal visualized ribs, clavicles, and shoulders. There is no demonstrated abnormality of the visualized soft tissue structures of the upper abdomen. RAD/Chest 1 View (Portable) IMPRESSION: Normal x-ray examination of the chest. Electronically Signed: Edilberto Farah MD at 9:48 EST ,
[2023-01-14 09:19] VITALS: BP 141/115; PULSE 80; RESP 17; O2SAT 100; O2SAT 98
[2023-01-14 09:34] LABS: Absolute Lymphocyte Count 2.71 X10^3/uL (0.83-4.51); Absolute Neutrophil Count 3.7 X10^3/uL (2.0-7.7); Basophil# 0.03 X10^3/uL; Basophil% 0.4 % (0-1); Eosinophil# 0.33 X10^3/uL; Eosinophils% 4.6 % (0-5); Hematocrit 48.7 % (37-47); Hemoglobin 15.9 g/dL (12.0-15.0); Lymphocyte # 2.71 X10^3/ul (0.83-4.51); Mean Corp Hgb Conc 32.6 g/dL (32-36); Mean Corpuscular Hgb 31.5 pg (27.0-32.0); Mean Corpuscular Volume 96.4 fL (81-99); Mean Platelet Vol. 10.7 fl (6.2-12.0); Monocyte% 5.6 % (0-10); NRBC Flagged by Analyzer 0 % (0-5); Neutrophil # 3.66 X10^3/uL (2.7-7.7); Neutrophil % 51.3 % (47-70); Platelet Count 314 K/mm3 (150-450); RBC Distribution Width CV 13.5 % (11.6-14.6); RBC Distribution Width SD 48.7 fl (35.1-43.9); Red Blood Count 5.05 M/mm3 (4.2-5.4); White Blood Count 7.1 K/mm3 (4.4-11.0)
--- NOTE | 2023-01-14 09:35 | ED.VIS.CHEST ---
HPI History of Present Illness Chief Complaint: Chest Pain Detail of Chief Complaint: Midsternal and left-sided chest discomfort. Nonexertional. Informant: patient Onset/Context/Timing Onset: Today Activity at onset: gradual Timing: Continuous Quality: Positive for Pressure Location: Substernal and Left Parasternal Current Severity: Mild Maximum Severity: Mild Worsened By: Nothing Relieved By: Nothing Associated Symptoms: Positive for Nausea and Lightheadedness; Negative for Vomiting, Diaphoresis, Cough or Fever Narrative Narrative: 57-year-old female past medical history of diabetes, hypertension, iron deficiency and smokes half pack cigarettes a day. States that she awoke this morning around 845 with midsternal chest pressure and mild shortness of breath. Nausea but no vomiting. [place] lightheaded. This was completely nonexertional. She has had it before in the past. Is never been associated with exertion. She has no known cardiac history. She has been having some GI issues with dark stools and has been referred for a work-up which she begins today around 3:00. She denies any recent exertional chest pain or exertional dyspnea. She is never had a DVT or PE. No leg pain or swelling. No hemoptysis. Her mom had cardiac disease with a stent around age 50. Prior Similar Symptoms: Yes Recent Illness/Hospitalization: No CVD Risk Factors: Positive for Hypertension and Diabetes PE Risk Factors: Positive for Recent Travel/Surgery; Negative for Prior DVT or PE, Cancer or OCP + Smoking + >/=35 TAD Risk Factors: Negative for Marfan's Syndrome [facility] Medical History Abnormal mammogram Arthritis Back problem Depression with anxiety Occipital neuralgia Seizures Home Medications fluoxetine 20 mg capsule 40 mg PO DAILY 09/10/18 [History Last Taken Unknown] meclizine 25 mg chewable tablet 25 mg PO PRN PRN Dizziness 09/10/18 [History Last Taken Unknown] lurasidone 20 mg tablet (Latuda) 60 mg PO DAILY 12/16/18 [History Last Taken Unknown] cyclobenzaprine 10 mg tablet 10 mg PO DAILY 05/04/19 [History Last Taken Unknown] meloxicam 7.5 mg tablet 7.5 mg PO DAILY 05/04/19 [History Last Taken Unknown] topiramate 25 mg tablet 200 mg PO DAILY 05/04/19 [History Last Taken Unknown] buprenorphine 5 mcg/hour weekly transdermal patch 5 mcg transdermal Q7D 03/12/22 [History Last Taken Unknown] duloxetine 30 mg capsule,delayed release 30 mg PO DAILY 03/12/22 [History Last Taken Unknown] furosemide 20 mg tablet 20 mg PO DAILY 03/12/22 [History Last Taken Unknown] zolpidem 5 mg tablet 5 mg PO QHS 03/12/22 [History Last Taken Unknown] duloxetine 30 mg capsule,delayed release 30 mg PO DAILY #30 caps 07/20/22 [Rx Last Taken Unknown] Allergy/AdvReac Type Severity Reaction Status Date / Time haloperidol [From Haldol] Allergy Angioedema Verified 01/14/23 09:15 Family History Mother Asthma Arthritis Diabetes Hypertension High cholesterol Uncle Colon cancer CVA (cerebral vascular accident) Aunt Cancer leukemia Heart disease Surgical History History of bilateral breast reduction surgery History of shoulder surgery Previous back surgery Social History Smoking Status: Current every day smoker tobacco type: cigarettes alcohol intake: never substance use type: does not use ROS ROS ED ROS Narrative Nonexertional chest discomfort. Dark stools. Review of Systems ROS Unobtainable: Denies due to encephalopathy Constitutional Constitutional ED: Denies chills or fever(s) Eyes Eyes: Reports none ENT ENT ED: Denies ear pain or rhinorrhea Cardiovascular Cardiovascular: Reports as per HPI and chest pain; Denies palpitations or racing heartbeat Respiratory/Chest Respiratory/Chest: Denies cough Gastrointestinal Gastrointestinal: Denies abdominal pain, constipation, diarrhea, nausea or vomiting Genitourinary Genitourinary ED: Denies dysuria Musculoskeletal Musculoskeletal: Denies arthralgias Integumentary Denies abscess Neurologic Neurologic: Denies headache(s) Psychiatric Psychiatric: Denies anxiety Endocrine Endocrinology: Denies cold intolerance Hematologic/Lymphatic Hematologic/Lymphatic: Denies easy bleeding Allergic/Immunologic Allergic/Immunologic ED: Denies mouth swelling or tongue swelling EXAM Physical Exam Narrative Exam Narrative: Well-appearing 57-year-old female. Vital signs stable afebrile. Pulse ox 100% on room air no hypoxia. H EENT exam unremarkable. Neck nontender no lymphadenopathy. Lungs clear to auscultation bilaterally. Heart regular rate and rhythm no murmur. Rate about 75. Chest wall reproducibly tender on the left. No positive bruising no subcu air crepitus. Abdomen soft nontender. Normal bowel sounds no peritoneal signs. Moving all 4 extremities. Calves are nontender without edema or cords. No swelling. Equal symmetric radial pulses. Back nontender. Neurologically she is awake and alert. Const Vital Signs: 01/14/23 09:12 01/14/23 09:16 01/14/23 09:19 Temperature 97.4 F L Temperature Source Temporal Pulse Rate 75 80 Respiratory Rate 14 17 Respiratory Effort Short of Breath Blood Pressure 130/83 H 141/115 H Blood Pressure Mean 98 123 Pulse Ox 100 98 Oxygen Delivery Method Room Air Room Air 01/14/23 09:19 01/14/23 10:12 Temperature Temperature Source Pulse Rate 65 Respiratory Rate 18 Respiratory Effort Blood Pressure 118/91 H Blood Pressure Mean 100 Pulse Ox 100 96 Oxygen Delivery Method Room Air Room Air Positive well nourished and well developed; Negative for cachectic, contractures or unkempt General Appearance ED: well developed and NAD; Negative for unkempt, cachectic, contractures or pallor Nutritional Appearance: Negative for cachectic HEENT Reports moist mucous membranes normocephalic and atraumatic; Negative for trauma or tenderness Eyes PERRL and EOMs intact bilaterally General Eye ED: Negative for pale conjunctiva or scleral icterus Neck no lymphadenopathy, supple and no JVD General: Negative for tenderness Chest Wall inspection of chest normal and palpation of chest normal Chest: Negative for tenderness Resp normal respiratory effort and clear to auscultation bilaterally Effort and Inspection: Negative for respiratory distress Auscultation: Negative for rales, rhonchi or wheezes Cardio regular rate, regular rhythm, S1 normal heart sound, S2 normal heart sound and no murmurs Peripheral Pulses: pulses 2+ throughout GI normal to inspection, nondistended, normoactive bowel sounds, soft to palpation, non-tender, non-distended and no masses Auscultation: Negative for hyperactive bowel sounds Palpation: Negative for splenomegaly or mass Back/Spine no CVA tenderness and no thoracic nor lumbar tenderness General Back: Negative for CVA tenderness Cervical Spine: Negative for cervical spine tenderness Extremity normal to inspection General Extremety ED: Negative for edema General Extremity: Negative for edema Neuro oriented x3, CN's II-XII intact bilaterally and no sensory deficits noted Sensorium / Orientation: awake, alert, oriented to person, oriented to place and oriented to time; Negative for confused, lethargic or stuporous Motor Exam: strength 5/5 throughout Psych mental status grossly normal Appearance: Negative for unkempt Attitude: No agitated Mood & Affect: Negative for depressed, anxious or tearful Skin no rashes or lesions noted and no wounds General Skin Exam: Negative for jaundice or pallor Rashes: No rashes noted Trauma: Negative for abrasion or laceration Heart Score History: Slightly/Non-Suspicious ECG: Normal Age: >45 - <65 years Risk Factors: 1 or 2 Risk Factors Troponin: </= Normal Limit Score: 2 MDM MDM MDM Narrative Medical decision making narrative: 57-year-old with nonexertional chest pain that is reproducible. This could also be reflux. Differential would include cardiac chest pain, reflux, musculoskeletal, PE but her only risk factors travel to [place] several weeks ago. She had no calf pain or swelling. No hemoptysis. No pleuritic pain. She has had the same pain before. She has no cardiac history. She undergo cardiac work-up. She will be given a GI cocktail and Protonix to see if it helps with her discomfort. There is definitely reproducible component to it also. I did review her recent work-ups and labs. Sleep exam patient complained of continued chest pain. A second EKG was obtained it again was read as normal and unchanged as the first. Otherwise she is doing well. We are awaiting a repeat 2-hour troponin. If that is okay she will be discharged home. Patient doing well at 12:17 PM will be discharged home for chest pain uncertain etiology. Lab Data Attestation: I reviewed the patient's lab results. Lab results narrative: CBC unremarkable white count 7.1. H&H of 15.9 and 48. Chemistries unremarkable. Gap of 5. BUN of 7 creatinine of 1. Glucose 91. Initial troponin is 10. PO2 of troponin was 7. Labs: Laboratory Results - last 24 hr 01/14/23 01/14/23 01/14/23 09:25 09:25 11:40 WBC 7.1 RBC 5.05 Hgb 15.9 H Hct 48.7 H MCV 96.4 MCH 31.5 MCHC 32.6 RDW Std Deviation 48.7 H RDW Coeff of Renate 13.5 Plt Count 314 MPV 10.7 Immature Gran % (Auto) 0.100 Neut % (Auto) 51.3 Lymph % (Auto) 38.0 Real % (Auto) 5.6 Eos % (Auto) 4.6 Baso % (Auto) 0.4 Absolute Neuts (auto) 3.7 Absolute Lymphs (auto) 2.71 Nucleated RBC % 0 Sodium 141 Potassium 4.2 Chloride 108 H Carbon Dioxide 28.0 Anion Gap 5 BUN 7 Creatinine 1.03 H Estim Creat Clear Calc 62.25 Est GFR (MDRD) Af Amer 72 Est GFR (MDRD) Non-Af 59 L BUN/Creatinine Ratio 6.8 L Glucose 91 Calcium 9.5 Troponin I High Sens 10 7 Radiography Chest X-Ray - ED: 1 View, Read by ED Physician, Read by Radiologist, Heart, Lungs, Mediastinum, Bony Structures, No Acute Disease and Chronic Changes Diagnostic Testing: Clinical Impression(s) from Imaging Studies Chest X-Ray 01/14/23 09:18 IMPRESSION: Normal x-ray examination of the chest. Electronically Signed: Edilberto Farah MD at 9:48 EST , Chest x-ray, portable, single view interpreted both by myself and the radiologist shows no acute abnormality. Normal cardiac silhouette mediastinum. Rhythm Strip Rhythm Strip: Sinus Rhythm Rate: 71 Ectopy: None EKG Initial EKG: Attestation: I personally reviewed and interpreted this EKG as follows: Interpretation: Sinus Rhythm and No Acute Injury Pattern Comments: Normal sinus rhythm rate of 71 no acute signs of VA or ischemia. No dysrhythmia. Follow-up EKG: Attestation: I personally reviewed and interpreted this EKG as follows: Interpretation: Sinus Rhythm and No Acute Injury Pattern Comments: Repeat EKG done at 10:04 AM shows normal sinus rhythm rate of 65 no acute signs of VA nor ischemia or any change from the first. Prior EKG tracings: available for review Prior: Unchanged Discharge Plan Triage Chief Complaint: Chest Pain ED Provider: Ricco Bond Dx/Rx/DC Orders Clinical Impression: Chest pain, History of diabetes mellitus, History of chronic hypertension Instructions: ED Chest Pain, Uncertain Cause Prescriptions: No Action Latuda 20 mg tablet 60 mg PO DAILY fluoxetine 20 mg capsule 40 mg PO DAILY Label Comments: Take 3 capsule every morning meclizine 25 MG tablet,chewable 25 mg PO PRN PRN (Reason: Dizziness) cyclobenzaprine 10 MG tablet 10 mg PO DAILY meloxicam 7.5 MG tablet 7.5 mg PO DAILY topiramate 25 MG tablet 200 mg PO DAILY zolpidem 5 mg tablet 5 mg PO QHS Label Comments: TAKE 1 TABLET BY MOUTH ONCE DAILY AT BEDTIME furosemide 20 mg tablet 20 mg PO DAILY Label Comments: TAKE 1 TABLET BY MOUTH ONCE DAILY duloxetine 30 mg capsule,delayed release(DR/EC) 30 mg PO DAILY Label Comments: TAKE 1 CAPSULE BY MOUTH ONCE DAILY FOR 28 DAYS buprenorphine 5 mcg/hour patch weekly 5 mcg transdermal Q7D Label Comments: APPLY 1 PATCH EVERY 7 DAYS FOR 28 DAYS duloxetine 30 mg capsule,delayed release(DR/EC) 30 mg PO DAILY Qty: 30 0RF Primary Care Provider: Daniel Stapleton Referrals: Daniel Stapleton MD [Primary Care Provider] - 3-5 Days Activity Restrictions/Additional Instructions: Your labs, chest x-ray and both EKGs were unremarkable. There is no signs of this being cardiac chest pain. Follow-up with your primary care physician they may want to do an outpatient stress test to be safe. Disposition Disposition: Home, Self Care
[2023-01-14] MEDS: Pantoprazole Sodium 40 MG Tablet PO (09:53)
[2023-01-14] MEDS: Mag Hydrox/Al Hydrox/Simeth 30 ML UDC PO (09:53)
[2023-01-14 09:55] LABS: Anion Gap 5 (5-15); BUN 7 mg/dL (7-18); BUN/Creat Ratio 6.8 RATIO (10-20); Calcium,Total 9.5 mg/dL (8.5-10.1); Chloride 108 mmol/L (98-107); Creatinine, Serum 1.03 mg/dL (0.55-1.02); EST Glomerular Filtration Rate 59 mL/min (>60); Est Glom Filt Rate - Afr Amer 72 mL/min (>60); Estimated Creatinine Clearance 62.25 ml/min; Glucose 91 mg/dL (74-106); Potassium 4.2 mmol/L (3.5-5.1); Sodium Level 141 mmol/L (136-145); Troponin-I HS (w/2H Reflex) 10 pg/mL (3.0-54.0)
[2023-01-14 10:12] VITALS: BP 118/91; PULSE 65; RESP 18; O2SAT 96
--- NOTE | 2023-01-14 10:20 | EKG12_ITS ---
Test Reason : CP Blood Pressure : / mmHG Vent. Rate : 071 BPM Atrial Rate : 071 BPM P-R Int : 156 ms QRS Dur : 070 ms QT Int : 398 ms P-R-T Axes : 016 014 052 degrees QTc Int : 432 ms Normal sinus rhythm Normal ECG Confirmed by SOPHIA CM MD ([id number]), editor trade journal STEVEN JARRETT ([id number]) on 01/16/2023 11:21:18 AM Referred By: LOW Confirmed By:SOPHIA CM MD
[2023-01-14 11:30] LABS: Reflex Troponin-HS? (from REC) Y
[2023-01-14 12:02] LABS: Troponin-I HS 7 pg/mL (3.0-54.0)
[2023-01-14 12:23] VITALS: BP 123/84; PULSE 75
== END 2023-01-14 12:27 | disposition home or self-care (01) ==
PROVIDERS: Emergency Provider Emergency Medicine; PCP Family Medicine; Visit Provider Emergency Medicine
DX: R07.9 Chest pain, unspecified (principal); E11.9 Type 2 diabetes mellitus without complications; I10 Essential (primary) hypertension; F17.210 Nicotine dependence, cigarettes, uncomplicated; R11.0 Nausea; R42 Dizziness and giddiness
CPT/HCPCS: 71045; 80048; 84484; 85025; 93005; 99284

== ENCOUNTER → 2023-01-15 | Outpatient (CLI) | payer MEDICARE, SELFPAY ==
[2023-01-15 18:45] LABS: AST(SGOT) 25 U/L (15-37); Alanine Aminotransfer ALT/SGPT 43 U/L (13-56); Albumin, Serum 3.7 g/dL (3.2-5.0); Alkaline Phosphatase 100 U/L (45-117); Bilirubin, Direct 0.08 mg/dL (0.00-0.30); Globulin 3.1 g/dL (2.2-4.2); Protein, Total 6.8 g/dL (6.4-8.2)
== END | disposition home or self-care (01) ==
LOC: MFPLAB 16:48
PROVIDERS: PCP Family Medicine; Visit Provider Family Medicine
DX: R79.89 Other specified abnormal findings of blood chemistry (principal)
CPT/HCPCS: 36415; 80076

== ENCOUNTER 2023-01-22 10:16 | Day surgery (SDC) | payer MEDICARE, SELFPAY ==
[2023-01-22] VITALS (8 sets, daily range): BP systolic 96–127; BP diastolic 63–76; PULSE 65–78; RESP 16–20; TEMP 36.3–36.8; O2SAT 94–100; BMI 32.1
--- NOTE | 2023-01-22 | GASB_PTH ---
PATIENT: SHIREEN EDGAR LOC: EN U#:[id number] AGE/SX: 57/F ROOM: RE01/22/[address]: Dr. Ciro Mathur MD : [id number] BED: DIS: 01/22/2023 SPEC #: [id number] RECD: 01/22/23 13:12 STATUS: DONNA SIDDIQUI #: [id number] ELINA: 01/22/23 00:[address]: Ciro Mathur DEPT: SURGICAL PATHOLOGY RECD BY: Jan Real ENTERED: 01/23/23 09:13 SP TYPE: Gastric Bx OTHR DR: Dr. Daniel Stapleton MD Tissues: A - Duodenum, NOS B - Gastric mucous membrane C - Gastric mucous membrane D - Gastric mucous membrane E - Esophageal mucous membrane F - POLYP G - Stomach, NOS H - Cecum, NOS I - Cecum, NOS J - Transverse colon K - Transverse colon L - Descending colon M - Sigmoid colon biopsy N - Rectum, NOS Procedures: Special Stain Group II Surgery Specimen Level IV Alcian Blue/PAS (control) HEADER OPERATION: [place] [place] with [place] PRE-OP DIAGNOSIS: Blood in stool, diarrhea, acid reflux TISSUE SUBMITTED: A - Nodular duodenum bulb biopsy, B - Antral scar area biopsy, C - Antrum biopsy for H. pylori and path, D - Gastroesophageal junction biopsies, E - Mid esophageal nodule biopsy, F??Proximal third nodule biopsy, G - Gastritis greater curvature biopsy, H - Random cecum biopsy, I??Cecal submucosal ? lipoma/mass, J - Random transverse colon biopsy, K - Random distal transverse colon biopsy, L - Random descending colon biopsy, M - Random sigmoid colon biopsy, N - Random rectum biopsy MICROSCOPIC DIAGNOSIS A. Duodenum, biopsy: No pathologic change. B. Gastric antral scar, biopsy: Focal mucosal denudation and mild chronic inflammation with associated reactive epithelial change. C. Gastric antrum, biopsy: Chronic gastritis, moderate to severe. See comment. D. Gastroesophageal junction, biopsy: Chronic inflammation. Focal changes of reflux. No evidence of goblet cell metaplasia. See comment. E. Mid esophageal nodule, biopsy: No pathologic change. F. Proximal third nodule, biopsy: Fragments of benign squamous mucosa. No evidence of inflammation. G. Stomach, greater curvature, biopsy: Chronic gastritis, moderate to severe. H. Cecum, biopsy: No pathologic change. I. Cecal mass, biopsy: No pathologic change. See comment. J. Transverse colon, biopsy: No pathologic change. K. Distal transverse colon, biopsy: No pathologic change. L. Descending colon, biopsy: No pathologic change. M. Sigmoid colon, biopsy: No pathologic change. N. Rectum, biopsy: No pathologic change. AM:coby 01/24/2023 COMMENT C. The results of immunohistochemistry for Helicobacter pylori will be reported separately ([id number]). D. Alcian blue/PAS stain with matched control supports the above diagnosis. I. Minimal adipose tissue is noted in the submucosa. MICROSCOPIC DESCRIPTION Slides are reviewed. GROSS DESCRIPTION A - Received in fixative is one container labeled with the patient's name and designated nodular duodenal bulb biopsy. The specimen consists of one irregular fragment of light garcia soft tissue that measures 0.4 x 0.1 x 0.1 cm. The specimen is totally submitted in one cassette. B - Received in fixative is one container labeled with the patient's name and designated antral scar area biopsy. The specimen consists of multiple irregular fragments of light garcia soft tissue that in aggregate measure 1.2 x 0.2 x 0.1 cm. The specimen is totally submitted in one cassette. C - Received in fixative is one container labeled with the patient's name and designated antrum biopsy. The specimen consists of multiple irregular fragments of light garcia soft tissue that in aggregate measure 1.0 x 0.3 x 0.1 cm. The specimen is totally submitted in one cassette. D - Received in fixative is one container labeled with the patient's name and designated GE junction biopsy. The specimen consists of two irregular fragments of light garcia soft tissue that in aggregate measure 0.6 x 0.3 x 0.1 cm. The specimen is totally submitted in one cassette. E - Received in fixative is one container labeled with the patient's name and designated mid esophageal nodule biopsy. The specimen consists of one irregular fragment of light garcia soft tissue that measures 0.6 x 0.2 x 0.1 cm. The specimen is totally submitted in one cassette. F - Received in fixative is one container labeled with the patient's name and designated proximal third nodule biopsy. The specimen consists of multiple irregular fragments of light garcia soft tissue that in aggregate measure 0.8 x 0.3 x 0.1 cm. The specimen is totally submitted in one cassette. G - Received in fixative is one container labeled with the patient's name and designated gastritis greater curvature biopsy. The specimen consists of one irregular fragment of light garcia soft tissue that measures 0.4 x 0.4 x 0.1 cm. The specimen is totally submitted in one cassette. H - Received in fixative is one container labeled with the patient's name and designated random cecum biopsy. The specimen consists of one irregular fragment of light garcia soft tissue that measures 0.5 x 0.3 x 0.1 cm. The specimen is totally submitted in one cassette. I - Received in fixative is one container labeled with the patient's name and designated cecal submucosal ? lipoma/mass. The specimen consists of multiple irregular fragments of light garcia soft tissue that in aggregate measure 1.0 x 0.2 x 0.1 cm. The specimen is totally submitted in one cassette. J - Received in fixative is one container labeled with the patient's name and designated random transverse colon biopsy. The specimen consists of one irregular fragment of light garcia soft tissue that measures 0.5 x 0.3 x 0.1 cm. The specimen is totally submitted in one cassette. K - Received in fixative is one container labeled with the patient's name and designated random distal transverse colon biopsy. The specimen consists of one irregular fragment of light garcia soft tissue that measures 0.3 x 0.3 x 0.1 cm. The specimen is totally submitted in one cassette. L - Received in fixative is one container labeled with the patient's name and designated random descending colon biopsy. The specimen consists of one irregular fragment of light garcia soft tissue that measures 0.3 x 0.3 x 0.1 cm. The specimen is totally submitted in one cassette. M - Received in fixative is one container labeled with the patient's name and designated random sigmoid colon biopsy. The specimen consists of one irregular fragment of light garcia soft tissue that measures 0.4 x 0.3 x 0.1 cm. The specimen is totally submitted in one cassette. N - Received in fixative is one container labeled with the patient's name and designated random rectum biopsy. The specimen consists of one irregular fragment of light garcia soft tissue that measures 0.3 x 0.3 x 0.1 cm. The specimen is totally submitted in one cassette. / LILIANE:coby 01/23/2023 TC:3 CPT: 70862 x14, [id number]
[2023-01-22 10:57] LABS: Internal QC Validated? YES +Cl - CLEAR BKGD; Pregnancy, Urine Negative Negative
[2023-01-22] MEDS: Lactated Ringers 1,000 ML 15 ML IV ×2 (10:58→13:01)
[2023-01-22 11:25] LABS: Bedside Glucose 135 mg/dL (74-106)
--- NOTE | 2023-01-22 11:32 | PCM.HP.BLA ---
History and Physical Date of Admission: 01/22/23 Date of Service:? 01/14/23 MR#: [id number] Acct: [id number] Name:SHIREEN RICHARDSON Rep #: [id number] : 1965 ? ? Provider: Dr. Ciro Mathur MD Age/Sex:? 57/F ? ? Location: [facility] Status: Signed Intake Vital Signs ? 01/14/2309:12 01/14/2315:38 01/14/2315:40 Height 5 ft 8 in 5 ft 8 in ? Weight: ? ? 215 lb 2 oz BP ? ? 115/73 Blood Pressure Location ? ? Rt brachial Position ? ? Sitting Respiration ? ? 17 Pulse ? ? 82 Pulse Source ? ? Monitor Temp ? ? 97.9 F Temp Source ? ? Temporal Pulse Oximetry (%) ? ? 96 Oxygen Delivery Method ? ? room air Intake Visit Reasons:?COLONOSCOPY Chief Complaint: colonoscopy Is patient in pain?: No Allergies haloperidol [From Haldol] Allergy (Verified 01/14/23 15:44) Angioedema Medications fluoxetine 20 mg capsule 40 mg PO DAILY 09/10/18 [History Confirmed 01/14/23] meclizine 25 mg chewable tablet 25 mg PO PRN PRN Dizziness 09/10/18 [History Confirmed 01/14/23] lurasidone 20 mg tablet (Latuda) 60 mg PO DAILY 12/16/18 [History Confirmed 01/14/23] meloxicam 7.5 mg tablet 7.5 mg PO DAILY 05/04/19 [History Confirmed 01/14/23] topiramate 25 mg tablet 200 mg PO DAILY 05/04/19 [History Confirmed 01/14/23] furosemide 20 mg tablet 20 mg PO DAILY 03/12/22 [History Confirmed 01/14/23] zolpidem 5 mg tablet 5 mg PO QHS 03/12/22 [History Confirmed 01/14/23] duloxetine 30 mg capsule,delayed release 30 mg PO DAILY #30 caps 07/20/22 [Rx] ferrous sulfate 325 mg (65 mg iron) tablet (FeroSul) 325 mg PO DAILY 01/14/23 [History Confirmed 01/14/23] potassium chloride 20 mEq tablet,extended release(part/cryst) 20 meq PO DAILY 01/14/23 [History Confirmed 01/14/23] [facility] Medical History? Abnormal mammogram Arthritis Back problem Depression with anxiety Occipital neuralgia Seizures Surgical History? History of bilateral breast reduction surgery History of shoulder surgery Previous back surgery Family History? Mother Asthma Arthritis Diabetes Hypertension High cholesterolUncle Colon cancer CVA (cerebral vascular accident)Aunt Cancer ?? ? leukemia Heart disease Social History? Smoking Status:? Current every day smoker tobacco type: cigarettes alcohol intake:? never substance use type:? does not use HPI HPI HPI: ?Patient is a 57-year-old female who presents for need to schedule diagnostic colonoscopy secondary to complaints of new diarrhea and alternating melena/hematochezia with positive fecal occult blood testing.? They are referred for surgical consultation from Dr. Stapleton.? Patient has had prior colonoscopy approximately 15 years ago (2007).? Mrs. Bryant reports that she was found to have a benign polyp and told to assume standard colon screening from that point on. Patient has no personal history of colon cancer, premature abdominal relief, or diverticulitis. They describe their bowel habits as normally fraught with constipation, however she has noticed looser stools for the approximately the last 3 months.? They have approximately 3 per day now without significant straining.? They have noticed recent dark tarry stools and occasional spotting of bright red blood on toilet tissue.? Patient initially estimates this changed to be a much shorter time course, but when I call to account the fact that she had an initial referral in May 2022, she admits that her problem started at least 1 month before that time (total of least 9 months ago).? She states that historically with her constipation she would require an excessive amount of laxatives just to have a bowel movement.? She notes that in association with the current bowel movements she feels some left-sided abdominal pain.? She notes that she was just in to see Dr. Landeros for this issue.? She describes this pain as a charley horse over her abdomen. Patient has a family history of colon cancer in her maternal cousin (she estimates this relative was diagnosed in his 50s).? She denies any knowledge of a family history of diverticulitis or inflammatory bowel disease.? She adds that her mother gets stomach bacteria and requires antibiotics for this issue.? ? The patient's weight is not stable and she reports an 8 pound intentional weight loss over the last 1 month The patient is not prescribed anticoagulants/blood thinners. Relevant prior abdominal surgical history includes: Noncontributory Patient also does have a significant history of GERD and heartburn.? To add to this she reports a personal history of H. pylori infection which resulted in substantial weight loss and required 2 weeks of antibiotics to clear.? She reports that her symptoms of heartburn and reflux were previously more severe, but she does not experience these now as much.? Still, she reports symptoms of both of these every day.? Because of this she has prescribed omeprazole 20 mg 3 times daily.? She notes her most distressing symptoms involve reflux and an upset stomach.? Detailing the latter she reports nausea all the time and vomiting once in a while that is spontaneous in its appearance and has occurred both at work and at home.? She notes bloating symptom once in a while.? She states that the symptoms are worse in response to spicy foods and she therefore limits their intake.? She does admit to drinking a lot of coffee and reports her consumption that 2 cups/day (which is significantly decreased from her previous high).? She has no previous history of an EGD.? She has never been told she has a hiatal hernia. Lastly regarding her general health, Mrs. Bryant was seen earlier today in our ER for complaints of chest pain.? Her significant other, who accompanies her, questions whether these complaints could be related to her GI function rather than cardiac related as her cardiac enzymes and cardiovascular work-up in the ER were negative.? She also confirms a history of obstructive sleep apnea, but denies use of CPAP. ROS General General: Yes weight change and fatigue; No appetite, colon cancer, breast cancer or weakness HEENT HEENT: No difficulty swallowing, eye injury, eye surgery, swollen glands or hoarseness Endo Endocrine: Yes diabetes mellitus; No thyroid disease, thyroid cancer, Hair loss, heat intolerance or cold intolerance Skin Skin: No rash or changing moles Musc Musculoskeletal: Yes back problems and arthritis; No rheumatoid arthritis, gout or joint pain Cardio Cardiovascular: Yes high blood pressure; No murmur, pacemaker, heart disease, atrial fibrillation, heart attack, heart stent, palpitations, shortness of breat with exertion or chest pain Psych Psychiatric: Yes depression and anxiety; No hearing voices Resp Respiratory: Yes shortness of breath, Yes sleep apnea, No cough, No COPD, No asthma, No emphysema and No wheezing Gastro Gastrointestinal: Yes abdominal pain, Yes nausea or vomiting, Yes diarrhea, No constipation, Yes blood in stool, Yes acid reflux, No hemorrhoids, No ulcers, No gallbladder problem and Yes black,tarry stools Jack Hematologic: No blood thinners, No blood disorders, Yes bleeding, No anemia and No blood clots Neuro Neurologic: No system reviewed and no additional complaints, except as documented, No as per HPI, No abnormal gait, No abnormal hearing, No abnormal movements, No abnormal speech, No behavioral changes, No burning sensations, No confusion, No convulsions, No disequilibrium, No dizziness, No localized weakness, No frequent falls, No headache(s), No lack of coordination, No loss of vision, No memory loss, Yes numbness, No other visual disturbances, No radicular pain, No restless legs, No sensory deficit, No syncope, Yes tingling, No tremor(s), No weakness and No other Exam Const General: cooperative and anxious Resp Effort & Inspection: normal respiratory effort Auscultation: clear to auscultation bilaterally Cardio Rate: regular rate Rhythm: regular rhythm GI Other: Nondistended, no scars.? Soft and mildly tender to palpation over the left lower quadrant?otherwise exam unremarkable with palpation x4 quadrants. Assessment and Plan Assessment and Plan (1) Blood in stool: ?Status:?Chronic ?Comment: Is a 57-year-old female who presents, initially, on referral for positive fecal occult blood testing.? Patient reports this issue first came to light approximately March 2022.? She continues to note what she describes as tarry stools with occasional spotting of bright red blood on the toilet tissue.? While she does have a history of colonoscopy, it has now been 15 years since her last exam.? She reports finding of benign polyps with this initial scope.? Given her more recent history, I do believe a diagnostic colonoscopy has been ordered.? Patient and her significant other appear very concerned this could represent a possible cancer.? Patient does have a maternal cousin with a diagnosis of early colon cancer.? I am encouraged that patient's most recent hemoglobin?obtained today?is actually elevated at 15.9 mg/dL. ?Plan: ? Plan will be to complete diagnostic colonoscopy on first mutually agreeable date under local MAC.? Pre-procedure prep discussed and paper instructions provided.? Patient is also made aware that she will need to have a jukebox route driver with her the day of the procedure. (2) Diarrhea: ?Status:?Acute ?Comment: In addition to the above complaints of possible melena, positive fecal occult blood testing, and occasional bright red blood per rectum, patient reports a rather recent trend towards diarrhea with her bowel movements.? Previously she suffered from constipation.? While this could be consistent with her diagnosis of irritable bowel syndrome, I remain suspicious for possible infectious cause versus microscopic colitis.? Beyond the planned colonoscopy for her reports of blood in her stool, I would like to proceed with an enteric pathogen panel and markers for lower GI inflammatory conditions.? Concerning her colonoscopy, will plan for random colon biopsies to evaluate for the possibility of microscopic colitis. ?Plan: ? Stool studies to include enteric pathogen panel, stool lactoferrin, calprotectin ? Plan for random colon biopsies during colonoscopy as planned above (3) Acid reflux: ?Status:?Chronic ?Comment: Patient with a history of chronic reflux and heartburn.? She states that despite use of omeprazole 20 mg 3 times daily, she still experiences daily symptoms of heartburn and reflux.? She has never previously undergone EGD evaluation.? I did review CT imaging from 2020, I do not find any clear evidence of hiatal hernia with that imaging.? Given her refractory symptoms (although she does admit improvement), I find it reasonable to pursue simultaneous EGD with colonoscopy as discussed above.? Patient does report a history of H. pylori positivity, so I will plan to perform antral biopsies to exclude recurrence/persistence of this diagnosis as well. ?Plan: ? Diagnostic EGD under local MAC?concurrent with colonoscopy planned above ? Plan to obtain an empiric H. pylori biopsies given patient's history with EGD ? ? ? Orders: Orders Calprotectin, Stool Today R19.7 - Diarrhea, unspecified ? Stool Lactoferrin/WBC Today K58.9 - Irritable bowel syndrome without diarrhea I have examined the patient and the H&P has been reviewed. There are no clinical changes since date of exam. Patient states that her abdominal symptoms have remained stable. She confirms she completed a prep and that her output is now clear yellow. She states that she is a little bit crampy when asked if there is any abdominal discomfort. Plan to proceed for upper and lower endoscopy as discussed above with biopsies for H. pylori given refractory GERD symptoms and biopsies for rule out colitis given reports of chronic diarrhea/possible bleeding.
--- NOTE | 2023-01-22 12:00 | IMM_PTH ---
PATIENT: SHIREEN EDGAR LOC: EN U#:[id number] AGE/SX: 57/F ROOM: RE01/22/[address]: Dr. Ciro Mathur MD : 1965 BED: DIS: 01/22/2023 SPEC #: [id number] RECD: 01/23/23 13:46 STATUS: DONNA RETariq #: [id number] ELINA: 01/22/23 12:[address]: Ciro Mathur DEPT: IMMUNOHISTOCHEMISTRY RECD BY: Ginger Andrew ENTERED: 01/23/23 13:47 SP TYPE: IMMUNO OTHR DR: Dr. Daniel Stapleton MD Tissues: C - Stomach, NOS Procedures: H Pylori (initial) PHYSICIAN & INSTITUTION [place] [id number] SPECIMEN INFORMATION: Tissue Source: C ? Antrum biopsy Clinical Info: Blood in stool, diarrhea, acid reflux Specimen Number: [id number] CPT code: 15475 METHODOLOGY: Deparaffinized sections of prefer/formalin-fixed tissue or PAP/DQ stained slides are incubated with monoclonal/polyclonal antibodies/oligonucleotide probes. Localization is made via biotin free immunoperoxidase method. Appropriate controls are performed and reacted as expected. Results on target cell population are indicated in the following table: RESULTS: ANTIBODY / CLONE RESULT Block C H Pylori (polyclonal) positive These tests were developed and their performance characteristics determined by [facility]. They may not have been cleared or approved by the U.S. Food and Drug Administration. The FDA has determined that such clearance or approval is not necessary. The above immunohistochemical/dualISH markers are ordered and reviewed by the Pathologist. INTERPRETATION: C. Antrum, biopsy: Positive for abundant Helicobacter pylori organisms. AM:coby 01/24/2023
--- NOTE | 2023-01-22 13:23 | OP.EGD_ITS ---
Patient Name: Sandra Bryant Procedure Date: 01/22/2023 11:26 AM Date of : 1965 Age: 57 Procedure: Upper GI endoscopy Indications: Suspected gastro-esophageal reflux disease, Previously treated for Helicobacter pylori Providers: Ciro Mathur MD Referring MD: Daniel Stapleton MD Medicines: See the Anesthesia note for documentation of the administered medications Patient Profile: Refer to note in patient chart for documentation of history and physical. Patient has symptoms of chronic heartburn. Complications: No immediate complications. Estimated blood loss: Minimal. Procedure: Pre-Anesthesia Assessment: - The heart rate, respiratory rate, oxygen saturations, blood pressure, adequacy of pulmonary ventilation, and response to care were monitored throughout the procedure. After obtaining informed consent, the endoscope was passed under direct vision. Throughout the procedure, the patient's blood pressure, pulse, and oxygen saturations were monitored continuously. The Colonoscope was introduced through the mouth, and advanced to the second part of duodenum. The upper GI endoscopy was accomplished without difficulty. The patient tolerated the procedure fairly well. Scope In: 11:36:49 AM Scope Out: 12:06:49 PM Total Procedure Duration Time 0 hours 30 minutes 0 seconds Findings: A few 5 mm mucosal nodules with a localized distribution were found in the duodenal bulb. Biopsies were taken with a cold forceps for histology. Estimated blood loss was minimal. The gastric antrum was normal. Biopsies were taken with a cold forceps for Helicobacter pylori cultures. Estimated blood loss was minimal. scar[Extent] mild inflammation [Hemorrhage] characterized by sca was found on the greater curvature of the gastric antrum. Biopsies were taken with a cold forceps for histology. Estimated blood loss was minimal. The cardia and gastric fundus were normal on retroflexion. The Z-line was irregular and was found 40 cm from the incisors. Biopsies were taken with a cold forceps for histology. Estimated blood loss was minimal. A few 5 mm mucosal nodules with a localized distribution were found in the middle third of the esophagus. Biopsies were taken with a cold forceps for histology. Estimated blood loss was minimal. A few 5 mm mucosal nodules with a localized distribution were found in the upper third of the esophagus, 20 cm from the incisors. Biopsies were taken with a cold forceps for histology. Estimated blood loss was minimal. Scattered moderate inflammation characterized by erythema, granularity and linear erosions was found on the greater curvature of the stomach. Biopsies were taken with a cold forceps for histology. Impression: - Mucosal nodule found in the duodenum. Biopsied. - Normal antrum. Biopsied. - Chronic gastritis. Biopsied. - Z-line irregular, 40 cm from the incisors. Biopsied. - Mucosal nodule found in the esophagus. Biopsied. - Mucosal nodule found in the esophagus. Biopsied. - Chronic gastritis. Biopsied. Recommendation: - Discharge patient to home (via wheelchair). - Resume previous diet today. - Use sucralfate suspension 1 gram PO BID today. - Await pathology results. - Telephone my office for pathology results in 1 week. - Continue present medications. Procedure Code(s): --- Professional --- 22452, Esophagogastroduodenoscopy, flexible, transoral; with biopsy, single or multiple Diagnosis Code(s): --- Professional --- K31.89, Other diseases of stomach and duodenum K29.50, Unspecified chronic gastritis without bleeding K22.8, Other specified diseases of esophagus CPT copyright 2017 [employer]. All rights reserved. The codes documented in this report are preliminary and upon patient registration supervisor review may be revised to meet current compliance requirements. Ciro Mathur MD 01/22/2023 1:23:29 PM This report has been signed electronically. Number of Addenda: 0 Note Initiated On: 01/22/2023 11:26 AM
--- NOTE | 2023-01-22 13:24 | OP.CCLET_ITS ---
01/22/2023 Daniel Stapleton MD [address] [id number] Re : Upper GI endoscopy procedure for Sandra Bryant Dear Dr. Stapleton This procedure was performed on Sunday, January 22, 2023. My impressions and recommendations are as follows: Impressions : - Mucosal nodule found in the duodenum. Biopsied. - Normal antrum. Biopsied. - Chronic gastritis. Biopsied. - Z-line irregular, 40 cm from the incisors. Biopsied. - Mucosal nodule found in the esophagus. Biopsied. - Mucosal nodule found in the esophagus. Biopsied. - Chronic gastritis. Biopsied. Recommendations : - Discharge patient to home (via wheelchair). - Resume previous diet today. - Use sucralfate suspension 1 gram PO BID today. - Await pathology results. - Telephone my office for pathology results in 1 week. - Continue present medications. My findings are described in the full procedure note, which is enclosed. If I can be of further assistance, please feel free to contact me at Doctor phone number(s): , Work: . Sincerely, Ciro Mathur MD 01/22/2023 1:23:29 PM This report has been signed electronically.
--- NOTE | 2023-01-22 13:29 | SUR.PHASEI ---
Addendum entered by Kiara Vela 01/22/23 13:32: ADD: WHEN BARELY STARTED ADMINISTERING MORPHINE PER ORDER, PATIENT SUDDENLY SETTLED DOWN AND STOPPED C/O PAIN, BUT ASKED IF SHE COULD GET A DOSE OF GABAPENTIN PRIOR TO D/C HOME. STATES SHE HAS PRESCRIPTIONS AT HOME. Original Note: C/O SEVERE PAIN RIGHT HIP WHICH IS CHRONIC, STATES SHE DID NOT TAKE HER GABAPENTIN THIS MORNING, ASKING FOR MORPHINE. NOTIFIED DR CHRISTINE.
--- NOTE | 2023-01-22 13:34 | OP.CCLET_ITS ---
01/22/2023 Daniel Stapleton MD [address] [id number] Re : Colonoscopy procedure for Sandra Bryant Dear Dr. Stapleton This procedure was performed on Sunday, January 22, 2023. My impressions and recommendations are as follows: Impressions : - Preparation of the colon was poor. - Medium-sized lipoma in the cecum. Biopsied. - The rectum, sigmoid colon, descending colon and transverse colon are normal. - The distal rectum and anal verge are normal on retroflexion view. - Six biopsies were obtained in the rectum, in the sigmoid colon, in the descending colon, in the proximal transverse colon, in the distal transverse colon and in the cecum. Recommendations : - Discharge patient to home (via wheelchair). - Resume previous diet today. - Continue present medications. - Await pathology results. - Repeat colonoscopy date to be determined after pending pathology results are reviewed for surveillance based on pathology results. - Telephone my office for pathology results in 1 week. My findings are described in the full procedure note, which is enclosed. If I can be of further assistance, please feel free to contact me at Doctor phone number(s): , Work: . Sincerely, Ciro Mathur MD 01/22/2023 1:33:22 PM This report has been signed electronically.
--- NOTE | 2023-01-22 13:34 | OP.COLON_ITS ---
Patient Name: Sandra Bryant Procedure Date: 01/22/2023 12:07 PM Date of : 1965 Age: 57 Procedure: Colonoscopy Indications: Clinically significant diarrhea of unexplained origin, Melena Providers: Ciro Mathur MD Referring MD: Daniel Stapleton MD Medicines: See the Anesthesia note for documentation of the administered medications Patient Profile: Refer to note in patient chart for documentation of history and physical. Patient has symptoms of chronic heartburn. Last Colonoscopy: more than 10 years ago. Complications: No immediate complications. Estimated blood loss: Minimal. Procedure: Pre-Anesthesia Assessment: - The heart rate, respiratory rate, oxygen saturations, blood pressure, adequacy of pulmonary ventilation, and response to care were monitored throughout the procedure. - The heart rate, respiratory rate, oxygen saturations, blood pressure, adequacy of pulmonary ventilation, and response to care were monitored throughout the procedure. After I obtained informed consent, the scope was passed under direct vision. Throughout the procedure, the patient's blood pressure, pulse, and oxygen saturations were monitored continuously. The Colonoscope was introduced through the anus and advanced to the cecum, identified by the appendiceal orifice, ileocecal valve and palpation. The colonoscopy was technically difficult and complex due to poor bowel prep, a redundant colon and significant looping. Successful completion of the procedure was aided by using manual pressure and lavage. The patient tolerated the procedure fairly well. The quality of the bowel preparation was poor. Scope In: 12:08:36 PM Scope Withdrawal Time 0 hours 27 minutes 20 seconds Scope Out: 1:02:40 PM Total Procedure Duration Time 0 hours 54 minutes 4 seconds Findings: There was a medium-sized lipoma, 25 mm in diameter, in the cecum. Biopsies were taken with a cold forceps for histology. Estimated blood loss was minimal. The rectum, sigmoid colon, descending colon and transverse colon appeared normal. Six biopsies were obtained with cold forceps for evaluation of microscopic colitis randomly in the rectum, in the sigmoid colon, in the descending colon, in the proximal transverse colon, in the distal transverse colon and in the cecum. Estimated blood loss was minimal. The retroflexed view of the distal rectum and anal verge was normal and showed no anal or rectal abnormalities. No biopsies or other specimens were collected for this exam. Impression: - Preparation of the colon was poor. - Medium-sized lipoma in the cecum. Biopsied. - The rectum, sigmoid colon, descending colon and transverse colon are normal. - The distal rectum and anal verge are normal on retroflexion view. - Six biopsies were obtained in the rectum, in the sigmoid colon, in the descending colon, in the proximal transverse colon, in the distal transverse colon and in the cecum. Recommendation: - Discharge patient to home (via wheelchair). - Resume previous diet today. - Continue present medications. - Await pathology results. - Repeat colonoscopy date to be determined after pending pathology results are reviewed for surveillance based on pathology results. - Telephone my office for pathology results in 1 week. Procedure Code(s): --- Professional --- 19620, Colonoscopy, flexible; with biopsy, single or multiple Diagnosis Code(s): --- Professional --- D17.5, Benign lipomatous neoplasm of intra-abdominal organs R19.7, Diarrhea, unspecified K92.1, Melena (includes Hematochezia) CPT copyright 2017 [employer]. All rights reserved. The codes documented in this report are preliminary and upon animal care provider review may be revised to meet current compliance requirements. Ciro Mathur MD 01/22/2023 1:33:22 PM This report has been signed electronically. Number of Addenda: 0 Note Initiated On: 01/22/2023 12:07 PM
[2023-01-22] MEDS: Gabapentin 600 MG Tablet PO (13:54)
== END 2023-01-22 14:22 | disposition home or self-care (01) ==
LOC: EN 10:18 → AC 10:22
PROVIDERS: Anesthesiology; PCP Family Medicine; Referring Provider Family Medicine; Visit Provider Surgery
PROC: 0DJD8ZZ Inspection of Lower Intestinal Tract, Via Natural or Artificial Opening Endoscopic (ICD-10-PCS; CPT 45378; principal; 2023-01-22 11:55)
DX: K29.50 Unspecified chronic gastritis without bleeding (principal); Z80.0 Family history of malignant neoplasm of digestive organs; K21.9 Gastro-esophageal reflux disease without esophagitis; R19.7 Diarrhea, unspecified; K31.89 Other diseases of stomach and duodenum; K22.89 Other specified disease of esophagus; D17.5 Benign lipomatous neoplasm of intra-abdominal organs; K92.1 Melena
CPT/HCPCS: 43239; 45380; 81025; 82962; 88305; 88313; 88342; J7120; J2405

== ENCOUNTER → 2023-02-07 | Outpatient (CLI) | payer MEDICARE, SELFPAY ==
[2023-02-07 17:53] LABS: Absolute Lymphocyte Count 2.17 X10^3/uL (0.83-4.51); Basophil# 0.01 X10^3/uL; Basophil% 0.1 % (0-1); Eosinophil# 0.22 X10^3/uL; Eosinophils% 2.8 % (0-5); Hematocrit 46.2 % (37-47); Hemoglobin 15.3 g/dL (12.0-15.0); Lymphocyte # 2.17 X10^3/ul (0.83-4.51); Mean Corp Hgb Conc 33.1 g/dL (32-36); Mean Corpuscular Volume 93.7 fL (81-99); Mean Platelet Vol. 11.2 fl (6.2-12.0); Monocyte% 3.9 % (0-10); NRBC Flagged by Analyzer 0 % (0-5); Neutrophil # 5.02 X10^3/uL (2.7-7.7); Neutrophil % 64.9 % (47-70); Platelet Count 349 K/mm3 (150-450); RBC Distribution Width CV 14.2 % (11.6-14.6); RBC Distribution Width SD 49.1 fl (35.1-43.9); Red Blood Count 4.93 M/mm3 (4.2-5.4); White Blood Count 7.7 K/mm3 (4.4-11.0)
[2023-02-07 18:02] LABS: AST(SGOT) 26 U/L (15-37); Alanine Aminotransfer ALT/SGPT 34 U/L (13-56); Albumin, Serum 3.2 g/dL (3.2-5.0); Alkaline Phosphatase 152 U/L (45-117); Anion Gap 9 (5-15); BUN 10 mg/dL (7-18); BUN/Creat Ratio 11.5 RATIO (10-20); Calcium,Total 9.4 mg/dL (8.5-10.1); Chloride 106 mmol/L (98-107); Creatinine, Serum 0.87 mg/dL (0.55-1.02); EST Glomerular Filtration Rate 72 mL/min (>60); Est Glom Filt Rate - Afr Amer 87 mL/min (>60); Globulin 3.2 g/dL (2.2-4.2); Glucose 120 mg/dL (74-106); Potassium 3.9 mmol/L (3.5-5.1); Protein, Total 6.4 g/dL (6.4-8.2); Sodium Level 142 mmol/L (136-145)
== END | disposition home or self-care (01) ==
LOC: MFPLAB 15:15
PROVIDERS: PCP Family Medicine; Referring Provider Family Medicine; Visit Provider Family Medicine
DX: R19.7 Diarrhea, unspecified (principal)
CPT/HCPCS: 36415; 80053; 85025

== ENCOUNTER → 2023-02-10 | Outpatient (CLI) | payer MEDICARE, SELFPAY | END | disposition home or self-care (01) | PROVIDERS: PCP Family Medicine; Visit Provider Family Medicine | DX: R19.7 Diarrhea, unspecified (principal) | CPT/HCPCS: 87493 ==

== ENCOUNTER → 2023-02-26 | Outpatient (CLI) | payer MEDICARE, SELFPAY ==
[2023-02-26 14:08] LABS: Microalbumin,Random Urine 25.7 mg/L (NO RANGE EST.); Microalbumin:Creatinine Ratio 53.1 mg/g CRE (<30 mg/g CRE)
[2023-02-26 14:22] LABS: Anion Gap 6 (5-15); BUN 6 mg/dL (7-18); BUN/Creat Ratio 6.7 RATIO (10-20); Calcium,Total 9.3 mg/dL (8.5-10.1); Chloride 105 mmol/L (98-107); Cholesterol 233 mg/dL (200); Creatinine, Serum 0.89 mg/dL (0.55-1.02); EST Glomerular Filtration Rate 70 mL/min (>60); Est Glom Filt Rate - Afr Amer 84 mL/min (>60); Glucose 100 mg/dL (74-106); High Density Lipoprotein 46 mg/dL; Potassium 4.3 mmol/L (3.5-5.1); Sodium Level 138 mmol/L (136-145); Triglycerides 181 mg/dL; Very Low Density Lipoprotein 36 mg/dL (5-40)
== END | disposition home or self-care (01) ==
LOC: MFPLAB 11:54
PROVIDERS: PCP Family Medicine; Referring Provider Family Medicine; Visit Provider Family Medicine
DX: E11.9 Type 2 diabetes mellitus without complications (principal)
CPT/HCPCS: 36415; 80048; 80061; 82043; 82570

== ENCOUNTER → 2023-03-19 | Outpatient (CLI) | payer MEDICARE, SELFPAY ==
[2023-03-19 15:38] LABS: Hematocrit 45.9 % (37-47); Hemoglobin 14.7 g/dL (12.0-15.0); Mean Corpuscular Hgb 30.9 pg (27.0-32.0); Mean Corpuscular Volume 96.4 fL (81-99); Mean Platelet Vol. 11.5 fl (6.2-12.0); Platelet Count 320 K/mm3 (150-450); RBC Distribution Width CV 14.3 % (11.6-14.6); RBC Distribution Width SD 50.9 fl (35.1-43.9); Red Blood Count 4.76 M/mm3 (4.2-5.4); White Blood Count 7.8 K/mm3 (4.4-11.0)
[2023-03-19 16:25] LABS: Vitamin B12 299 pg/mL (211-911)
[2023-03-19 16:39] LABS: Hemoglobin A1c 5.7 % (3.8-5.6)
[2023-03-19 16:53] LABS: ALB/GLOB Ratio 1.1 RATIO (0.9-2.4); AST(SGOT) 26 U/L (15-37); Alanine Aminotransfer ALT/SGPT 42 U/L (13-56); Albumin, Serum 3.8 g/dL (3.2-5.0); Alkaline Phosphatase 114 U/L (45-117); Anion Gap 5 (5-15); BUN 11 mg/dL (7-18); BUN/Creat Ratio 13.3 RATIO (10-20); Calcium,Total 9.1 mg/dL (8.5-10.1); Chloride 112 mmol/L (98-107); Creatinine, Serum 0.82 mg/dL (0.55-1.02); EST Glomerular Filtration Rate 76 mL/min (>60); Est Glom Filt Rate - Afr Amer 92 mL/min (>60); Ferritin 124 ng/mL (8-252); Globulin 3.5 g/dL (2.2-4.2); Glucose 101 mg/dL (74-106); Iron 83 ug/dL (50-170); Potassium 4.1 mmol/L (3.5-5.1); Protein, Total 7.3 g/dL (6.4-8.2); Sodium Level 138 mmol/L (136-145); Thyroid Stim Hormone (TSH) 1.21 uIU/mL (0.358-3.74)
[2023-03-24 14:08] LABS: Free Kappa Light Chains 13.9 mg/L (3.3-19.4); Vitamin B1, Thiamine 135.1 nmol/L (66.5-200.0)
== END | disposition home or self-care (01) ==
LOC: MTLAB 11:58
PROVIDERS: PCP Family Medicine; Referring Provider Psychiatry & Neurology Neurology; Visit Provider Psychiatry & Neurology Neurology
DX: M51.26 Other intervertebral disc displacement, lumbar region (principal); E11.49 Type 2 diabetes mellitus with other diabetic neurological complication; Z86.2 Personal history of diseases of the blood and blood-forming organs and certain disorders involving the immune mechanism; R19.7 Diarrhea, unspecified; G62.9 Polyneuropathy, unspecified
CPT/HCPCS: 36415; 80053; 82607; 82728; 82746; 83036; 83540; 83883; 84425; 84443; 85027

== ENCOUNTER → 2023-04-02 | Outpatient (CLI) | payer MEDICARE, SELFPAY ==
[2023-04-04 06:09] LABS: H. Pylori Antibody (IgG) 7.06 (0.00-0.79)
[2023-04-05 15:08] LABS: ANTINUCLEAR ANTIBODIES DIRECT Negative (Negative); Vitamin D 1,25-Dihydroxy 72.4 pg/mL (24.8-81.5)
[2023-04-07 20:07] LABS: Topiramate < 1.5 ug/mL (2.0-25.0)
== END | disposition home or self-care (01) ==
LOC: MFPLAB 14:59
PROVIDERS: Psychiatry & Neurology Neurology; PCP Family Medicine; Visit Provider Family Medicine
DX: R11.2 Nausea with vomiting, unspecified (principal); F31.9 Bipolar disorder, unspecified; E55.9 Vitamin D deficiency, unspecified; M79.10 Myalgia, unspecified site; G62.9 Polyneuropathy, unspecified
CPT/HCPCS: 36415; 80201; 82140; 82652; 83735; 86038; 86225; 86235; 86677

== ENCOUNTER 2023-04-12 14:33 | Emergency (ER) | payer MEDICARE, SELFPAY ==
[2023-04-12 14:34] VITALS: BP 107/63; PULSE 70; RESP 14; TEMP 36; O2SAT 98; BMI 31.4
--- NOTE | 2023-04-12 14:56 | ED.VIS.BACK ---
HPI History of Present Illness Chief Complaint: Back Informant: patient and spouse/S.O. Narrative Narrative: Nontraumatic thoracic pain 4 days worse with movement. 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 History of degenerative changes of the lower back/had [address] Burk in [place]. Last time in 2019. She has history of scoliosis. She seen Dr. Carrillo Cantu. She has tried [id number] medicines and muscle relaxers with no relief. Denies pain that radiates around into her chest. Denies trouble ambulating denies any loss of bowel or bladder control. [facility] Medical History Abnormal mammogram Arthritis Back pain Bipolar disorder Chest pain CPAP (continuous positive airway pressure) dependence Depression with anxiety Diabetes Diarrhea Dietary restriction Gastric reflux Herniated disc, cervical History of edema History of pain when walking History of renal disease Hypertension Leg cramps Low iron Neuropathy Occipital neuralgia Pain Scoliosis Seizures Shortness of breath on exertion Smoker Spinal stenosis Syncope Home Medications fluoxetine 20 mg capsule 40 mg PO DAILY 09/10/18 [History Last Taken Unknown] meclizine 25 mg chewable tablet 25 mg PO PRN PRN Dizziness 09/10/18 [History Last Taken Unknown] lurasidone 20 mg tablet (Latuda) 60 mg PO DAILY 12/16/18 [History Last Taken Unknown] meloxicam 7.5 mg tablet 7.5 mg PO DAILY 05/04/19 [History Last Taken Unknown] topiramate 25 mg tablet 200 mg PO DAILY 05/04/19 [History Last Taken Unknown] furosemide 20 mg tablet 20 mg PO DAILY 03/12/22 [History Last Taken Unknown] zolpidem 5 mg tablet 5 mg PO QHS 03/12/22 [History Last Taken Unknown] ferrous sulfate 325 mg (65 mg iron) tablet (FeroSul) 325 mg PO BID 01/14/23 [History Last Taken Unknown] potassium chloride 20 mEq tablet,extended release(part/cryst) 20 meq PO DAILY 01/14/23 [History Last Taken Unknown] dicyclomine 20 mg tablet 20 mg PO TID 01/17/23 [History Last Taken Unknown] lisinopril 20 mg tablet 20 mg PO BID 01/17/23 [History Last Taken Unknown] metformin 1,000 mg tablet 1,000 mg PO BID 01/17/23 [History Last Taken Unknown] sucralfate 100 mg/mL oral suspension (Carafate) 10 ml PO BID #400 mL 01/22/23 [Rx Last Taken Unknown] ondansetron 4 mg disintegrating tablet 4 mg PO Q6H PRN nausea and vomiting #20 tabs 01/29/23 [Rx Last Taken Unknown] baclofen 10 mg tablet 10 mg PO TID PRN muscle spasm/pain #90 tabs 03/19/23 [Rx Last Taken Unknown] gabapentin 600 mg tablet 600 mg PO BID 03/19/23 [History Last Taken Unknown] hydrocodone-acetaminophen 5-325mg 5mg-325mg 1 tab PO BID PRN 03/19/23 [History Last Taken Unknown] linaclotide 145 mcg capsule (Linzess) 145 mcg PO DAILY 03/19/23 [History Last Taken Unknown] oxcarbazepine 150 mg tablet 150 mg PO BID #60 tabs 03/19/23 [Rx Last Taken Unknown] cyclobenzaprine 10 mg tablet 10 mg PO TID PRN Muscle Spasm #20 TABLETS 04/12/23 [Rx Last Taken Unknown] meloxicam 7.5 mg tablet 7.5 mg PO DAILY #30 tabs 04/12/23 [Rx Last Taken Unknown] Allergy/AdvReac Type Severity Reaction Status Date / Time haloperidol [From Haldol] Allergy Severe Angioedema Verified 04/12/23 14:34 Family History Mother Asthma Arthritis Diabetes Hypertension High cholesterol Uncle Colon cancer CVA (cerebral vascular accident) Aunt Cancer leukemia Heart disease Surgical History History of bilateral breast reduction surgery History of carpal tunnel surgery of left wrist History of carpal tunnel surgery of right wrist History of lumbar laminectomy History of shoulder surgery Hx of colonoscopy Social History Smoking Status: Current every day smoker tobacco type: cigarettes second hand exposure: No alcohol intake: never substance use type: does not use what type of physical activity do you participate in: none seatbelt use: always ROS ROS ED Constitutional Constitutional ED: Denies chills, fever(s) or sweats Eyes Eyes: Denies change in vision ENT ENT ED: Denies dysphagia or sore throat Cardiovascular Cardiovascular: Denies chest pain, leg edema, palpitations or racing heartbeat Respiratory/Chest Respiratory/Chest: Denies cough, dyspnea or dyspnea on exertion Gastrointestinal Gastrointestinal: Denies abdominal pain, diarrhea, nausea or vomiting Genitourinary Genitourinary ED: Denies dysuria, hematuria or urinary frequency Musculoskeletal Musculoskeletal: Reports back pain; Denies extremity pain or neck pain Integumentary Denies rash or wounds Neurologic Neurologic: Denies headache(s), paresthesias or weakness EXAM Physical Exam Const Vital Signs: 04/12/23 14:34 Temperature 96.8 F L Temperature Source Temporal Pulse Rate 70 Respiratory Rate 14 Blood Pressure 107/63 Blood Pressure Mean 77 Pulse Ox 98 Oxygen Delivery Method Room Air Positive well nourished and well developed General Appearance ED: well developed and NAD HEENT Reports moist mucous membranes normocephalic and atraumatic Eyes PERRL, EOMs intact bilaterally and conjunctivae normal General Eye ED: Yes normal appearance of both eyes Neck no lymphadenopathy and supple General: Negative for tenderness Chest Wall Chest: Negative for tenderness Resp normal respiratory effort and normal air movement Effort and Inspection: symmetric chest movement; Negative for respiratory distress Cardio regular rate, regular rhythm and no murmurs Peripheral Pulses: pulses 2+ throughout GI normal to inspection, nondistended, normoactive bowel sounds and non-tender Palpation: Negative for guarding or rebound tenderness present Back/Spine no CVA tenderness Back/Spine Narrative: Tender palpation midline thoracic T9-T10 region, no step-offs. No erythema. Extremity normal to inspection General Extremety ED: Negative for edema or tenderness General Extremity: Negative for edema Neuro oriented x3 and no sensory deficits noted Sensorium / Orientation: awake and alert Skin no rashes or lesions noted and no wounds MDM MDM MDM Narrative Medical decision making narrative: Interventions / MDM: Differential diagnosis: Thoracic compression fracture, degenerative change thoracic spine Diagnosis considered but do not suspect: N/A My EKG interpretation: N/A Imaging independently reviewed and interpreted by myself: 3 view thoracic x-ray degenerative changes narrowing of the disc spaces. No fractures. Also read by radiology. External documents reviewed: N/A Test considered but not ordered:N/A ED course: Uncomfortable history of morphine Toradol IM. No radicular symptoms x-rays obtained no degenerative changes thoracic spine. Re-evaluation: stable with improving symptoms. She is followed by pain management with appointment in the next 4 days. She will be written for her Mobic and Flexeril for which helped her symptoms in the past. Scheduled drugs can be written by her pain management doctor with further treatment as an outpatient. All questions were answered. Disposition discussed with patient/family/significant other: Patient and significant other Case discussed with consulting clinician: N/A Radiography Diagnostic Testing: Clinical Impression(s) from Imaging Studies Thoracic Spine X-Ray 04/12/23 15:11 IMPRESSION: There are degenerative changes as noted above. Electronically Signed: Hema Brown MD at 15:44 EDT Reading Location ID and State: [facility] / [place] , Service support , Discharge Plan Triage Chief Complaint: Back ED Provider: Leo Finnegan Dx/Rx/DC Orders Clinical Impression: Back pain, thoracic, DDD (degenerative disc disease), thoracic Instructions: ED Back Pain (Acute or Chronic), ED Degenerative Disk Disease Prescriptions: New meloxicam 7.5 mg tablet 7.5 mg PO DAILY Qty: 30 0RF cyclobenzaprine [cyclobenzaprine] 10 mg tablet 10 mg PO TID PRN (Reason: Muscle Spasm) Qty: 20 0RF No Action Latuda 20 mg tablet 60 mg PO DAILY Linzess 145 mcg capsule 145 mcg PO DAILY hydrocodone-acetaminophen 5-325 mg tablet 1 tab PO BID PRN baclofen 10 mg tablet 10 mg PO TID PRN (Reason: muscle spasm/pain) Qty: 90 5RF oxcarbazepine 150 mg tablet 150 mg PO BID Qty: 60 5RF ferrous sulfate [FeroSul] 325 mg (65 mg iron) tablet 325 mg PO BID potassium chloride 20 mEq tablet,ER particles/crystals 20 meq PO DAILY ondansetron 4 mg tablet,disintegrating 4 mg PO Q6H PRN (Reason: nausea and vomiting) Qty: 20 0RF fluoxetine 20 mg capsule 40 mg PO DAILY Label Comments: Take 3 capsule every morning meclizine 25 MG tablet,chewable 25 mg PO PRN PRN (Reason: Dizziness) meloxicam 7.5 MG tablet 7.5 mg PO DAILY topiramate 25 MG tablet 200 mg PO DAILY zolpidem 5 mg tablet 5 mg PO QHS Label Comments: TAKE 1 TABLET BY MOUTH ONCE DAILY AT BEDTIME furosemide 20 mg tablet 20 mg PO DAILY Label Comments: TAKE 1 TABLET BY MOUTH ONCE DAILY lisinopril 20 mg Tablet 20 mg PO BID metformin 1,000 mg Tablet 1,000 mg PO BID dicyclomine 20 mg Tablet 20 mg PO TID gabapentin 600 mg tablet 600 mg PO BID sucralfate [Carafate] 100 mg/mL suspension 10 ml PO BID Qty: 400 0RF Primary Care Provider: Daniel Stapleton Referrals: Judy Kumar MD [Med Staff - Active Staff] - Keep Rajinder appointment Daniel Stapleton MD [Primary Care Provider] - Disposition Disposition: Home, Self Care Discharge Date/Time: 04/12/23 16:46
[2023-04-12] MEDS: Ketorolac 30 MG/ML Syringe IM (15:02)
[2023-04-12] MEDS: Morphine 4 MG/ML Syringe IM (15:02)
--- NOTE | 2023-04-12 15:11 | RAD_ITS ---
STUDY: X-RAY - THORACIC SPINE REASON FOR EXAM: Female, 57 years old. pain TECHNIQUE: XR Spine Thoracic 3 Views COMPARISON: None FINDINGS: Normal kyphosis of the thoracic spine. There is no substantial scoliosis. There is demineralization of the thoracic spine. There is multilevel disc space narrowing of the thoracic spine. The soft tissue structures are unremarkable. RAD/Thoracic Spine 3 Views IMPRESSION: There are degenerative changes as noted above. Electronically Signed: Hema Brown MD at 15:44 EDT ,
== END 2023-04-12 16:46 | disposition home or self-care (01) ==
PROVIDERS: Emergency Provider Emergency Medicine; PCP Family Medicine; Visit Provider Emergency Medicine
DX: M51.34 Other intervertebral disc degeneration, thoracic region (principal); E11.40 Type 2 diabetes mellitus with diabetic neuropathy, unspecified; I10 Essential (primary) hypertension; F17.210 Nicotine dependence, cigarettes, uncomplicated
CPT/HCPCS: 72072; 96372; 99282

== ENCOUNTER → 2023-04-17 | Outpatient (CLI) | payer MEDICARE, SELFPAY ==
--- NOTE | 2023-04-17 17:43 | MRI_ITS ---
STUDY: MRI BRAIN WITH AND WITHOUT CONTRAST (ATTENTION INTERNAL AUDITORY CANALS - I.A.C.s) REASON FOR EXAM: Female, 57 years old patient with bilateral occipital neuralgia and bilateral trigeminal neuralgia. TECHNIQUE: Standardized multiplanar fat and water weighted pulse sequences were obtained. 18 ml of IV Clariscan was administered for the contrast portion of the examination. COMPARISON: MRI of the brain dated December 29, 2019. FINDINGS: Normal bilateral temporal bones. Normal bilateral internal auditory canals. There is no demonstrated intracanalicular or cisternal vestibular schwannoma (acoustic neuroma). There is no enhancement of the bilateral VIIth or VIIIth cranial nerves. Normal bilateral cochlea, vestibules and semicircular canals. Normal size of the ventricles and extra-axial spaces for the patient''s age. Normal white matter tracts of the supratentorial brain. There is no evidence for recent intracranial ischemia or other cause of cytotoxic edema on diffusion weighted imaging (DWI). Normal T2* images of the brain without demonstrated susceptibility artifact. There is no demonstrated hemosiderin stain. Normal bilateral basal ganglia. Normal thalami. Normal flow voids within the major intracranial circulation suggesting patency by spin echo criteria. Normal venous enhancement. There is no enhancing intra-axial or extra-axial abnormality. There is no extra-axial fluid accumulation. Normal sella turcica, pituitary gland, infundibular stalk, optic chiasm and hypothalamus. There is probably some artifactual signal within the sella only seen on the 3-D FIESTA images. This is probably related to CSF pulsatility as this cannot be visualized with any other sequence. Normal tectal plate and pineal gland. Normal midbrain, trevin and medulla. Normal cerebellum. Normal basal cisterns. No demonstrated orbital abnormality, within the constraints of a routine brain study. Normal visualized paranasal sinuses. Normal calvarium and skull base. Normal visualized soft tissue structures. Normal visualized upper cervical spine. MRI/Brain W/WO Contrast IMPRESSION: 1. No MR evidence for cerebellopontine angle mass or acoustic neuroma. 2. Essentially normal MRI of the brain. Electronically Signed: Kristan Burk MD at 7:38 EDT ,
== END | disposition home or self-care (01) ==
LOC: MRI 17:38
PROVIDERS: PCP Family Medicine; Referring Provider Psychiatry & Neurology Neurology; Visit Provider Psychiatry & Neurology Neurology
DX: R42 Dizziness and giddiness (principal); G50.0 Trigeminal neuralgia; M54.81 Occipital neuralgia
CPT/HCPCS: 70553; A9575; A4216

== ENCOUNTER 2023-08-28 16:36 | Emergency (ER) | payer MEDICARE, SELFPAY ==
[2023-08-28 16:37] VITALS: BP 125/56; PULSE 81; RESP 18; TEMP 36; O2SAT 97; BMI 32.8
[2023-08-28] MEDS: Ketorolac 15 MG/ML Vial IM (18:09)
[2023-08-28] MEDS: Orphenadrine 60 MG/2 ML Ampul IM (18:09)
--- NOTE | 2023-08-28 18:26 | EDS_ITS ---
HPI History of Present Illness Chief Complaint: Lower Extremity Injury Narrative Narrative: 67-year-old female presenting with pain in the right IT band. She states she was lifting heavy furniture and this started to hurt afterwards. Denies any direct trauma. She is able to ambulate although she has antalgic gait. She states it radiates to the lateral aspect of the knee. Patient does states she have degenerative hip disease. [facility] Medical History Abnormal mammogram Arthritis Back pain Bipolar disorder Chest pain CPAP (continuous positive airway pressure) dependence Depression with anxiety Diabetes Diarrhea Dietary restriction Gastric reflux Herniated disc, cervical History of edema History of pain when walking History of renal disease Hypertension Leg cramps Low iron Neuropathy Occipital neuralgia Pain Scoliosis Seizures Shortness of breath on exertion Smoker Spinal stenosis Syncope Home Medications fluoxetine 20 mg capsule 40 mg PO DAILY 09/10/18 [History Last Taken Unknown] meclizine 25 mg chewable tablet 25 mg PO PRN PRN Dizziness 09/10/18 [History Last Taken Unknown] lurasidone 20 mg tablet (Latuda) 60 mg PO DAILY 12/16/18 [History Last Taken Unknown] meloxicam 7.5 mg tablet 7.5 mg PO DAILY 05/04/19 [History Last Taken Unknown] topiramate 25 mg tablet 200 mg PO DAILY 05/04/19 [History Last Taken Unknown] furosemide 20 mg tablet 20 mg PO DAILY 03/12/22 [History Last Taken Unknown] zolpidem 5 mg tablet 5 mg PO QHS 03/12/22 [History Last Taken Unknown] ferrous sulfate 325 mg (65 mg iron) tablet (FeroSul) 325 mg PO BID 01/14/23 [History Last Taken Unknown] potassium chloride 20 mEq tablet,extended release(part/cryst) 20 meq PO DAILY 01/14/23 [History Last Taken Unknown] dicyclomine 20 mg tablet 20 mg PO TID 01/17/23 [History Last Taken Unknown] lisinopril 20 mg tablet 20 mg PO BID 01/17/23 [History Last Taken Unknown] metformin 1,000 mg tablet 1,000 mg PO BID 01/17/23 [History Last Taken Unknown] sucralfate 100 mg/mL oral suspension (Carafate) 10 ml PO BID #400 mL 01/22/23 [Rx Last Taken Unknown] ondansetron 4 mg disintegrating tablet 4 mg PO Q6H PRN nausea and vomiting #20 tabs 01/29/23 [Rx Last Taken Unknown] baclofen 10 mg tablet 10 mg PO TID PRN muscle spasm/pain #90 tabs 03/19/23 [Rx Last Taken Unknown] gabapentin 600 mg tablet 600 mg PO BID 03/19/23 [History Last Taken Unknown] hydrocodone-acetaminophen 5-325mg 5mg-325mg 1 tab PO BID PRN 03/19/23 [History Last Taken Unknown] linaclotide 145 mcg capsule (Linzess) 145 mcg PO DAILY 03/19/23 [History Last Taken Unknown] oxcarbazepine 150 mg tablet 150 mg PO BID #60 tabs 03/19/23 [Rx Last Taken Unknown] cyclobenzaprine 10 mg tablet 10 mg PO TID PRN Muscle Spasm #20 TABLETS 04/12/23 [Rx Last Taken Unknown] meloxicam 7.5 mg tablet 7.5 mg PO DAILY #30 tabs 04/12/23 [Rx Last Taken Unknown] tizanidine 4 mg tablet 4 mg PO Q8H PRN muscle spasticity #20 tabs 08/28/23 [Rx Last Taken Unknown] Allergy/AdvReac Type Severity Reaction Status Date / Time haloperidol [From Haldol] Allergy Severe Angioedema Verified 08/28/23 16:37 Family History Mother Asthma Arthritis Diabetes Hypertension High cholesterol Uncle Colon cancer CVA (cerebral vascular accident) Aunt Cancer leukemia Heart disease Surgical History History of bilateral breast reduction surgery History of carpal tunnel surgery of left wrist History of carpal tunnel surgery of right wrist History of lumbar laminectomy History of shoulder surgery Hx of colonoscopy Social History Smoking Status: Current every day smoker tobacco type: cigarettes second hand exposure: No alcohol intake: never substance use type: does not use what type of physical activity do you participate in: none seatbelt use: always ROS ROS ED Constitutional Constitutional ED: Denies chills, fever(s) or sweats Eyes Eyes: Denies blurry vision or change in vision ENT ENT ED: Denies ear pain or sore throat Cardiovascular Cardiovascular: Denies chest pain, palpitations or racing heartbeat Respiratory/Chest Respiratory/Chest: Denies cough, dyspnea or sputum Gastrointestinal Gastrointestinal: Denies abdominal pain, constipation, diarrhea, nausea or vomiting Genitourinary Genitourinary ED: Denies dysuria, hematuria or urinary frequency Musculoskeletal Musculoskeletal: Reports other; Denies arthralgias, myalgias or neck pain Integumentary Denies abscess, Abrasions or rash Neurologic Neurologic: Denies headache(s), paresthesias or weakness Psychiatric Psychiatric: Denies anxiety, depression, suicidal ideation or suicidal thoughts Endocrine Endocrinology: Denies polydipsia or polyuria EXAM Physical Exam Const Vital Signs: 08/28/23 16:37 Temperature 96.8 F L Temperature Source Temporal Pulse Rate 81 Respiratory Rate 18 Blood Pressure 125/56 H Blood Pressure Mean 79 Pulse Ox 97 Oxygen Delivery Method Room Air Positive well nourished General Appearance ED: NAD HEENT normocephalic Resp normal respiratory effort and no retractions Cardio regular rate and regular rhythm Back/Spine no CVA tenderness Lumbar Spine / Lower Back: Negative for lumbar spinal tenderness Extremity Extremity Narrative: Tenderness palpation noted over the lateral aspect of the right leg in the distribution of the IT band. Patient able to flex her hip up off the bed as well as bend the knee without much difficulty. Neuro oriented x3 and CN's II-XII intact bilaterally Motor Exam: strength 5/5 throughout Psych mental status grossly normal MDM MDM MDM Narrative Medical decision making narrative: Patient presented with leg strain. Specifically it seems to involve her IT band . She is given Norflex and Toradol in the ED. I will give her prescription for muscle relaxers. She is to continue Tylenol and ibuprofen as needed. I recommended a warm bath and stretching as well as icing and alternate fashion. Recommended follow-up with primary care if not improving. Return precautions discussed. Impression: 1. Right leg strain Lab Data Attestation: I reviewed the patient's lab results. Discharge Plan Triage Chief Complaint: Lower Extremity Injury ED Provider: Scott Shafer Dx/Rx/DC Orders Instructions: ED Muscle Strain, Extremity Prescriptions: New tizanidine 4 mg tablet 4 mg PO Q8H PRN (Reason: muscle spasticity) Qty: 20 0RF No Action Latuda 20 mg tablet 60 mg PO DAILY Linzess 145 mcg capsule 145 mcg PO DAILY hydrocodone-acetaminophen 5-325 mg tablet 1 tab PO BID PRN baclofen 10 mg tablet 10 mg PO TID PRN (Reason: muscle spasm/pain) Qty: 90 5RF oxcarbazepine 150 mg tablet 150 mg PO BID Qty: 60 5RF ferrous sulfate [FeroSul] 325 mg (65 mg iron) tablet 325 mg PO BID potassium chloride 20 mEq tablet,ER particles/crystals 20 meq PO DAILY ondansetron 4 mg tablet,disintegrating 4 mg PO Q6H PRN (Reason: nausea and vomiting) Qty: 20 0RF fluoxetine 20 mg capsule 40 mg PO DAILY Patient Comments: Take 3 capsule every morning meclizine 25 MG tablet,chewable 25 mg PO PRN PRN (Reason: Dizziness) meloxicam 7.5 MG tablet 7.5 mg PO DAILY topiramate 25 MG tablet 200 mg PO DAILY zolpidem 5 mg tablet 5 mg PO QHS Patient Comments: TAKE 1 TABLET BY MOUTH ONCE DAILY AT BEDTIME furosemide 20 mg tablet 20 mg PO DAILY Patient Comments: TAKE 1 TABLET BY MOUTH ONCE DAILY lisinopril 20 mg Tablet 20 mg PO BID metformin 1,000 mg Tablet 1,000 mg PO BID dicyclomine 20 mg Tablet 20 mg PO TID gabapentin 600 mg tablet 600 mg PO BID meloxicam 7.5 mg tablet 7.5 mg PO DAILY Qty: 30 0RF cyclobenzaprine [cyclobenzaprine] 10 mg tablet 10 mg PO TID PRN (Reason: Muscle Spasm) Qty: 20 0RF sucralfate [Carafate] 100 mg/mL suspension 10 ml PO BID Qty: 400 0RF Primary Care Provider: Care Physician,No Primary Referrals: Stefania Brown MD [Med Staff - Refiner Operator] - 3-5 Days Care Physician,No Primary [Primary Care Provider] - Disposition Disposition: Home, Self Care
== END 2023-08-28 18:49 | disposition home or self-care (01) ==
PROVIDERS: Emergency Provider Student in an Organized Health Care Education/Training Program; Visit Provider Student in an Organized Health Care Education/Training Program
DX: S86.911A Strain of unspecified muscle(s) and tendon(s) at lower leg level, right leg, initial encounter (principal); E11.40 Type 2 diabetes mellitus with diabetic neuropathy, unspecified; I10 Essential (primary) hypertension; Z99.89 Dependence on other enabling machines and devices; F41.8 Other specified anxiety disorders; M19.90 Unspecified osteoarthritis, unspecified site; K21.9 Gastro-esophageal reflux disease without esophagitis; Z79.899 Other long term (current) drug therapy; Z79.84 Long term (current) use of oral hypoglycemic drugs; F17.210 Nicotine dependence, cigarettes, uncomplicated; X50.0XXA Overexertion from strenuous movement or load, initial encounter; Y93.89 Activity, other specified
CPT/HCPCS: 96372; 99282

== ENCOUNTER → 2023-10-20 | Outpatient (CLI) | payer MEDICARE, SELFPAY ==
[2023-10-20 18:38] LABS: AST(SGOT) 15 U/L (15-37); Alanine Aminotransfer ALT/SGPT 28 U/L (13-56); Albumin, Serum 3.5 g/dL (3.2-5.0); Alkaline Phosphatase 92 U/L (45-117); Anion Gap 5 (5-15); BUN 8 mg/dL (7-18); BUN/Creat Ratio 8.8 RATIO (10-20); Chloride 108 mmol/L (98-107); Cholesterol 220 mg/dL (200); Creatinine, Serum 0.91 mg/dL (0.55-1.02); EST Glomerular Filtration Rate 68 mL/min (>60); Est Glom Filt Rate - Afr Amer 83 mL/min (>60); Globulin 3.4 g/dL (2.2-4.2); Glucose 75 mg/dL (74-106); Hemoglobin A1c 5.6 % (3.8-5.6); High Density Lipoprotein 47 mg/dL; Potassium 4.1 mmol/L (3.5-5.1); Protein, Total 6.9 g/dL (6.4-8.2); Sodium Level 140 mmol/L (136-145); Triglycerides 168 mg/dL; Very Low Density Lipoprotein 34 mg/dL (5-40)
[2023-10-20 18:40] LABS: Microalbumin,Random Urine 7.4 mg/L (NO RANGE EST.); Microalbumin:Creatinine Ratio 11.1 mg/g CRE (<30 mg/g CRE)
== END | disposition home or self-care (01) ==
LOC: MFPLAB 14:32
PROVIDERS: Visit Provider Family Medicine
DX: E78.5 Hyperlipidemia, unspecified (principal); E11.9 Type 2 diabetes mellitus without complications
CPT/HCPCS: 36415; 80053; 80061; 82043; 82570; 83036

== ENCOUNTER → 2023-10-27 | Outpatient (CLI) | payer MEDICARE, SELFPAY ==
--- NOTE | 2023-10-27 13:30 | RAD_ITS ---
STUDY: X-RAY - ACUTE ABDOMINAL SERIES REASON FOR EXAM: Female, 58 years old. Pain. TECHNIQUE: Single view of the chest. Supine, and erect view(s) of the abdomen were obtained on 6 images. COMPARISON: Chest x-ray dated January 14, 2023. FINDINGS: The lungs are clear and expanded. Normal size heart. Normal mediastinum and josé miguel. Normal visualized pulmonary arteries. Normal visualized aortic arch and descending thoracic aorta. Normal bowel gas pattern with air seen to the rectum. No disproportionate dilatation of bowel. Mild amount of feces in the colon. Moderate arthrosis of both hips, right greater than left. RAD/Acute Abdomen Inc Chest IMPRESSION: Moderate arthrosis of both hips as described. No acute abnormality. Electronically Signed: Navneet Yoon MD at 16:04 EST ,
== END | disposition home or self-care (01) ==
LOC: MTRAD 13:28
PROVIDERS: PCP Family Medicine; Referring Provider Family Medicine; Visit Provider Family Medicine
DX: K59.00 Constipation, unspecified (principal)
CPT/HCPCS: 74022

== ENCOUNTER → 2024-04-15 | Outpatient (CLI) | payer MEDICARE, SELFPAY ==
--- NOTE | 2024-04-15 14:02 | CT_ITS ---
STUDY: CT CHEST T ABDOMEN WITH CONTRAST REASON FOR EXAM: Female, 58 years old. LUNG NODULE RADIATION DOSAGE (If Supplied By Facility): CTDIvol = ( 15.09 ) mGy, DLP = ( 593.10 ) mGycm TECHNIQUE: Transaxial imaging was performed following intravenous administration of IV 100mL Isovue-300. Multiplanar coronal and sagittal images were reformatted. Individualized dose optimization techniques were used for this CT. COMPARISON: No relevant priors. FINDINGS: CHEST Heterogeneous enlargement of the left lobe of the thyroid gland with a substernal extension. The hypodense nodule in the inferior pole measures 2.5 cm x 2.6 cm. Correlation with the ultrasound examination is recommended. Small benign-appearing bilateral axillary lymph nodes. There is a 1.1 cm bulla in the lateral left lower lobe. Mild scarring in the posterior lateral aspect of the lingular segment of the left upper lobe. Bibasilar dependent atelectasis. There is no demonstrated pleural abnormality. There are calcifications of the coronary arteries. Normal mediastinum. Normal hilar regions. Normal unenhanced pulmonary arteries. Normal aorta arch and descending thoracic aorta. There are degenerative changes of the thoracic spine. Fatty infiltration of the liver. CT/Chest WITH Contrast IMPRESSION: Enlargement of the left lobe of the thyroid gland with substernal extension. Mild scarring in the lateral aspect of the lingular segment of the left upper lobe. Mild degree of bibasilar dependent atelectasis. Electronically Signed: Edilberto Farah MD at 14:39 EDT ,
[2024-04-15 14:34] LABS: CREATININE FINGERSTICK < 1.0 mg/dL (0.55-1.02); EGFR FINGERSTICK > 60.0000 mL/min (>60)
== END | disposition home or self-care (01) ==
LOC: CT 14:00
PROVIDERS: PCP Family Medicine; Referring Provider Family Medicine; Visit Provider Family Medicine
DX: R91.1 Solitary pulmonary nodule (principal)
CPT/HCPCS: 71260; Q9967

== ENCOUNTER → 2024-04-22 | Outpatient (CLI) | payer MEDICARE, SELFPAY ==
--- NOTE | 2024-04-22 12:17 | US_ITS ---
STUDY: THYROID ULTRASOUND REASON FOR EXAM: Female, 58 years old. Palpable nodule TECHNIQUE: Ultrasound evaluation of the thyroid was performed with real-time and static blanca-scale imaging. COMPARISON: None. FINDINGS: RIGHT LOBE: The right lobe of the thyroid gland measures 5.0 x 1.9 x 1.5 cm. There is a homogeneous echotexture. 2 separate solid/cystic nodules identified larger measures 0.7 cm. No suspicious solid thyroid nodule. These nodules are mixed cystic and solid, anechoic, [id number], smoothly marginated and contains no echogenic foci. TI-RADS points: 1. TI-RADS category: TR1. Nodules are benign and no FNA or follow-up is necessary. LEFT LOBE: The left lobe of the thyroid gland measures 5.4 x 2.3 x 2.3 cm. There is a homogeneous echotexture. There is a solid and cystic, probably solid 3.2 x 3.0 x 2.9 cm well-defined mass without hyperemia. This nodule is mixed cystic and solid, hypoechoic, [id number], smoothly marginated and contains no echogenic foci. TI-RADS points: 3. TI-RADS category: TR3. This nodule is mildly suspicious. Recommend FNA evaluation. ISTHMUS: The isthmus measures 0.3 cm. The regional lymph nodes are normal. US/Thyroid IMPRESSION: Enlarged homogeneous thyroid gland with bilateral solid and cystic nodules, the largest nodule in the left thyroid lobe is suspicious and FNA is recommended for further evaluation. The nodules in the right lobe do not meet specific follow-up due to their size Electronically Signed: Corbin Connell MD at 15:10 EDT ,
== END | disposition home or self-care (01) ==
PROVIDERS: PCP Family Medicine; Referring Provider Family Medicine; Visit Provider Family Medicine
DX: E04.1 Nontoxic single thyroid nodule (principal)
CPT/HCPCS: 76536

== ENCOUNTER → 2024-04-23 | Outpatient (CLI) | payer MEDICARE, SELFPAY ==
[2024-04-23 18:07] LABS: PTHIN 31.9 pg/mL (18.4-80.1)
[2024-04-23 18:24] LABS: Calcium,Total 10.2 mg/dL (8.5-10.1); Free T3 2.6 pg/mL (2.18-3.98); Thyroid Stim Hormone (TSH) 0.95 uIU/mL (0.358-3.74)
== END | disposition home or self-care (01) ==
LOC: MFPLAB 14:52
PROVIDERS: PCP Family Medicine; Visit Provider Family Medicine
DX: E04.1 Nontoxic single thyroid nodule (principal)
CPT/HCPCS: 36415; 82310; 83970; 84443; 84481

== ENCOUNTER → 2024-05-14 | Outpatient (CLI) | payer MEDICARE, SELFPAY ==
--- NOTE | 2024-05-14 13:56 | US_ITS ---
STUDY: ULTRASOUND BREAST - BILATERAL REASON FOR EXAM: Female, 58 years old. Abnormal screening mammogram. TECHNIQUE: Axial and longitudinal images of the BILATERAL breast were performed with a high resolution ultrasound transducer. # OF IMAGES: [id number] COMPARISON: Comparison is made with prior mammogram dated May 14, 2024 and prior sonogram of the right breast dated September 13, 2019. FINDINGS: BILATERAL Breast: Imaging of the upper outer quadrant of the right breast was obtained. There is a 2 cm x 3.6 cm x 1.5 cm heterogeneous nodule at the 9:00 position of the breast at 12 cm from nipple. This corresponds to the mammographic abnormality. A tissue clip marker is seen within it. There is also evidence of a 2.3 cm x 2 cm x 0.7 cm solid nodule at the 10:00 position breast at 11 cm from nipple. There is also evidence of a 2.5 cm x 1.2 cm x 0.6 cm solid nodule at the 9:00 position breast at 12 cm from nipple. Biopsy recommended of these nodules. Imaging of the left breast was obtained. The axillary region was examined. There is a 2.7 cm x 1.9 Lionel by 1.4 cm complex lymph node. A similar-appearing lymph node is seen in the left axilla measuring 2.5 cm x 0.8 signed by 1.4 cm. The palpable abnormality corresponds to a 1.2 cm x 1.2 cm x 0.8 cm lymph node. US/Breast Limited Unilateral IMPRESSION: 3 solid nodules are seen in the right breast as described. Biopsy recommended. Prominent left axillary lymph nodes. Biopsy recommended. ASSESSMENT CATEGORY: BIRADS Category 4: Suspicious - Biopsy Should Be Considered. A letter regarding these results will be sent to the patient by the facility within 30 days. Electronically Signed: Edilberto Farah MD at 8:36 EDT ,
--- NOTE | 2024-05-14 13:56 | BI_ITS ---
MAMMOGRAPHY - UNILATERAL DIAGNOSTIC: RIGHT BREAST REASON FOR EXAM: Female, 58 years old. Abnormal screening mammogram. PERTINENT HISTORY: TECHNIQUE: 90 degree lateral view of the right breast was obtained. . CAD: Full Field Digital Mammography with Computer Added Detection was performed. COMPARISON: Comparison is made with prior examination March 19, 2024. FINDINGS: Breast Composition: The breasts are heterogeneously dense, which may obscure small masses. There is a persistent 2.5 cm x 1.4 cm nodular density in the axillary region of the right breast. A tissue clip marker seen adjacent to this nodule. Correlation with ultrasound is recommended. No other significant abnormalities are identified. BI/DIAG MAMM W/CAD, UNILAT IMPRESSION: Stable 2.5 cm x 1.4 cm nodule in the axial region of the right breast. Correlation with ultrasound recommended. ASSESSMENT CATEGORY: BIRADS Category 0: Incomplete. Need additional imaging evaluation. A letter regarding these results will be sent to the patient by the facility within 30 days. Approximately 10% of breast cancers are not detected by mammography. A normal mammogram should not delay biopsy of a clinically suspicious abnormality. Electronically Signed: Edilberto Farah MD at 8:32 EDT ,
== END | disposition home or self-care (01) ==
PROVIDERS: PCP Family Medicine; Referring Provider Family Medicine; Visit Provider Family Medicine
DX: R92.8 Other abnormal and inconclusive findings on diagnostic imaging of breast (principal)
CPT/HCPCS: 76642; 77065

== ENCOUNTER → 2024-05-18 | Outpatient (CLI) | payer MEDICARE, SELFPAY ==
--- NOTE | 2024-05-18 13:00 | TISS_PTH ---
PATIENT: SHIREEN EDGAR LOC: [facility] U#:[id number] AGE/SX: 58/F ROOM: RE05/18/[address]: Dr. Ciro Mathur MD : 1965 BED: DIS: 05/18/2024 SPEC #: [id number] RECD: 05/18/24 15:49 STATUS: DONNA CHEN #: [id number] ELINA: 05/18/24 13:[address]: Ciro Mathur DEPT: SURGICAL PATHOLOGY RECD BY: Talita Jo ENTERED: 05/19/24 07:00 SP TYPE: Tissue Bx KAYLEE DR: Dr. Daniel Stapleton MD Tissues: Axilla, NOS Procedures: Surgery Specimen Level IV HEADER OPERATION: Excisional biopsy of left axillary nodule PRE-OP DIAGNOSIS: Left axillary nodule TISSUE SUBMITTED: Left axilla 1.2 x 1.2 x 0.8 MICROSCOPIC DIAGNOSIS Nodular lesion of axilla, biopsy: Epidermal inclusion cyst. AM/mr 05/20/2024 MICROSCOPIC DESCRIPTION Slides are reviewed. GROSS DESCRIPTION Received in fixative is one container labeled with the patient's name and designated Left axilla biopsy. The specimen consists of an irregular fragment of garcia skin measuring 1.0 x 0.5cm. Attached to this is a nodular grayish-garcia lesion measuring 1.0cm in greatest dimension. The specimen is inked, serially sectioned and totally submitted in one cassette. / 05/19/2024 TC:5 CPT:10527
== END | disposition home or self-care (01) ==
LOC: LABSPEC 16:16
PROVIDERS: PCP Family Medicine; Referring Provider Surgery; Visit Provider Surgery
DX: L72.0 Epidermal cyst (principal)
CPT/HCPCS: 88305

== ENCOUNTER → 2024-05-31 | Outpatient (CLI) | payer MEDICARE, SELFPAY ==
--- NOTE | 2024-05-31 12:07 | US_ITS ---
RIGHT BREAST ULTRASOUND GUIDED CORE BIOPSY WITH CLIP PLACEMENT AND POST-PROCEDURE DIGITAL DIAGNOSTIC MAMMOGRAM WITH CAD: CLINICAL HISTORY AND INDICATION: 58 years old female Right breast masses COMPARISON: 05/14/2024. PROCEDURE: (All elements of maximal sterile barrier technique followed, including US elements as applicable) Upon arrival to the breast imaging department the patient''s identification was confirmed. The risks and benefits of an ultrasound guided biopsy were discussed with the patient, including risk of bleeding, bruising and infection, as well as placement of a marker clip. All questions and concerns were answered, the RIGHT breast was marked and both written and verbal informed consent was obtained. Targeted RIGHT Breast Ultrasound: The overlying skin was marked. A timeout procedure was performed. The skin was prepped and draped in standard sterile fashion. The skin and subcutaneous tissues were infiltrated with 10 ml buffered 1% lidocaine. Deep anesthesia was achieved by administering an additional 10 ml of buffered 1% lidocaine containing epinephrine. Following a small skin incision and using coaxial technique, a 14 gauge core biopsy device was advanced to the mass under direct sonographic visualization. A total of 4 passes were made through the mass from a medical approach. Lesion conspicuity and needle position were felt to be optimal. Clip Placement: Under sonographic guidance, a Ultra clip dual trigger marker clip was deployed at the biopsy site. Upon completion of the procedure hemostasis was obtained and sterile dressing was applied. All specimens were sent to pathology. Post-Biopsy Digital Mammogram RIGHT Breast: Craniocaudal and true lateral views were obtained, demonstrating the clip to be in satisfactory position. Minimal post-biopsy changes are noted. The patient tolerated the entire procedure without immediate complication and was discharged from the breast imaging department in good condition. US/US Breast Biopsy 1st Lesion IMPRESSION: 1. Successful and uneventful ultrasound guided core biopsy of a mass in the RIGHT breast at 9:00 without complication. 2. Pending Pathology result(s). The report will be Addended when the pathology results become available. Electronically Signed: Emile Bella MD at 11:19 EDT ,
--- NOTE | 2024-05-31 12:59 | BRBX_PTH ---
PATIENT: SHIREEN EDGAR LOC: [facility]#:[id number] AGE/SX: 58/F ROOM: RE05/31/[address]: Dr. Ciro Mathur MD : 1965 BED: DIS: 05/31/2024 SPEC #: [id number] RECD: 05/31/24 13:28 STATUS: DONNA CHEN #: [id number] ELINA: 05/31/24 12:[address]: Ciro Mathur DEPT: SURGICAL PATHOLOGY RECD BY: Talita Jo ENTERED: 06/01/24 10:08 SP TYPE: BREAST BX OTHR DR: Dr. Daniel Stapleton MD Tissues: Right breast, NOS Procedures: Surgery Specimen Level IV HEADER OPERATION: Ultrasound guided right breast biopsy PRE-OP DIAGNOSIS: Right breast mass TISSUE SUBMITTED: 9 o'clock, 12 cm from nipple, right breast core biopsy Ischemic Time: 1 minute Fixation Time: 6.5 hours MICROSCOPIC DIAGNOSIS Right breast mass, 9 o'clock, 12cm from the nipple, core biopsy: Fragments of benign breast tissue with extensive dense fibrosis. Lobular involution and focal adenosis. Negative for atypia or malignancy. See comment. Nola 06/02/2024 COMMENT Correlation with clinical, radiologic findings and appropriate follow up are necessary. MICROSCOPIC DESCRIPTION Slides are reviewed. GROSS DESCRIPTION Received in fixative is one container labeled with the patient's name and designated Right breast 9 o'clock position. The specimen consists of multiple elongated fragments of garcia-yellow fibroadipose tissue that in aggregate measure 1.5 x 0.5 x 0.1 cm. The specimen is totally submitted in one cassette. Nola 06/01/2024 TC:5 CPT:63758
--- NOTE | 2024-05-31 13:24 | BI_ITS ---
MAMMOGRAPHY - UNILATERAL DIAGNOSTIC: RIGHT BREAST REASON FOR EXAM: Female, 58 years old. breast biopsy -- clip placement PERTINENT HISTORY: Non-contributory. TECHNIQUE: Digital examination. Mediolateral oblique (MLO) and craniocaudad (CC) views of the breast were obtained. CAD: 2 COMPARISON: 03/19/2024 FINDINGS: Breast Composition: There are scattered areas of fibroglandular density. Interval recent biopsy in the upper-outer quadrant right breast with placement of a marking clip. No other significant abnormalities are identified. BI/DIAG MAMM W/CAD, UNILAT IMPRESSION: Interval recent biopsy in the upper-outer quadrant right breast with placement of a marking clip. Electronically Signed: Emile Bella MD at 16:28 EDT ,
--- NOTE | 2024-05-31 13:25 | PCM.OP.PRO ---
Procedure Report Date of Procedure: 05/31/24 Procedure: Core needle biopsy of right breast Description: After a detailed discussion regarding the risks and benefits of the biopsy procedure, the patient was positioned supine on the gurney. Formal, written consents were obtained prior to positioning. Ultrasound was used to localize the lesion in the lateral right breast (and position was further confirmed after identifying the previously?placed biopsy clip). Locally 2% lidocaine with epinephrine was infiltrated about the mass using ultrasound guidance. A total volume of 14 mL was instilled. Once the area was sufficiently anesthetized, a small stab incision was made in the skin and the Vaunte Cormax core needle device was introduced percutaneously. Ultrasound was used to guide the tip of the device to the border of the suspicious lesion. Then the mass was serially sampled with 4 cores which were placed in solution for pathologic processing. A marking clip was then placed under ultrasound guidance in the lateral aspect of the mass. Pressure was applied until hemostasis was obtained. The skin was cleaned and Steri-Strips were applied over the stab incision for the biopsy procedure. Patient tolerated the procedure with no complications. She will be sent to mammography to confirm clip placement and compared to previous?placed clip EBL: 5 mL Complications: None Procedures Integumentary 16xxx-[id number]: 91080 Bx breast 1st lesion us imag
== END | disposition home or self-care (01) ==
LOC: US 12:07
PROVIDERS: PCP Family Medicine; Referring Provider Surgery; Visit Provider Surgery
DX: N60.31 Fibrosclerosis of right breast (principal); N60.21 Fibroadenosis of right breast; N63.15 Unspecified lump in the right breast, overlapping quadrants
CPT/HCPCS: 19083; 77065; 88305

== ENCOUNTER 2024-06-14 01:07 | Emergency (ER) | payer MEDICARE, SELFPAY ==
[2024-06-14 01:11] VITALS: BP 143/89; PULSE 88; RESP 18; TEMP 36.6; O2SAT 98; BMI 30.4
--- NOTE | 2024-06-14 01:31 | CT_ITS ---
EXAM: CT ABDOMEN AND PELVIS WITH INTRAVENOUS CONTRAST CLINICAL INDICATION: abdominal pain TECHNIQUE: Helically acquired images were obtained of the abdomen and pelvis with intravenous contrast. This CT exam was performed using one or more of the following dose reduction techniques: automated exposure control, adjustment of the mA and/or kV according to patient size, and/or use of iterative reconstruction technique. CONTRAST: IV 100mL Isovue-370 RADIATION DOSE: Total DLP: 1277.71 mGy-cm. COMPARISON: Chest CT of 04/15/2024. FINDINGS: LOWER THORAX: No acute basilar pulmonary infiltrates or pleural effusion. No significant pericardial effusion. ABDOMEN: LIVER: Mild fatty infiltration of the liver. Right hepatic lobe is elongated measuring 18.4 cm in cephalocaudal dimension. No focal intrahepatic abnormality. GALLBLADDER AND BILE DUCTS: Unremarkable. No calcified gallstones. No gallbladder distention or wall edema. No intra- or extrahepatic biliary ductal dilation. PANCREAS: Unremarkable. No focal cystic or solid mass. SPLEEN: Unremarkable. Normal size without focal cystic or solid mass. ADRENALS: Unremarkable. No nodules. KIDNEYS AND URETERS: Unremarkable. Normal renal size and position. No hydronephrosis. No renal or obstructing ureteral stones. STOMACH AND BOWEL: Unremarkable. No stomach or bowel distention. No focal inflammatory change. No findings of constipation. PELVIS: APPENDIX: Normal. No evidence of acute appendicitis. BLADDER: Unremarkable. REPRODUCTIVE: Normal size uterus and ovaries. No adnexal mass. Prominent hypodense endometrium if this patient is postmenopausal, with the endometrial stripe measuring approximately 14 mm in thickness. ABDOMEN and PELVIS: INTRAPERITONEAL SPACE: Unremarkable. No ascites or other fluid collection. No free air. BONES/JOINTS: Asymmetric degenerative narrowing of the right hip joint space with surrounding osteophytes. Lower lumbar midline laminectomy. Large osteophytes about the lower thoracic disc spaces. Degenerative narrowing of the lumbar disc spaces with multilevel vacuum disc phenomenon, broad-based annular bulging, and marginal osteophytes. No suspicious lytic or blastic abnormality. SOFT TISSUES: Unremarkable. No discrete abdominal or pelvic wall hernia. VASCULATURE: Unremarkable. Abdominal aorta is non-dilated. LYMPH NODES: Unremarkable. No enlarged lymph nodes. CT/Abdomen/Pelvis W IV Cont ONLY IMPRESSION: 1. 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 2. Normal appendix. 3. No findings of small bowel obstruction, diverticulitis or obstructive uropathy. Electronically Signed: Albert Wilkinson MD at 3:57 EDT ,
--- NOTE | 2024-06-14 01:36 | EX.ED.DYSGE1 ---
HPI History of Present Illness Chief Complaint: Constipation Informant: patient and spouse/S.O. Narrative Narrative: 58-year-old female presenting to the emergency room with a chief complaint of abdominal pain. Patient states that she has not had a bowel movement of any significance for 2 weeks. She states she has been drinking lots of water and it has not helped. She states that she took Linzess without relief. She describes a left-sided abdominal pain is burning. She notes now she has had chills and vomiting for a week and a half. She also notes a history of occipital neuralgia describes that as a burning pain and has that going on today as well that she states that the reason that she came in is the continued pain and constipation of the abdomen. [facility] Medical History Bipolar disorder Diabetes History of renal disease Low iron Back pain Spinal stenosis Neuropathy Scoliosis Herniated disc, cervical Syncope Dietary restriction Diarrhea Gastric reflux CPAP (continuous positive airway pressure) dependence Smoker Shortness of breath on exertion Leg cramps History of pain when walking History of edema Hypertension Chest pain Pain Seizures Occipital neuralgia Depression with anxiety Arthritis Abnormal mammogram Home Medications ?Medication ?Instructions ?Recorded ?Last Taken ?Type furosemide 20 mg tablet 20 mg PO DAILY 03/12/22 Unknown History zolpidem 5 mg tablet 5 mg PO QHS 03/12/22 Unknown History ferrous sulfate 325 mg (65 mg 325 mg PO BID 01/14/23 Unknown History iron) tablet (FeroSul) gabapentin 600 mg tablet 600 mg PO BID 03/19/23 Unknown History hydrocodone-acetaminophen 5-325mg 1 tab PO BID PRN pain 03/19/23 Unknown History 5mg-325mg meloxicam 7.5 mg tablet 7.5 mg PO DAILY #30 tabs 04/12/23 Unknown Rx amlodipine 5 mg tablet 5 mg PO DAILY 05/18/24 Unknown History benazepril 40 mg tablet 40 mg PO QDAY 05/18/24 Unknown History oxcarbazepine 150 mg tablet 150 mg PO DAILY 05/18/24 Unknown History risperidone 2 mg tablet 2 mg PO QDAY 05/18/24 Unknown History semaglutide 0.25 mg or 0.5 mg (2 0.25 mg subcut QWEEK 05/18/24 Unknown History mg/3 mL) subcutaneous pen injector (Ozempic) Allergy/AdvReac Type Severity Reaction Status Date / Time haloperidol (From Haldol) Allergy Severe Angioedema Verified 06/14/24 01:11 Family History Mother Asthma Arthritis Diabetes Hypertension High cholesterol Uncle Colon cancer CVA (cerebral vascular accident) Aunt Cancer leukemia Heart disease Surgical History Hx of colonoscopy History of carpal tunnel surgery of left wrist History of carpal tunnel surgery of right wrist History of lumbar laminectomy History of shoulder surgery History of bilateral breast reduction surgery Social History Smoking Status: Current every day smoker tobacco type: cigarettes second hand exposure: No alcohol intake: never substance use type: does not use what type of physical activity do you participate in: none seatbelt use: always ROS ROS ED Constitutional Constitutional ED: Reports chills; Denies fever(s) or weight loss Eyes Eyes: Denies change in vision or diplopia ENT ENT ED: Denies ear pain, rhinorrhea or sore throat Cardiovascular Cardiovascular: Denies chest pain, orthopnea, palpitations or racing heartbeat Respiratory/Chest Respiratory/Chest: Denies cough, dyspnea or orthopnea Gastrointestinal Gastrointestinal: Reports abdominal pain and constipation; Denies diarrhea, nausea or vomiting Genitourinary Genitourinary ED: Denies dysuria, hematuria or urinary frequency Musculoskeletal Musculoskeletal: Denies arthralgias or myalgias Integumentary Denies abscess or rash Neurologic Neurologic: Reports other Details: Occipital pain ; Denies headache(s) or weakness Psychiatric Psychiatric: Denies anxiety, depression, suicidal ideation or suicidal thoughts Endocrine Endocrinology: Denies polydipsia, polyphagia or polyuria Allergic/Immunologic Allergic/Immunologic ED: Denies mouth swelling, tongue swelling or urticaria EXAM Physical Exam Const Vital Signs: 06/14/24 01:11 06/14/24 03:08 Temperature 98 F Temperature Source Temporal Pulse Rate 88 85 Respiratory Rate 18 17 Blood Pressure 143/89 H 148/91 H Blood Pressure Mean 107 110 Pulse Ox 98 97 Oxygen Delivery Method Room Air Room Air Positive well nourished and well developed General Appearance ED: well developed HEENT Reports normocephalic, head/scalp atraumatic and moist mucous membranes Eyes PERRL and EOMs intact bilaterally Neck no lymphadenopathy, supple and no JVD Resp normal respiratory effort and clear to auscultation bilaterally Cardio regular rate, regular rhythm and no murmurs GI non-distended and no masses Auscultation: normoactive bowel sounds Palpation: soft and tender LLQ; Negative for guarding or rebound tenderness present Back/Spine no CVA tenderness and normal ROM Extremity normal to inspection General Extremety ED: Negative for edema General Extremity: Negative for edema Neuro oriented x3 and CN's II-XII intact bilaterally Sensorium / Orientation: alert Motor Exam: strength 5/5 throughout Psych mental status grossly normal Mood & Affect: Negative for depressed or tearful Skin no rashes or lesions noted and no wounds MDM MDM MDM Narrative Medical decision making narrative: Differential diagnosis includes but not limited to constipation ureterolithiasis diverticulitis colitis bowel obstruction volvulus White count 7.8 with hemoglobin of 15.2. BMP shows a creatinine 1.08 normal liver enzymes and lipase. Urinalysis was negative for overt infection or obvious hematuria. CT of the pelvis with IV contrast was obtained. This shows a prominent endometrial stripe. I do not see a significant amount of stool. Not sure where the patient's burning abdominal pain is coming from. Appears to low to feel confident this would be reflux in nature. I do not feel that the patient is significantly constipated. If she wishes to have a bowel movement she can try some magnesium citrate but again I am not sure that is going to help her symptoms. I would recommend gynecology follow-up as well as primary care. Patient notes understanding the plan will try some magnesium citrate. History & Record Review Discussion w/independent historian: Patient and Significant other Lab Data Attestation: I reviewed the patient's lab results. Labs: Laboratory Results - last 24 hr 06/14/24 06/14/24 01:18 01:48 WBC 7.8 RBC 4.93 Hgb 15.2 H Hct 45.9 MCV 93.1 MCH 30.8 MCHC 33.1 RDW Std Deviation 47.8 H RDW Coeff of Renate 14.1 Plt Count 301 MPV 10.7 Immature Gran % (Auto) 0.300 Neut % (Auto) 53.4 Lymph % (Auto) 37.6 Hardin % (Auto) 5.2 Eos % (Auto) 3.2 Baso % (Auto) 0.3 Absolute Neuts (auto) 4.2 Absolute Lymphs (auto) 2.95 Nucleated RBC % 0 Sodium 141 Potassium 3.5 Chloride 107 Carbon Dioxide 28.0 Anion Gap 6 BUN 10 Creatinine 1.08 H Estim Creat Clear Calc 68.55 Est GFR (MDRD) Af Amer 67 Est GFR (MDRD) Non-Af 56 L BUN/Creatinine Ratio 9.3 L Glucose 101 Calcium 9.2 Total Bilirubin 0.20 Direct Bilirubin 0.11 AST 12 L ALT 21 Alkaline Phosphatase 108 Total Protein 7.2 Albumin 3.6 Globulin 3.6 Lipase 46 Urine Color Yellow Urine Clarity Clear Urine pH 7.0 Ur Specific [place] 1.010 Urine Protein Negative Urine Glucose (UA) Normal Urine Ketones Negative Urine Occult Blood Negative Urine Nitrite Negative Urine Bilirubin Negative Urine Urobilinogen Normal Ur Leukocyte Esterase Negative Urine RBC 0 SEEN Urine WBC 0 SEEN Ur Squamous Epith Cells 5-10 SEEN Ur Transition Epith Cell 0-5 SEEN Urine Bacteria 0 SEEN Urine Mucus 0 SEEN Radiography Diagnostic Testing: Clinical Impression(s) from Imaging Studies Abdomen/Pelvis CT 06/14/24 01:31 IMPRESSION: 1. 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 2. Normal appendix. 3. No findings of small bowel obstruction, diverticulitis or obstructive uropathy. Electronically Signed: Albert Wilkinson MD at 3:57 EDT Reading Location ID and State: [facility] / [place] Tel , Service support , Discharge Plan Triage Chief Complaint: Constipation Other Complaint: Abd Pain Headache ED Provider: Clint Wells Dx/Rx/DC Orders Clinical Impression: Abdominal pain, Constipation, Vomiting Instructions: Abdominal Pain, ED Constipation (Adult) Prescriptions: No Action hydrocodone-acetaminophen 5-325 mg tablet 1 tab PO BID PRN (Reason: pain) ferrous sulfate [FeroSul] 325 mg (65 mg iron) tablet 325 mg PO BID amlodipine 5 mg tablet 5 mg PO DAILY risperidone 2 mg tablet 2 mg PO QDAY Ozempic 0.25 mg or 0.5 mg (2 mg/3 mL) pen injector 0.25 mg subcut QWEEK benazepril 40 mg tablet 40 mg PO QDAY oxcarbazepine 150 mg tablet 150 mg PO DAILY zolpidem 5 mg tablet 5 mg PO QHS Patient Comments: TAKE 1 TABLET BY MOUTH ONCE DAILY AT BEDTIME furosemide 20 mg tablet 20 mg PO DAILY Patient Comments: TAKE 1 TABLET BY MOUTH ONCE DAILY gabapentin 600 mg tablet 600 mg PO BID meloxicam 7.5 mg tablet 7.5 mg PO DAILY Qty: 30 0RF Primary Care Provider: Daniel Stapleton Referrals: Daniel Stapleton MD [Primary Care Provider] - 3-5 Days if not improving Print Language: Syriac Disposition Disposition: Home, Self Care Discharge Date/Time: 06/14/24 04:45
[2024-06-14] MEDS: 0.9% Normal Saline (1000mL) 1,000 ML 999 ML IV (01:40)
[2024-06-14] MEDS: Ondansetron 4 MG/2 ML Vial IV (01:40)
[2024-06-14 01:48] LABS: Absolute Lymphocyte Count 2.95 X10^3/uL (0.83-4.51); Absolute Neutrophil Count 4.2 X10^3/uL (2.0-7.7); Basophil# 0.02 X10^3/uL; Basophil% 0.3 % (0-1); Eosinophil# 0.25 X10^3/uL; Eosinophils% 3.2 % (0-5); Hematocrit 45.9 % (37-47); Hemoglobin 15.2 g/dL (12.0-15.0); Lymphocyte # 2.95 X10^3/ul (0.83-4.51); Lymphocyte % 37.6 % (19-41); Mean Corp Hgb Conc 33.1 g/dL (32-36); Mean Corpuscular Hgb 30.8 pg (27.0-32.0); Mean Corpuscular Volume 93.1 fL (81-99); Mean Platelet Vol. 10.7 fl (6.2-12.0); Monocyte# 0.41 X10^3/uL; Monocyte% 5.2 % (0-10); NRBC Flagged by Analyzer 0 % (0-5); Neutrophil # 4.19 X10^3/uL (2.7-7.7); Neutrophil % 53.4 % (47-70); Platelet Count 301 K/mm3 (150-450); RBC Distribution Width CV 14.1 % (11.6-14.6); RBC Distribution Width SD 47.8 fl (35.1-43.9); Red Blood Count 4.93 M/mm3 (4.2-5.4); White Blood Count 7.8 K/mm3 (4.4-11.0)
[2024-06-14 01:53] LABS: Bacteria 0 SEEN /hpf (None Seen); Mucous, Urine 0 SEEN /hpf (<or=2+); Red Blood Cells-Urine 0 SEEN /hpf (0-5); White Blood Cells 0 SEEN /hpf (0-5)
[2024-06-14 01:56] LABS: Color, Urine Yellow (Yellow); Glucose, Dipstick Normal (Normal); Ketone-Dipstick Negative (Negative); Leukocyte Esterase-Dipstick Negative /ul (Negative); Nitrite-Dipstick Negative (Negative); Occult Blood-Urine Negative /ul (Negative); Protein-Dipstick Negative (Negative); Urine Bilirubin Dipstick Negative (Negative); Urine Clarity Clear (Clear); Urine Urobilinogen Normal (Normal)
[2024-06-14 02:03] LABS: Squamous Epithelial Cells - UA 5-10 SEEN /hpf (5-10); Transitional Epithelial - Ur 0-5 SEEN /hpf (0-5)
[2024-06-14 02:18] LABS: AST(SGOT) 12 U/L (15-37); Alanine Aminotransfer ALT/SGPT 21 U/L (13-56); Albumin, Serum 3.6 g/dL (3.2-5.0); Alkaline Phosphatase 108 U/L (45-117); Anion Gap 6 (5-15); BUN 10 mg/dL (7-18); BUN/Creat Ratio 9.3 RATIO (10-20); Bilirubin, Direct 0.11 mg/dL (0.00-0.30); Calcium,Total 9.2 mg/dL (8.5-10.1); Chloride 107 mmol/L (98-107); Creatinine, Serum 1.08 mg/dL (0.55-1.02); EST Glomerular Filtration Rate 56 mL/min (>60); Est Glom Filt Rate - Afr Amer 67 mL/min (>60); Estimated Creatinine Clearance 68.55 ml/min; Globulin 3.6 g/dL (2.2-4.2); Glucose 101 mg/dL (74-106); Lipase 46 U/L (13-75); Potassium 3.5 mmol/L (3.5-5.1); Protein, Total 7.2 g/dL (6.4-8.2); Sodium Level 141 mmol/L (136-145)
[2024-06-14 03:08] VITALS: BP 148/91; PULSE 85; RESP 17; O2SAT 97
== END 2024-06-14 04:45 | disposition home or self-care (01) ==
PROVIDERS: Emergency Provider Emergency Medicine; PCP Family Medicine; Visit Provider Emergency Medicine
DX: K59.00 Constipation, unspecified (principal); F31.9 Bipolar disorder, unspecified; E11.40 Type 2 diabetes mellitus with diabetic neuropathy, unspecified; R11.10 Vomiting, unspecified; I10 Essential (primary) hypertension; R10.9 Unspecified abdominal pain; F17.210 Nicotine dependence, cigarettes, uncomplicated; F41.8 Other specified anxiety disorders
CPT/HCPCS: 74177; 80048; 80076; 81001; 83690; 85025; 96361; 96374; 99285; J7030; Q9967; A4216; J2405

== ENCOUNTER → 2024-06-30 | Outpatient (CLI) | payer MEDICARE, SELFPAY ==
--- NOTE | 2024-06-30 10:54 | RAD_ITS ---
STUDY: X-RAY - RIGHT SHOULDER REASON FOR EXAM: Female, 58 years old. PAIN TECHNIQUE: 4 view(s) of the shoulder. COMPARISON: None. FINDINGS: There is mild degenerative arthrosis of the glenohumeral articulation. Normal acromioclavicular joint. Normal acromion. Normal humeral head and visualized proximal humerus. There is periarticular soft tissue calcification consistent with a calcific tendinitis. Normal visualized pulmonary apex. RAD/Shoulder min 2 Views IMPRESSION: Mild glenohumeral joint arthrosis. 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 Electronically Signed: Emile Bella MD at 13:42 EDT ,
== END | disposition home or self-care (01) ==
LOC: MTRAD 10:50
PROVIDERS: PCP Family Medicine; Referring Provider Family Medicine; Visit Provider Family Medicine
DX: M25.511 Pain in right shoulder (principal)
CPT/HCPCS: 73030

== ENCOUNTER 2024-07-11 09:36 | Emergency (ER) | payer MEDICARE, SELFPAY ==
[2024-07-11 09:38] VITALS: BP 116/77; PULSE 86; RESP 15; TEMP 35; O2SAT 95; BMI 31.6
[2024-07-11 09:44] VITALS: O2SAT 95
--- NOTE | 2024-07-11 10:46 | RAD_ITS ---
EXAM: XR RIGHT HIP WITH PELVIS WHEN PERFORMED, 2 OR 3 VIEWS CLINICAL INDICATION: Injury/Pain TECHNIQUE: Two or three views of the right hip with pelvis when performed. COMPARISON: No relevant prior studies available. FINDINGS: BONES/JOINTS: Narrowing of the right hip joint space with degenerative sclerosis and subchondral cystic changes in the acetabular roof and right femoral head. No displaced fracture. Sacroiliac joint is unremarkable. No widening of the pubic symphysis. SOFT TISSUES: Unremarkable. No soft tissue swelling or gas. RAD/HIP, UNI W/ Pelvis 2-3 Views IMPRESSION: 1. Degenerative osteoarthrosis of right hip with degenerative sclerosis and subchondral cysts in the acetabular roof and right femoral head. 2. No acute osseous abnormality of the pelvis and right hip. Electronically Signed: Magno Mcelroy MD at 12:06 EDT ,
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
[2024-07-11] MEDS: Ibuprofen 600 MG Tablet PO (11:08)
[2024-07-11] MEDS: Lidocaine 5% Patch 1 PATCH TOPICAL (11:08)
[2024-07-11] MEDS: cycloBENZAPRine HCl 10 MG Tablet PO (11:09)
[2024-07-11 12:42] VITALS: BP 127/63; PULSE 72; RESP 15; TEMP 36.4; O2SAT 98
== END 2024-07-11 12:44 | disposition home or self-care (01) ==
PROVIDERS: Emergency Provider Emergency Medicine; PCP Family Medicine; Visit Provider Emergency Medicine
DX: S16.1XXA Strain of muscle, fascia and tendon at neck level, initial encounter (principal); F31.9 Bipolar disorder, unspecified; E11.40 Type 2 diabetes mellitus with diabetic neuropathy, unspecified; M16.11 Unilateral primary osteoarthritis, right hip; I10 Essential (primary) hypertension; M25.512 Pain in left shoulder; K21.9 Gastro-esophageal reflux disease without esophagitis; F17.210 Nicotine dependence, cigarettes, uncomplicated; V47.5XXA Car driver injured in collision with fixed or stationary object in traffic accident, initial encounter
CPT/HCPCS: 73502; 99283